=== PATIENT | female | born 1960 | race Caucasian/White ===

== ENCOUNTER → 2019-11-05 09:04 | Outpatient (BNVA) | payer MEDICARE, SELFPAY | PROVIDERS: Family Provider Family Medicine; PCP Family Medicine; Visit Provider Family Medicine | DX: I10 Essential (primary) hypertension (principal); E78.5 Hyperlipidemia, unspecified; E03.9 Hypothyroidism, unspecified; K21.9 Gastro-esophageal reflux disease without esophagitis; Z12.11 Encounter for screening for malignant neoplasm of colon; N95.1 Menopausal and female climacteric states; R39.9 Unspecified symptoms and signs involving the genitourinary system; I26.99 Other pulmonary embolism without acute cor pulmonale | CPT/HCPCS: 80053; 80061; 81003; 82044; 82607; 84443; 85025; 87077; 87086; 87186 ==

== ENCOUNTER 2019-11-07 09:24 | Outpatient (CLI) | payer MEDICARE, SELFPAY ==
--- NOTE | 2019-11-07 09:36 | MM_ITS ---
WS: [id number] BILATERAL SCREENING DIGITAL MAMMOGRAM WITH CAD HISTORY: SCREENING COMPARISON: 11/01/2018 and 10/25/2017 Bilateral CC and MLO views submitted. Computer aided detection analyzed. Breast composition: There are scattered areas of fibroglandular density. No suspicious masses, microc alcifications or architectural distortion. Benign calcifications and scattered asymmetries. MM/[place] [id number] IMPRESSION: BI-RADS: 2-Benign FOLLOW UP: 1 Year Follow-up
== END 2019-11-07 09:25 | disposition home or self-care (01) ==
LOC: RADSHAW 09:24
PROVIDERS: Family Provider Family Medicine; PCP Family Medicine; Visit Provider Family Medicine
DX: Z12.31 Encounter for screening mammogram for malignant neoplasm of breast (principal)
CPT/HCPCS: 77067

== ENCOUNTER 2019-12-12 07:13 | Day surgery (SDC) | payer MEDICARE, SELFPAY ==
[2019-12-11 13:54] VITALS: BMI 33.6
--- NOTE | 2019-12-12 07:50 | ANES.PREANE2 ---
Pre-Anesthetic Assessment Pre-Anesthetic Assessment: Height/Weight: Height 1.6 m Weight 86.183 kg Preop Diagnosis: abdominal pain Proposed Procedure: Operation Date: 12/12/19 09:05 Proposed Procedures p EGD/Colon 15386 75228 K59.00 R10.9(Not Applicable) - Toñito Daly MD s Colonoscopy(Not Applicable) - Toñito Daly MD Familial anesthetic complications: None Was Beta Leif taken within 24 hours: N/A Last intake: NPO > 8 hrs Social: Social History: No alcohol and No tobacco Exam: Pre-Anes Outpt Exam: alert, oriented x 3, clear to auscultation bilaterally and regular rate & rhythm Airway: Cervical ROM: WNL MP: 2 Dentition: False Additional comments: dentures Pulmonary: Comments: 2 PEs in june from DVT after bowel impaction (not on blood thinners anymore) CV/HEM: CV/HEM: HTN : : None reported Hepatic: Hepatic: None reported GI: GI: GERD Metabolic: Metabolic: Hyperlipidemia and Thyroid Neuropsych: Neuropsych: None reported Anesthetic Plan: ASA status: 2 Anesthesia: MAC Risk of > 500 ml blood loss (7ml/kg in children): No PFSH Anesthesia PFSH: Medical History (Updated 11/15/19 @ 11:18 by Toñito Daly MD) Bilateral pulmonary embolism Diagnosed in 06/20 - . for 3-6 months. Dyslipidemia Essential hypertension Fibromyalgia GERD (gastroesophageal reflux disease) Hot flashes due to menopause Hypothyroid Osteoarthritis Surgical History (Updated 11/15/19 @ 11:10 by Toñito Daly MD) H/O colonoscopy 10-15 yrs ago H/O: hysterectomy History of hip surgery History of tonsillectomy Social History Smoking and tobacco status: former smoker Alcohol intake: current Alcohol type: wine Household members: spouse Marital status: Current occupational status: retired Data Anesthesia Cardiac Studies: No Data to Display
[2019-12-12 08:15] VITALS: BP 143/90; PULSE 79; RESP 18; TEMP 36.3
[2019-12-12] MEDS: sodium chloride 0.9% 1,000 ML 30 ML (08:24)
--- NOTE | 2019-12-12 08:58 | P.HP_ITS ---
Same Day Surgery H&P Indication for Procedure/HPI DATE OF PROCEDURE: December 12, 2019 CHIEF COMPLAINT/INDICATIONFOR SURGICAL PROCEDURE: gerd/abdominal pain/constipation PREOP DIAGNOSIS: abdominal pain PLANNED PROCEDRUE: Operation Date: 12/12/19 09:05 Proposed Procedures p EGD/Colon 83850 04386 K59.00 R10.9(Not Applicable) - Toñito Daly MD s Colonoscopy(Not Applicable) - Toñito Daly MD Medications/Allergies* Home Medications Medication Instructions Recorded Confirmed Type aspirin 81 mg tablet,delayed 81 mg PO DAILY 11/05/19 12/12/19 History release polyethylene glycol 3350 17 gram 17 gm PO .qod each 11/05/19 12/12/19 History oral powder packet cholecalciferol (vitamin D3) 50,000 unit PO Q7D wafer 11/15/19 12/12/19 History 50,000 unit oral wafer multivitamin 1 tab PO DAILY 11/15/19 12/12/19 History estradiol 1 mg PO DAILY 12/11/19 12/12/19 History Allergies/Adverse Reactions Allergy/AdvReac Type Severity Reaction Status Date / Time No Known Allergies Allergy Verified 11/15/19 10:51 Pertinent History/Comorbid Conditions* Medical History (Updated 11/15/19 @ 11:18 by Toñito Daly MD) Bilateral pulmonary embolism Diagnosed in 06/20 - . for 3-6 months. Dyslipidemia Essential hypertension Fibromyalgia GERD (gastroesophageal reflux disease) Hot flashes due to menopause Hypothyroid Osteoarthritis Surgical History (Updated 11/15/19 @ 11:10 by Toñito Daly MD) H/O colonoscopy 10-15 yrs ago H/O: hysterectomy History of hip surgery History of tonsillectomy Family History (Updated 11/15/19 @ 10:57 by Jocelyn Monzon LPN) Diverticulitis Father Cancer Unknown thyroid, lung, breast, Denies family history of Anesthesia complication Bleeding disorder Social History Smoking and tobacco status: former smoker Alcohol intake: current Alcohol type: wine Household members: spouse Marital status: Current occupational status: retired Pertinent Exam Findings alert, oriented x 3 and clear to auscultation bilaterally Recommendations Surgery/Procedure today Coding Level of Care 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
[2019-12-12 09:24] VITALS: BP 116/67; PULSE 70; RESP 16; TEMP 36.6; O2SAT 96
[2019-12-12 09:39] VITALS: BP 120/77; PULSE 64; RESP 18; TEMP 36.5; O2SAT 97
== END 2019-12-12 10:28 | disposition home or self-care (01) ==
PROVIDERS: Family Provider Family Medicine; PCP Family Medicine; Visit Provider Surgery
PROC: 0DJ08ZZ Inspection of Upper Intestinal Tract, Via Natural or Artificial Opening Endoscopic (ICD-10-PCS; CPT 43235; principal; 2019-12-12 09:05)
PROC: 0DJD8ZZ Inspection of Lower Intestinal Tract, Via Natural or Artificial Opening Endoscopic (ICD-10-PCS; CPT 45378; 2019-12-12 09:05)
DX: R10.9 Unspecified abdominal pain (principal); K59.00 Constipation, unspecified; K29.30 Chronic superficial gastritis without bleeding; E78.5 Hyperlipidemia, unspecified; I10 Essential (primary) hypertension; M79.7 Fibromyalgia; K21.9 Gastro-esophageal reflux disease without esophagitis; M19.90 Unspecified osteoarthritis, unspecified site; Z87.891 Personal history of nicotine dependence; K44.9 Diaphragmatic hernia without obstruction or gangrene; Z86.711 Personal history of pulmonary embolism; Z86.718 Personal history of other venous thrombosis and embolism; E03.9 Hypothyroidism, unspecified
CPT/HCPCS: 12345; 43239; 45330; 88305; J2704; J7030

== ENCOUNTER 2019-12-13 07:05 | Day surgery (SDC) | payer MEDICARE, SELFPAY ==
[2019-12-12 10:24] VITALS: BMI 33.6
--- NOTE | 2019-12-13 07:31 | ANES.PREANE2 ---
Pre-Anesthetic Assessment Pre-Anesthetic Assessment: Height/Weight: Height 1.6 m Weight 86.183 kg Preop Diagnosis: abdominal pain Proposed Procedure: Operation Date: 12/13/19 08:30 Proposed Procedures p Colonoscopy(Not Applicable) - Toñito Daly MD Was Beta Leif taken within 24 hours: N/A Last Intake: 00:00 Social: Social History: No alcohol and No tobacco (hx of smoking 20 years ago) Exam: Pre-Anes Outpt Exam: alert, oriented x 3 and clear to auscultation bilaterally Airway: Submandibular: WNL Cervical ROM: WNL MP: 2 Dentition: Full (dentures out) History/ROS: No significant history except as noted Pulmonary: Pulmonary: None reported CV/HEM: CV/HEM: HTN : : None reported Hepatic: Hepatic: None reported GI: GI: GERD (uncontrolled with meds) Metabolic: Metabolic: Morbid obesity and Thyroid (hypothyroid) Musc/skel: Musc/skel: Fibromyalgia Neuropsych: Neuropsych: None reported Anesthetic Plan: ASA status: 2 Anesthesia: MAC PFSH Anesthesia PFSH: Medical History (Updated 11/15/19 @ 11:18 by Toñito Daly MD) Bilateral pulmonary embolism Diagnosed in 06/20 - Anticoag. for 3-6 months. Dyslipidemia Essential hypertension Fibromyalgia GERD (gastroesophageal reflux disease) Hot flashes due to menopause Hypothyroid Osteoarthritis Surgical History (Updated 11/15/19 @ 11:10 by Toñito Daly MD) H/O colonoscopy 10-15 yrs ago H/O: hysterectomy History of hip surgery History of tonsillectomy Social History Smoking and tobacco status: former smoker Alcohol intake: current Alcohol type: wine Household members: spouse Marital status: Current occupational status: retired Data Anesthesia Cardiac Studies: No Data to Display
[2019-12-13 07:33] VITALS: BP 137/80; PULSE 81; RESP 18; TEMP 36.1; O2SAT 99
[2019-12-13] MEDS: sodium chloride 0.9% 1,000 ML 30 ML (07:35)
[2019-12-13 09:11] VITALS: BP 106/69; PULSE 80; RESP 16; TEMP 36.3; O2SAT 93
[2019-12-13 09:19] VITALS: BP 113/70; PULSE 81; RESP 18; O2SAT 94
--- NOTE | 2019-12-13 10:02 | ANE.PACU2 ---
 Inpatient post-anesthesia follow up: Airway intact: Yes Vital signs: Temperature 97.3 F Pulse Rate 81 Respiratory Rate 18 Blood Pressure 113/70 Pulse Oximetry 94 Oxygen Delivery Me thod Room Air Oxygen Flow Rate 3 Fraction of Inspir ed Oxygen Hydration adequate: Yes Nausea and vomiting: No Pain level: 1 Mental status: Baseline
== END 2019-12-13 09:55 | disposition home or self-care (01) ==
PROVIDERS: Family Provider Family Medicine; PCP Family Medicine; Visit Provider Surgery
PROC: 0DJD8ZZ Inspection of Lower Intestinal Tract, Via Natural or Artificial Opening Endoscopic (ICD-10-PCS; CPT 45378; principal; 2019-12-13 08:30)
DX: K59.00 Constipation, unspecified (principal); K57.30 Diverticulosis of large intestine without perforation or abscess without bleeding; Z79.82 Long term (current) use of aspirin; E78.5 Hyperlipidemia, unspecified; I10 Essential (primary) hypertension; M79.7 Fibromyalgia; E03.9 Hypothyroidism, unspecified; M19.90 Unspecified osteoarthritis, unspecified site; Z87.891 Personal history of nicotine dependence
CPT/HCPCS: 45378; C9113; J2704; J7030

== ENCOUNTER → 2019-12-17 09:31 | Outpatient (BNVA) | payer MEDICARE, SELFPAY | PROVIDERS: Family Provider Family Medicine; PCP Family Medicine; Visit Provider Family Medicine | DX: E03.9 Hypothyroidism, unspecified (principal); R10.11 Right upper quadrant pain; N95.1 Menopausal and female climacteric states | CPT/HCPCS: 84443 ==

== ENCOUNTER 2019-12-27 07:01 | Outpatient (CLI) | payer MEDICARE, SELFPAY ==
--- NOTE | 2019-12-27 08:00 | US_ITS ---
WS: [id number] Complete ABDOMINAL ULTRASOUND HISTORY: RIGHT upper quadrant pain. COMPARISON: None available. Liver: 14.2 cm in length. Liver is normal size and echogenicity with no mass or intrahepatic dilatati on. Gallbladder: Normally distended gallbladder with numerous small stones. Stones measure up to 1.8 cm i n diameter. Gallbladder wall thickness: 0.2 cm. Pancreas: Head and tail of the pancreas are not visualized. CBD: 0.4 cm. Right kidney: 10.0 cm x 5.7 cm x 4.6 cm. No mass, cortical thickening or hydronephrosis. Left kidney: 10.4 cm x 5.3 cm x 5.5 cm. No mass, cortical thickening or hydronephrosis. Spleen: Normal size and echogenicity. Abdominal aorta and IVC are within normal limits. No ascites. US/US abdomen complete* [id number] IMPRESSION: 1. Cholelithiasis without acute cholecystitis. 2. No bile duct dilatation.
== END 2019-12-27 07:02 | disposition home or self-care (01) ==
LOC: US 07:03
PROVIDERS: Family Provider Family Medicine; PCP Family Medicine; Visit Provider Family Medicine
DX: R10.11 Right upper quadrant pain (principal); K80.20 Calculus of gallbladder without cholecystitis without obstruction
CPT/HCPCS: 76700

== ENCOUNTER → 2020-01-09 11:52 | Outpatient (BNVA) | payer MEDICARE, SELFPAY | PROVIDERS: Family Provider Family Medicine; PCP Family Medicine; Visit Provider Family Medicine | DX: R30.0 Dysuria (principal); N95.1 Menopausal and female climacteric states | CPT/HCPCS: 80053; 81000; 87077; 87086; 87186 ==

== ENCOUNTER 2020-01-29 17:23 | Emergency (ER) | payer MEDICARE, SELFPAY ==
[2020-01-29 17:32] VITALS: BP 136/70; PULSE 77; RESP 19; TEMP 36.8; O2SAT 97; BMI 34.0
--- NOTE | 2020-01-29 17:38 | US_ITS ---
WS: [id number] RIGHT UPPER QUADRANT ULTRASOUND HISTORY: RUQ pain, known gallbladder issue in past COMPARISON: 12/27/2019 Liver: 11.4 cm in length. Normal size and echogenicity with no intrahepatic dilatation. No mass. Gallbladder: Numerous stones in the gallbladder lumen. No hydrops. Stones are good size with a large amount shadowing at the neck. No pericholecystic fluid. CBD: 0.3 cm Pancreas: Normal size and echogenicity. Right kidney: 9.7 cm in length. Normal echogenicity with no mass or hydronephrosis. Aorta and IVC: Unremarkable. No ascites. US/US gall bladder [id number] IMPRESSION: Cholelithiasis, numerous gallstones with no evidence at this time of acute chol ecystitis.
--- NOTE | 2020-01-29 17:39 | W.ED.ABDPA2 ---
HPI - Abdominal Pain General: Chief Complaint: Abdominal Pain Stated Complaint: ABD PAIN Time Seen by Provider: 01/29/20 17:36 History of Present Illness: HPI narrative: Patient is a 59-year-old female who comes to the ED with abdominal pain. Past medical history of GERD, right upper quadrant pain, hypertension, PE, hypothyroid is him and dyslipidemia. Patient has been having on and off right upper quadrant pain for the past several months. Back in November patient had an ultrasound of the gallbladder done and it showed that she had some gallstones. She was going to have a surgery to get her gallbladder removed but due to COVID-19 her surgery has been canceled and put off to a later date. She says yesterday the pain got worse and continued today. She rates the pain an 8 out of 10 and it is all in the right upper quadrant. She denies any fever, vomiting, chest pain, shortness of breath, diarrhea, blood in the stool, constipation, dysuria, hematuria. Associated Symptoms: Reports nausea; Denies chills, constipation, diarrhea, dysuria, fever(s), hematochezia, hematuria and vomiting Review of Systems Const: Denies: fever, chills or fatigue Eyes: Denies: change in vision or eye discomfort ENMT: Denies: throat pain, painful swallowing, nasal discharge or nasal congestion Card: Denies: chest pain, palpitations, edema, swelling of feet/ankles, shortness of breath on exertion or shortness of breath when lying down Resp: Denies: shortness of breath, productive cough or non-productive cough GI: Reports: abdominal pain (RUQ) and nausea; Denies: vomiting, diarrhea, constipation or blood in stool : Denies: flank pain, painful urination or blood in urine Musc: Denies: neck pain, back pain or extremity swelling Skin/Breast: Denies: rash or new lesion Neuro: Denies: headache, numbness in extremities or weakness in extremities PFSH ED PFSH: Medical History Bilateral pulmonary embolism Diagnosed in 06/20 - Anticoag. for 3-6 months. Dyslipidemia Essential hypertension Fibromyalgia GERD (gastroesophageal reflux disease) Hot flashes due to menopause Hypothyroid Osteoarthritis Surgical History H/O colonoscopy 12/13/19: NORMAL, repeat in 10 years H/O: hysterectomy History of hip surgery History of tonsillectomy Family History Father Diverticulitis Unknown Cancer thyroid, lung, breast, Denies family history of Anesthesia complication Bleeding disorder Social History Smoking and tobacco status: never smoked Alcohol intake: current Alcohol type: wine Household members: spouse Marital status: Current occupational status: retired History of recent travel: No Physical Exam Const: COMMON NORMALS: oriented x3 HENMT: COMMON NORMALS: normocephalic HEAD & SCALP: normocephalic MOUTH: oral and palatal mucosa normal THROAT: posterior oropharynx normal and uvula midline Eye: COMMON NORMALS: PERRL PUPIL: Yes PERRL Neck/C-Spine: COMMON NORMALS: supple GENERAL: Yes normal visual inspection Resp: COMMON NORMALS: normal respiratory effort, no retractions, no use of accessory muscles and clear to auscultation bilaterally AUSCULTATION: clear to auscultation bilaterally Cardio: COMMON NORMALS: regular rate, regular rhythm, S1 normal heart sound, S2 normal heart sound, no gallops, no clicks, no murmurs and peripheral pulses 2+ throughout RATE: regular rate RHYTHM: regular rhythm HEART SOUNDS: S1 normal and S2 normal PERIPHERAL PULSES: pulses 2+ throughout GI: COMMON NORMALS: normal to inspection, nondistended, normoactive bowel sounds, soft to palpation and no masses AUSCULTATION: Yes normoactive bowel sounds PALPATION: Yes soft and Yes tender Details: RUQ (with positive Pizano's sign.) : COMMON NORMALS: Yes no CVA tenderness BLADDER/KIDNEY EXAM: Yes no CVA tenderness Back/Pelvis: COMMON NORMALS: no CVA tenderness Extremity: COMMON NORMALS: normal to inspection and no pedal edema Neuro: COMMON NORMALS: oriented x3 GAIT: Yes normal gait Skin: COMMON NORMALS: no rashes or lesions noted GENERAL SKIN EXAM: no rashes or lesions noted and dry skin Course Reevaluation(s): Reevaluation #1: Patient symptoms greatly improved after IV fluids, morphine and Zofran. I discussed with her the lab results and the ultrasound findings. Vital Signs: Vital signs: Vital Signs Temperature 98.2 F 01/29/20 17:32 Pulse Rate 63 01/29/20 20:16 Respiratory Rate 14 01/29/20 20:16 Blood Pressure 107/52 01/29/20 20:16 Pulse Oximetry 99 01/29/20 20:16 MDM - Abdominal Pain MDM Narrative: Medical decision making narrative: Patient is a 59-year-old female who comes to the ED with right upper quadrant abdominal pain. Patient has history of gallstones and right upper quadrant pain. She was going to get her gallbladder removed, but due to COVID-19 her surgery was canceled. CBC showed a white blood cell count of 7.7. Ultrasound of the gallbladder was performed and showed gallstones, but no obstruction or gallbladder wall thickening seen. Patient was given IV fluids, morphine and Zofran while here on the unit and her symptoms greatly improved. I discussed with patient that she should follow-up with the surgeon Dr. Daly on potentially getting surgery rescheduled. Patient was discharged with biliary colic and given a written prescription for hydrocodone and some Zofran for nausea. I told her to drink plenty of fluids and stay hydrated and she can return to the ED if symptoms worsen. Patient understood and agreed with plan. Lab Data: Attestation: I reviewed the patient's lab results. Labs: Lab Results 01/29/20 01/29/20 01/29/20 Range/Units 17:59 18:06 18:06 WBC 7.7 (4.0-10.0) 10^3/ uL RBC 4.07 L (4.1-5.3) 10^6/u L Hgb 11.7 (11.5-15.3) g/dL Hct 35.9 L (37.0-47.0) % MCV 88.2 (81-99) fL MCH 28.7 (28.0-34.0) pg MCHC 32.6 (30.0-36.0) g/dL RDW 14.4 (12.1-15.1) % Plt Count 443 H (130-400) 10^3/c mm MPV 11.1 H (7.4-10.4) fL Neut % (Auto) 44.7 % Lymph % (Auto) 44.5 % Haines % (Auto) 7.9 % Eos % (Auto) 1.4 % Baso % (Auto) 0.9 % Neut # (Auto) 3.4 (1.8-7.7) 10^3/u L Lymph # (Auto) 3.4 (0.8-4.8) 10^3/u L Haines # (Auto) 0.6 (0.2-0.9) 10^3/u L Eos # (Auto) 0.1 (0.0-0.8) 10^3/u L Baso # (Auto) 0.1 (0.0-0.1) 10^3/u L Nucleated RBC % (a uto) 0 % Nucleated RBCs # 0.0 /100WBC Sodium 141 (136-145) mmol/L Potassium 3.7 (3.5-5.1) mmol/L Chloride 100 (98-107) mmol/L Carbon Dioxide 29 (22-29) mmol/L Anion Gap 15.7 (5-19) BUN 16 (8-23) mg/dL Creatinine 1.1 H (0.5-0.9) mg/dL GFR Calculation 50.7 L (90-130) mL/min Glucose 103 (65-115) mg/dL Calculated Osmolal ity 289 (285-295) mOsm/k g Calcium 9.5 (8.5-10.5) mg/dL Total Bilirubin 0.2 (0.15-1.2) mg/dL AST 20 (0-32) U/L ALT 13 (0-33) U/L Alkaline Phosphata se 42 (35-105) IU/L Total Protein 7.2 (6.6-8.7) g/dL Albumin 4.2 (3.5-5.2) g/dL Globulin 3.0 (1.3-4.6) g/dL Lipase 28 (13-60) U/L Urine Color Yellow (Yellow) Urine Appearance Clear (CLEAR) Urine pH 9 H (5-7) Ur Specific Gravit y 1.020 (1.005-1.030) Urine Protein Neg (Negative) Urine Glucose (UA) Norm (Normal) Urine Ketones Negative (Negative) Urine Blood Neg (Negative) Urine Nitrate Negative (Negative) Urine Bilirubin Neg (NEGATIVE) Prot Sulfosalicyli c Acd Negative (Negative) Urine Urobilinogen Norm (Negative) mg/dL Ur Leukocyte Clara ase Negative (Negative) Urine RBC None (0-2) /hpf Urine WBC None (0-5) /hpf Ur Squamous Epith Cells 0-4 H (0-5) Urine Bacteria Trace (NONE) Imaging Data ^: US: Attestation: I personally reviewed and interpreted this imaging study as follows: Radiologist's impression: Ultrasound of the gallbladder?prelim report showed gallstones but no gallbladder wall thickening. contract technical writer stated there was no change when compared to ultrasound performed back in November. Discharge Plan Discharge Patient Disposition: Home, Self-Care Clinical Impression: Biliary colic symptom Gallstones without obstruction of gallbladder Qualifiers: Cholelithiasis location: gallbladder and bile duct Cholecystitis presence: without cholecystitis Qualified Code(s): K80.70 - Calculus of gallbladder and bile duct without cholecystitis without obstruction Condition: Stable Prescriptions: New Zofran 4 mg tablet 4 mg PO Q8H Qty: 14 RF: 0 No Action aspirin 81 mg tablet,delayed release (DR/EC) 81 mg PO DAILY RF: 0 polyethylene glycol 3350 [Miralax] 17 gram powder in packet 17 gm PO DAILY RF: 0 lisinopril 10 mg tablet 10 mg PO DAILY Qty: 90 RF: 1 fenofibrate nanocrystallized [Tricor] 145 mg tablet 145 mg PO DAILY Qty: 90 RF: 1 lovastatin 20 mg tablet 20 mg PO DAILY Qty: 90 RF: 1 pantoprazole [Protonix] 40 mg tablet,delayed release (DR/EC) 40 mg PO BID Qty: 180 RF: 1 cyclobenzaprine 10 mg tablet 10 mg PO TID Qty: 90 RF: 2 duloxetine [Cymbalta] 60 mg capsule,delayed release(DR/EC) 60 mg PO DAILY Qty: 90 RF: 1 oxybutynin chloride 5 mg tablet 5 mg PO BID Qty: 180 RF: 1 cholecalciferol (vitamin D3) 50,000 unit wafer 50,000 unit PO Q7D RF: 0 multivitamin Tablet 1 tab PO DAILY RF: 0 levothyroxine 112 mcg capsule 112 mcg PO DAILY Qty: 90 RF: 1 Azo Urinary Tab 2 tab PO DAILY RF: 0 Black Elderberry 2 tab PO DAILY RF: 0 Discharge Orders: Discharge Order (Routine); Ordered 01/29/20 Ordered By: Rosalio Jay Referrals: Lambert,Aviva, DO [Primary Care Provider] - Discharge Diet: Advance as tolerated Discharge Activity: Resume usual activity Patient Instructions: Biliary Colic (ED) Activity Restrictions/Additional Instructions: Call Dr. Daly within the next several days to discuss rescheduling your gallbladder surgery. Take the prescribed hydrocodone as needed for any acute pain. I am also sending you home with a prescription for Zofran and you can take that as needed for any nausea. Advance your diet as tolerated and try to avoid foods that aggravate symptoms. Drink plenty of fluids and stay hydrated. If you are having any worsening of symptoms he can return to the ED for reevaluation. 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
[2020-01-29 18:03] VITALS: O2SAT 93
[2020-01-29 18:13] VITALS: RESP 17
[2020-01-29] MEDS: morphine 4 mg/mL SDV 1 mL IVP (18:13)
[2020-01-29] MEDS: ondansetron 2 mg/ML SDV 2 mL 4 MG IVP (18:13)
[2020-01-29] MEDS: sodium chloride 0.9% 1,000 ML 999 ML IV (18:13)
[2020-01-29 18:40] LABS: Basophils # 0.1 10^3/uL (0.0-0.1); Basophils % 0.9 %; Eosinophils # 0.1 10^3/uL (0.0-0.8); Eosinophils % 1.4 %; Hematocrit 35.9 % (37.0-47.0); Hemoglobin 11.7 g/dL (11.5-15.3); Lymphocytes # 3.4 10^3/uL (0.8-4.8); Lymphocytes % 44.5 %; Mean Corpuscular HGB Conc 32.6 g/dL (30.0-36.0); Mean Corpuscular Hemoglobin 28.7 pg (28.0-34.0); Mean Corpuscular Volume 88.2 fL (81-99); Mean Platelet Volume 11.1 fL (7.4-10.4); Monocytes # 0.6 10^3/uL (0.2-0.9); Monocytes % 7.9 %; Neutrophils # 3.4 10^3/uL (1.8-7.7); Neutrophils % 44.7 %; Nucleated Red Blood Cells % 0 %; Platelet Count 443 10^3/cmm (130-400); Red Blood Count 4.07 10^6/uL (4.1-5.3); Red Cell Distribution Width 14.4 % (12.1-15.1); White Blood Count 7.7 10^3/uL (4.0-10.0)
--- NOTE | 2020-01-29 19:09 | PC.NURSE ---
Report received from Cedric VIVAS, and care transferred to SANGEETHA Cain
[2020-01-29 19:10] LABS: Alanine Aminotransferase 13 U/L (0-33); Albumin Level 4.2 g/dL (3.5-5.2); Alkaline Phosphatase 42 IU/L (35-105); Anion Gap 15.7 (5-19); Aspartate Amino Transferase 20 U/L (0-32); Blood Urea Nitrogen 16 mg/dL (8-23); Calcium 9.5 mg/dL (8.5-10.5); Carbon Dioxide 29 mmol/L (22-29); Chloride 100 mmol/L (98-107); Glomerular Filtration Rate 50.7 mL/min (90-130); Glucose 103 mg/dL (65-115); Lipase 28 U/L (13-60); Osmolality Calculated 289 mOsm/kg (285-295); Potassium 3.7 mmol/L (3.5-5.1); Sodium 141 mmol/L (136-145); Total Bilirubin 0.2 mg/dL (0.15-1.2); Total Protein 7.2 g/dL (6.6-8.7)
[2020-01-29 19:11] LABS: Bilirubin Urine Neg (NEGATIVE); Blood Urine Neg (Negative); Glucose Urine UA Norm (Normal); Ketones Urine Negative (Negative); Leukocyte Esterase Urine Negative (Negative); Nitrate Urine Negative (Negative); Protein Urine Neg (Negative); Sulfosalicylic Acid Urine Negative (Negative); Urine Appearance Clear (CLEAR); Urine Color Yellow (Yellow); Urobilinogen Urine Norm (Negative); pH Urine 9 (5-7)
[2020-01-29 19:12] LABS: Add Urine Culture? No; Bacteria Urine TRACE; Squamous Epithelial Cell Urine 0-4 (0-5)
[2020-01-29 19:15] VITALS: BP 101/48; PULSE 64; RESP 16; O2SAT 100
[2020-01-29 20:16] VITALS: BP 107/52; PULSE 63; RESP 14; O2SAT 99
--- NOTE | 2020-01-30 10:39 | DCPLANNER ---
manufacturing operations manager had message to schedule a follow up appointment for patient with Dr. Daly at [facility]. manufacturing operations manager called [facility], spoke with Jennifer. manufacturing operations manager gave clinic patients information, was told that it would be printed and reviewed. Clinic will call patient with appointment information.
--- NOTE | 2020-01-31 13:07 | DCPLANNER ---
Patient had an appointment scheduled for 01.31.20 with [facility] with Dr. Daly. Patient did attend the appointment.
== END 2020-01-29 20:20 | disposition home or self-care (01) ==
PROVIDERS: Emergency Provider Physician Assistant; Family Provider Family Medicine; PCP Family Medicine
DX: K80.70 Calculus of gallbladder and bile duct without cholecystitis without obstruction (principal); Z79.82 Long term (current) use of aspirin; Z86.711 Personal history of pulmonary embolism; E78.5 Hyperlipidemia, unspecified; I10 Essential (primary) hypertension; E03.9 Hypothyroidism, unspecified; K21.9 Gastro-esophageal reflux disease without esophagitis
CPT/HCPCS: 12345; 76705; 80053; 81001; 83690; 85025; 96360; 96361; 96374; 96375; 99283; J2270; J2405; J7030

== ENCOUNTER 2020-02-03 05:46 | Day surgery (SDC) | payer MEDICARE, SELFPAY ==
[2020-01-31 16:21] VITALS: BMI 34.0
[2020-02-03] VITALS (17 sets, daily range): BP systolic 113–146; BP diastolic 71–84; PULSE 59–96; RESP 14–24; TEMP 36.6–37.2; O2SAT 90–98
--- NOTE | 2020-02-03 06:23 | ANES.PREANE2 ---
Pre-Anesthetic Assessment Pre-Anesthetic Assessment: Height/Weight: Height 1.6 m Weight 87.09 kg Preop Diagnosis: Cholelithiasis Proposed Procedure: Operation Date: 02/03/20 07:20 Proposed Procedures p Laparoscopic Cholecystectomy 34650/K80.20(Not Applicable) - Toñito Daly MD Familial anesthetic complications: States her O2 sats will drop when she's given pain meds Was Beta Leif taken within 24 hours: N/A Last intake: Yesterday Social: Social History: No alcohol and No tobacco Exam: Pre-Anes Outpt Exam: alert, oriented x 3, clear to auscultation bilaterally and regular rate & rhythm Airway: Cervical ROM: WNL MP: 2 Dentition: False Pulmonary: Pulmonary: None reported CV/HEM: CV/HEM: HTN : : None reported Hepatic: Hepatic: None reported GI: GI: GERD Metabolic: Metabolic: Thyroid Musc/skel: Musc/skel: None reported Neuropsych: Neuropsych: None reported Anesthetic Plan: ASA status: 2 Anesthesia: General Risk of > 500 ml blood loss (7ml/kg in children): No PFSH Anesthesia PFSH: Social History Smoking and tobacco status: never smoked Alcohol intake: current Alcohol type: wine Household members: spouse Marital status: Current occupational status: retired History of recent travel: No Data Anesthesia Cardiac Studies: No Data to Display
[2020-02-03] MEDS: sodium chloride 0.9% 1,000 ML 30 ML IV (06:34)
--- NOTE | 2020-02-03 06:50 | W.PM.OPSUD ---
Surgery/Procedure H&P Update DATE OF PROCEDURE: February 03, 2020 DATE H&P PERFORMED: 01/31/20 H&P UPDATE INFORMATION: I have reviewed H&P completed within last 30 days, I have examined patient prior to procedure and No changes to prior documentation PREOP DIAGNOSIS: Cholelithiasis PLANNED PROCEDURE: Operation Date: 02/03/20 07:00 Proposed Procedures p Laparoscopic Cholecystectomy 56082/K80.20(Not Applicable) - Toñito Daly MD
--- NOTE | 2020-02-03 07:55 | PM.OP ---
Operative Report Date of procedure: February 03, 2020 Pre-op Diagnosis: Cholelithiasis Post-op diagnosis: same Procedure Done: Laparoscopic cholecystectomy Specimens removed/disposition: Gallbladder Surgeon: Toñito Daly Anesthesia: General Condition: stable Disposition: PACU Procedure: The patient was taken to the operating room and was intubated under general anesthesia. After the antibiotic had been administered, the abdomen was prepped and draped in a sterile manner. Using a #15 blade, a 1 centimeter infraumbilical curvilinear incision was made and using an open Mamie technique the peritoneal cavity was entered. A 10 millimeter port was placed and 15 millimeters of pneumoperitoneum was created. A 10 millimeter, 30 degrees scope was then introduced. Three 5 millimeter ports were placed in the epigastric, midclavicular and the anterior axillary line two fingerbreadths below the costal margin on the right side under the direct visualization. Ratcheted forceps were introduced into the lateral most port and was used to retract the fundus of the gallbladder cephalad and using forceps the infundibulum of the gallbladder was retracted laterally. Using L-hook cautery the peritoneum overlying the Calot's triangle was opened medially and laterally until the cystic duct and the cystic artery were skeletonized. Dissection was carried along the body of the gallbladder and after ensuring critical view of safety, 4 clips applied on the cystic duct and 3 clips applied on the cystic artery and cut leaving, 3 clips on the remaining portion of the duct and 2 clips on the remaining portion of the artery. The rest of the gallbladder was dissected off the liver using L-hook cautery. There was a small opening made in the body of the gallbladder with drainage of small amount of bile which was irrigated and suctioned out but there was no spillage of stones. There was no bleeding or bile leaking noted from the gallbladder fossa and the clips appeared to be in place. An EndoCatch bag was introduced to remove the gallbladder. All the ports were removed under direct visualization and there was no bleeding noted from the port sites. The fascia of the umbilicus was closed using [id number] 0 Vicryl sutures and the subcutaneous tissue was approximated using 3-0 Vicryl sutures. The skin at all four ports were closed using 4-0 Monocryl and Dermabond. A total of 10 millimeters of 0.5% Marcaine was infiltrated around the port sites. The patient was stable throughout the procedure.
--- NOTE | 2020-02-03 08:01 | SUR.PHASEI ---
0800 PATIENT TO OPS AT THIS TIME FROM OR. ORAL AIRWAY IN PLACE. SPO2 95% ON SIMPLE MASK AT 8L. 4 INCISIONS TO ABDOMEN, CDI.
--- NOTE | 2020-02-03 08:10 | SUR.PHASEI ---
0809 ORAL AIRWAY REMOVED AT THIS TIME. SPO2 97% ON SIMPLE MASK AT 8L.
[2020-02-03] MEDS: fentaNYL 50 mcg/mL INJ 2mL IVP ×2 (08:18→08:29)
[2020-02-03] MEDS: ondansetron 2 mg/ML SDV 2 mL 4 MG IVP ×3 (08:20→09:01)
--- NOTE | 2020-02-03 08:49 | SUR.PHASEI ---
0846 PATIENT TO OPS AT THIS TIME. PATIENT NOTED TO BE RESTING COMFORTABLE, WHEN PATIENT AWAKES SHE REPORTS PAIN 10/10. NAUSEA IMPROVED.
[2020-02-03] MEDS: morphine 4 mg/mL SDV 1 mL IVP (09:00)
[2020-02-03] MEDS: HYDROcodone-acetaminophen 5-325 mg Tablet 1 TAB PO (09:23)
== END 2020-02-03 09:55 | disposition home or self-care (01) ==
PROVIDERS: Family Provider Family Medicine; PCP Family Medicine; Visit Provider Surgery
PROC: 0FT44ZZ Resection of Gallbladder, Percutaneous Endoscopic Approach (ICD-10-PCS; CPT 47562; principal; 2020-02-03 07:00)
DX: K80.10 Calculus of gallbladder with chronic cholecystitis without obstruction (principal); I10 Essential (primary) hypertension; K21.9 Gastro-esophageal reflux disease without esophagitis; Z79.82 Long term (current) use of aspirin; E78.5 Hyperlipidemia, unspecified; M19.90 Unspecified osteoarthritis, unspecified site
CPT/HCPCS: 47562; 12345; 88304; 96374; 96375; J0690; J1100; J2001; J2270; J2405; J2704; J2710; J3010; J3490; J7030

== ENCOUNTER 2020-03-30 07:30 | Outpatient (CLI) | payer MEDICARE, SELFPAY ==
--- NOTE | 2020-03-30 08:00 | NM_ITS ---
WS: [id number] NUCLEAR MEDICINE GASTRIC STUDY CLINICAL INFORMATION: hiatal hernia TECHNIQUE: Following oral ingestion of cooked egg mixed with mCi technetium 99m sulfur colloid, anter ior images of the stomach were obtained over the course of 90 minutes. Activity curve was performed o danielle the course of 90 minutes with linear regression analysis. COMPARISON: None. FINDINGS: Ingestion of technetium 99m sulfur colloid egg mixture. Moderate delayed gastric emptying with 46% em ptying at 118 minutes. Only 18% emptying at 60 minutes. Calculated T1/2 is 145 minutes. (Normal 90 mi nutes) NM/NM gastric [place] st [id number] IMPRESSION: Delayed gastric emptying described above *Normal median T1 half 90 minutes for solid egg meal (45-110 minutes). Delayed gastric retention is defined as 90% retained at 1 hour, 60% at 2 hour s, 30% at 3 hours, and 10% at 4 hours (normal percent gastric retention is 37-9 0% at 1 hour, 30-60% at 2 hours, and 0-10% at 4 hours).
== END 2020-03-30 07:31 | disposition home or self-care (01) ==
LOC: NM 07:33
PROVIDERS: Family Provider Family Medicine; PCP Family Medicine; Visit Provider Surgery
DX: K44.9 Diaphragmatic hernia without obstruction or gangrene (principal)
CPT/HCPCS: 78264; A9541

== ENCOUNTER 2020-04-06 09:03 | Outpatient (CLI) | payer MEDICARE, SELFPAY ==
--- NOTE | 2020-04-06 09:15 | FL_ITS ---
WS: [id number] DOUBLE CONTRAST UPPER GI EXAMINATION HISTORY: K21.9 Gastro-esophageal reflux disease without esophagitis COMPARISON: 05/28/2019 CT evaluation. FLUOROSCOPY TIME: 2.0 minutes. Patient swallowed the barium mixture and air tablet without difficulty. Tertiary contractions in the mid to distal esophagus. The majority of the stomach is intrathoracic. T he greater curvature is positioned above the lesser curvature and there is a delayed emptying of the stomach into the duodenum. Marked distention of the stomach with air is likely symptomatic. Mild refl ux into the distal esophagus. No evidence for pneumatosis or wall thickening of the stomach. There is delayed emptying from the stomach and no additional barium was given. FL/FL upper GI w air* [id number] IMPRESSION: 1. 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 2. Entire stomach is intrathoracic. 3. Distal tertiary esophageal contractions and mild distal reflux.
== END 2020-04-06 09:04 | disposition home or self-care (01) ==
LOC: RAD 09:05
PROVIDERS: Family Provider Family Medicine; PCP Family Medicine; Visit Provider Surgery
DX: K21.9 Gastro-esophageal reflux disease without esophagitis (principal)
CPT/HCPCS: 74246

== ENCOUNTER 2020-04-07 16:53 | Observation (INO) | payer MEDICARE, SELFPAY ==
[2020-04-07] VITALS (13 sets, daily range): BP systolic 89–125; BP diastolic 60–79; PULSE 66–89; RESP 13–24; TEMP 36.5–37.4; O2SAT 95–100; BMI 34.5
--- NOTE | 2020-04-07 17:03 | CTR_ITS ---
PROCEDURE INFORMATION: Exam: CT Abdomen And Pelvis With Contrast Exam date and time: 04/07/2020 5:29 PM Age: 59 years old Clinical indication: Abdominal pain; Generalized; Prior surgery; Surgery date: 6+ months; Surgery type: Gb/hyst/ r-hip; Additional info: Abd pain TECHNIQUE: Imaging protocol: Computed tomography of the abdomen and pelvis with intravenous contrast. Radiation optimization: All CT scans at this facility use at least one of these dose optimization techniques: automated exposure control; mA and/or kV adjustment per patient size (includes targeted exams where dose is matched to clinical indication); or iterative reconstruction. Contrast material: VISI 320; Contrast volume: 95 ml; Contrast route: INTRAVENOUS (IV); COMPARISON: No relevant prior studies available. RADIATION DOSE METRICS: Total DLP (mGy-cm): 1401.2 FINDINGS: Limitations: Study is significantly limited by very dense contrast in the descending and sigmoid colon which creates significant streak artifact. Mediastinal space: A large hiatal hernia is present. Liver: There is no focal abnormality within the liver. Gallbladder and bile ducts: There has been a cholecystectomy. Pancreas: The pancreas is normal. Spleen: The spleen is normal. Adrenals: The adrenal glands are normal. Kidneys and ureters: There is a simple cyst in the right kidney. The left kidney is normal. There is no evidence of hydronephrosis. Stomach and bowel: The hiatal hernia contains most of the stomach. There is fluid distention of the region of the cecum and proximal ascending colon. There is focal thickening in the region of the hepatic flexure and ascending colon . This is of uncertain significance and could represent either focal contraction or spasm versus colonic tumor. Correlation with the patient's clinical history and any outside GI examination is suggested. Appendix: Not identified Intraperitoneal space: Unremarkable. No free air. No significant fluid collection. Vasculature: Unremarkable. No abdominal aortic aneurysm. Lymph nodes: Unremarkable. No enlarged lymph nodes. Bladder: Unremarkable as visualized. Reproductive: There has been a hysterectomy. Bones/joints: There is a right hip replacement.The lumbar spine demonstrates moderate degenerative changes at multiple levels. Soft tissues: Unremarkable. CT/CT abdomen pelvis w con* [id number] IMPRESSION: 1. Limited examination due to artifact created by dense contrast within portions of the colon. 2. Possible abnormality involving the ascending colon. Clinical correlation and further evaluation to exclude tumor is suggested. 3. Very large hiatus hernia. COMMENTS: Consistent with the [employer]'s Incidental Findings Committee white paper (J Am Alfonso Radiol 2018): Any incidental renal lesion less than 1.0 cm or classified as too small to characterize, or any incidental cystic renal lesion characterized as simple-appearing, is likely benign. No follow-up imaging is recommended for these lesions per consensus recommendations based on imaging criteria. Radiation Dose CTDIVOL = (mGy): DLP = 1401.2 (mGy-cm)
[2020-04-07 17:18] LABS: Basophils # 0.1 10^3/uL (0.0-0.1); Basophils % 0.6 %; Eosinophils # 0.2 10^3/uL (0.0-0.8); Eosinophils % 0.9 %; Hemoglobin 13.1 g/dL (11.5-15.3); Lymphocytes % 25.9 %; Mean Corpuscular Hemoglobin 28.9 pg (28.0-34.0); Mean Corpuscular Volume 90.5 fL (81-99); Mean Platelet Volume 11.3 fL (7.4-10.4); Monocytes # 1.1 10^3/uL (0.2-0.9); Monocytes % 5.6 %; Neutrophils # 12.7 10^3/uL (1.8-7.7); Neutrophils % 66.2 %; Nucleated Red Blood Cells % 0 %; Platelet Count 459 10^3/cmm (130-400); Red Blood Count 4.53 10^6/uL (4.1-5.3); Red Cell Distribution Width 14.2 % (12.1-15.1); White Blood Count 19.2 10^3/uL (4.0-10.0)
[2020-04-07] MEDS: ondansetron 2 mg/ML SDV 2 mL 4 MG IVP (17:23)
[2020-04-07] MEDS: morphine 4 mg/mL SDV 1 mL IVP ×2 (17:23→23:24)
[2020-04-07] MEDS: sodium chloride 0.9% 1,000 ML 999 ML IV (17:23)
--- NOTE | 2020-04-07 17:23 | W.ED.ABDPA2 ---
HPI - Abdominal Pain General: Chief Complaint: Abdominal Pain Stated Complaint: ABD PAIN Time Seen by Provider: 04/07/20 16:57 Source: patient and EMS Mode of arrival: EMS Limitations: no limitations History of Present Illness: HPI narrative: Dang is a 59 yo female that states has had abdominal pain for days. she states that it has worsened over the last 2 days. Pt states the pain is a 9/10. denies any fevers. Pt had a barium swallow yesterday and is following dr. gautam COPPOLA elicited complaint: abdominal pain Onset (ago): day(s) Pain Consistency: constant Location: Diffuse Severity: moderate Radiation: none Migration to: no migration Exacerbating factors: nothing Relieving factors: nothing Associated Symptoms: Denies chills, dysuria and fever(s) Review of Systems Const: Denies: fever(s), chills, body aches or change in appetite Eyes: Denies: blurry vision or eye discomfort ENMT: Denies: throat pain or dental pain Card: Denies: chest pain Resp: Denies: dyspnea GI: Reports: abdominal pain : Denies: dysuria Musc: Denies: neck pain or back pain Skin/Breast: Denies: rash Neuro: Denies: headache(s) Psych: Denies: depression Zacarias/Lymph: Denies: easy bruising All/Imm: Denies: urticaria PFSH ED PFSH: Medical History Bilateral pulmonary embolism Diagnosed in 06/20 - . for 3-6 months. Dyslipidemia Essential hypertension Fibromyalgia GERD (gastroesophageal reflux disease) Hot flashes due to menopause Hypothyroid Osteoarthritis Surgical History H/O colonoscopy 12/13/19: NORMAL, repeat in 10 years H/O: hysterectomy History of hip surgery History of tonsillectomy Status post laparoscopic cholecystectomy Family History Father Diverticulitis Unknown Cancer thyroid, lung, breast, Denies family history of Anesthesia complication Bleeding disorder Social History Smoking and tobacco status: never smoked Alcohol intake: current Alcohol type: wine Household members: spouse Marital status: Current occupational status: retired History of recent travel: No Physical Exam Const: COMMON NORMALS: patient oriented x3 and healthy appearing GENERAL APPEARANCE: in distress HENMT: COMMON NORMALS: normocephalic and atraumatic HEAD & SCALP: normocephalic and atraumatic Eye: COMMON NORMALS: Equal, round and reactive pupils present and EOMs intact bilaterally PUPIL: Yes Equal, round and reactive pupils present Neck/C-Spine: COMMON NORMALS: full ROM and supple Chest: COMMONS NORMALS: normal inspection of the chest and normal palpation of entire chest wall Resp: COMMON NORMALS: normal respiratory effort, No retractions, No use of accessory muscles and clear to auscultation bilaterally AUSCULTATION: clear to auscultation bilaterally Cardio: COMMON NORMALS: regular rate, regular rhythm and No murmurs present (Cardio) RATE: regular rate RHYTHM: regular rhythm GI: COMMON NORMALS: Normal to inspection, nondistended, normoactive bowel sounds present, Soft to palpation and no masses PALPATION: Yes Soft to palpation OTHER: diffuse abdominal tenderness Extremity: COMMON NORMALS: normal to inspection and full ROM Neuro: COMMON NORMALS: patient oriented x3, moves all extremities and no focal motor deficits Psych: COMMON NORMALS: mental status grossly normal, Normal thought process present and cooperative THOUGHT PROCESS: Normal thought process present Skin: COMMON NORMALS: no rashes or lesions noted and no wounds GENERAL SKIN EXAM: no rashes or lesions noted Course Vital Signs: Vital signs: Vital Signs Temperature 97.7 F 04/07/20 16:56 Pulse Rate 70 04/07/20 19:00 Respiratory Rate 13 04/07/20 19:00 Blood Pressure 117/69 04/07/20 19:00 Pulse Oximetry 97 04/07/20 19:00 MDM - Abdominal Pain MDM Narrative: Medical decision making narrative: Patient presents here with abdominal pain along with a leukocytosis. Patient's pain is improved here after IV pain meds. Patient CT scan showed no acute findings. I spoke to surgeon Dr. Newberry who is reviewed patient's scans and will admit for observation and trend her white count. Patient has no signs of acute surgical abdomen at this point. She has had no vomiting here. Lab Data: Labs: Lab Results 04/07/20 04/07/20 04/07/20 Range/Units 16:00 16:00 17:28 WBC 19.2 H (4.0-10.0) 10^3/ uL RBC 4.53 (4.1-5.3) 10^6/u L Hgb 13.1 (11.5-15.3) g/dL Hct 41.0 (37.0-47.0) % MCV 90.5 (81-99) fL MCH 28.9 (28.0-34.0) pg MCHC 32.0 (30.0-36.0) g/dL RDW 14.2 (12.1-15.1) % Plt Count 459 H (130-400) 10^3/c mm MPV 11.3 H (7.4-10.4) fL Neut % (Auto) 66.2 % Lymph % (Auto) 25.9 % Latimer % (Auto) 5.6 % Eos % (Auto) 0.9 % Baso % (Auto) 0.6 % Neut # (Auto) 12.7 H (1.8-7.7) 10^3/u L Lymph # (Auto) 5.0 H (0.8-4.8) 10^3/u L Latimer # (Auto) 1.1 H (0.2-0.9) 10^3/u L Eos # (Auto) 0.2 (0.0-0.8) 10^3/u L Baso # (Auto) 0.1 (0.0-0.1) 10^3/u L Nucleated RBC % (a uto) 0 % Nucleated RBCs # 0.0 /100WBC Sodium 137 (136-145) mmol/L Potassium 4.1 (3.5-5.1) mmol/L Chloride 98 (98-107) mmol/L Carbon Dioxide 23 (22-29) mmol/L Anion Gap 20.1 H (5-19) BUN 19 (8-23) mg/dL Creatinine 1.5 H (0.5-0.9) mg/dL GFR Calculation 35.4 L (90-130) mL/min Glucose 130 H (65-115) mg/dL Calculated Osmolal ity 282 L (285-295) mOsm/k g Lactate 1.6 (0.5-2.2) mmol/L Calcium 10.7 H (8.5-10.5) mg/dL Total Bilirubin 0.4 (0.15-1.2) mg/dL AST 21 (0-32) U/L ALT 12 (0-33) U/L Alkaline Phosphata se 50 (35-105) IU/L Total Protein 7.8 (6.6-8.7) g/dL Albumin 4.8 (3.5-5.2) g/dL Globulin 3.0 (1.3-4.6) g/dL Lipase 38 (13-60) U/L Imaging Data ^: CT Abd/Pel: Radiologist's impression: [address] [place] [address] CT Scan Report Signed Patient: Dang Zuniga Unit #: [id number] : 1960 Age/Sex: 59 / F ADM Date: 04/07/20 Loc: ER Room/Bed: Attending Dr: Ordering Provider/Ordering MD: Monika Lopez MD Date of Service: 04/07/20 Procedure(s): CT abdomen pelvis w con* [id number] Accession Number(s): [id number] Report Number: [id number] PROCEDURE INFORMATION: Exam: CT Abdomen And Pelvis With Contrast Exam date and time: 04/07/2020 5:29 PM Age: 59 years old Clinical indication: Abdominal pain; Generalized; Prior surgery; Surgery date: 6+ months; Surgery type: Gb/hyst/ r-hip; Additional info: Abd pain TECHNIQUE: Imaging protocol: Computed tomography of the abdomen and pelvis with intravenous contrast. Radiation optimization: All CT scans at this facility use at least one of these dose optimization techniques: automated exposure control; mA and/or kV adjustment per patient size (includes targeted exams where dose is matched to clinical indication); or iterative reconstruction. Contrast material: VISI 320; Contrast volume: 95 ml; Contrast route: INTRAVENOUS (IV); COMPARISON: No relevant prior studies available. RADIATION DOSE METRICS: Total DLP (mGy-cm): 1401.2 FINDINGS: Limitations: Study is significantly limited by very dense contrast in the descending and sigmoid colon which creates significant streak artifact. Mediastinal space: A large hiatal hernia is present. Liver: There is no focal abnormality within the liver. Gallbladder and bile ducts: There has been a cholecystectomy. Pancreas: The pancreas is normal. Spleen: The spleen is normal. Adrenals: The adrenal glands are normal. Kidneys and ureters: There is a simple cyst in the right kidney. The left kidney is normal. There is no evidence of hydronephrosis. Stomach and bowel: The hiatal hernia contains most of the stomach. There is fluid distention of the region of the cecum and proximal ascending colon. There is focal thickening in the region of the hepatic flexure and ascending colon . This is of uncertain significance and could represent either focal contraction or spasm versus colonic tumor. Correlation with the patient's clinical history and any outside GI examination is suggested. Appendix: Not identified Intraperitoneal space: Unremarkable. No free air. No significant fluid collection. Vasculature: Unremarkable. No abdominal aortic aneurysm. Lymph nodes: Unremarkable. No enlarged lymph nodes. Bladder: Unremarkable as visualized. Reproductive: There has been a hysterectomy. Bones/joints: There is a right hip replacement.The lumbar spine demonstrates moderate degenerative changes at multiple levels. Soft tissues: Unremarkable. CT/CT abdomen pelvis w con* [id number] IMPRESSION: 1. Limited examination due to artifact created by dense contrast within portions of the colon. 2. Possible abnormality involving the ascending colon. Clinical correlation and further evaluation to exclude tumor is suggested. 3. Very large hiatus hernia. Discharge Plan Discharge Patient Disposition: Admitted As Inpatient Clinical Impression: Abdominal pain Qualifiers: Abdominal location: generalized Qualified Code(s): R10.84 - Generalized abdominal pain Condition: Stable Referrals: Aviva Gomez DO [Primary Care Provider] - Patient Instructions: Cholecystitis (ED), Abdominal Pain (ED) Coding Level of Care Code ED Forensic Structural Engineer for [facility] Fwd Exam Comprehensive
--- NOTE | 2020-04-07 17:24 | PC.NURSE ---
blood lab specimen sent to lab with rags laborer.
[2020-04-07 17:40] LABS: Alanine Aminotransferase 12 U/L (0-33); Albumin Level 4.8 g/dL (3.5-5.2); Alkaline Phosphatase 50 IU/L (35-105); Anion Gap 20.1 (5-19); Aspartate Amino Transferase 21 U/L (0-32); Blood Urea Nitrogen 19 mg/dL (8-23); Calcium 10.7 mg/dL (8.5-10.5); Carbon Dioxide 23 mmol/L (22-29); Chloride 98 mmol/L (98-107); Glomerular Filtration Rate 35.4 mL/min (90-130); Glucose 130 mg/dL (65-115); Lipase 38 U/L (13-60); Osmolality Calculated 282 mOsm/kg (285-295); Potassium 4.1 mmol/L (3.5-5.1); Sodium 137 mmol/L (136-145); Total Bilirubin 0.4 mg/dL (0.15-1.2); Total Protein 7.8 g/dL (6.6-8.7)
[2020-04-07] MEDS: HYDROmorphone 1 mg/mL INJ 1 mL IVP ×2 (17:42→18:39)
[2020-04-07 17:49] LABS: Lactate (Lactic Acid level) 1.6 mmol/L (0.5-2.2)
[2020-04-07] MEDS: iodixanol 320 mg/mL 100mL Btl IV (18:02)
--- NOTE | 2020-04-07 18:09 | PC.NURSE ---
[address] via stretcher trade manager. 1809 pt back in room from ct. pt placed on continous cm, bp, and spo2 monitoring.
--- NOTE | 2020-04-07 19:08 | PC.NURSE ---
report given to willie romo
--- NOTE | 2020-04-07 19:09 | PC.NURSE ---
Report received from SANGEETHA Packer and SANGEETHA Ghosh and care transferred to SANGEETHA Cain
[2020-04-07] MEDS: polyethylene glycol 3350 Pkt 17 gm PO (19:40)
[2020-04-07] MEDS: sodium chloride 0.9% 1,000 ML 75 ML IV (19:40)
--- NOTE | 2020-04-07 21:15 | PC.NURSE ---
called to check on room to see it if was clean yet but room is not ready for patient at 2114
[2020-04-08] VITALS (7 sets, daily range): BP systolic 103–127; BP diastolic 54–70; PULSE 62–93; RESP 18–24; TEMP 36.9–37.7; O2SAT 94–96
[2020-04-08 03:11] LABS: Anion Gap 13.2 (5-19); Blood Urea Nitrogen 23 mg/dL (8-23); Calcium 8.6 mg/dL (8.5-10.5); Carbon Dioxide 23 mmol/L (22-29); Chloride 107 mmol/L (98-107); Glomerular Filtration Rate 56.6 mL/min (90-130); Glucose 140 mg/dL (65-115); Osmolality Calculated 287 mOsm/kg (285-295); Potassium 4.2 mmol/L (3.5-5.1); Sodium 139 mmol/L (136-145)
[2020-04-08 03:20] LABS: Basophils # 0.1 10^3/uL (0.0-0.1); Basophils % 0.3 %; Hematocrit 35.5 % (37.0-47.0); Hemoglobin 11.4 g/dL (11.5-15.3); Lymphocytes # 1.3 10^3/uL (0.8-4.8); Lymphocytes % 6.4 %; Mean Corpuscular HGB Conc 32.1 g/dL (30.0-36.0); Mean Corpuscular Hemoglobin 28.9 pg (28.0-34.0); Mean Corpuscular Volume 89.9 fL (81-99); Mean Platelet Volume 11.2 fL (7.4-10.4); Monocytes # 1.5 10^3/uL (0.2-0.9); Monocytes % 7.1 %; Neutrophils # 17.5 10^3/uL (1.8-7.7); Neutrophils % 85.8 %; Nucleated Red Blood Cells % 0 %; Platelet Count 353 10^3/cmm (130-400); Red Blood Count 3.95 10^6/uL (4.1-5.3); Red Cell Distribution Width 14.1 % (12.1-15.1); White Blood Count 20.5 10^3/uL (4.0-10.0)
--- NOTE | 2020-04-08 04:58 | PM.HP ---
Providers/Chief Complaint Admitting Physician: Jitendra Newberry MD Primary Care Provider: Aviva Gomez DO Chief Complaint: ABD PAIN History of Present Illness Chief Complaint: My belly hurts History of present illness: Ms Dang Zuniga is a 59 year old female, seen in my office as a referral for her paraesophageal hernia about a week ago or so and I did recommend to have an upper GI study that she did have following that patient started to have abdominal pain and apparently she came to the emergency department and found to have elevated WBC count of 19,000+, a CT scan of the abdomen and pelvis was obtained in the presence of a normal lactic acid and that showed: IMPRESSION: 1. Limited examination due to artifact created by dense contrast within portions of the colon. 2. Possible abnormality involving the ascending colon. Clinical correlation and further evaluation to exclude tumor is suggested. 3. Very large hiatus hernia. This patient was evaluated in the emergency department and she was given quite a bit of IV pain medications per Dr. Lopez's description and had unclear explanation of the WBC count, patient was observed overnight under my service for further evaluation. On morning rounds patient reports that she has burning in urine as well as lower abdominal pain, continues to pass gas but no bowel movement. Patient reports that she has at least 3 episodes of UTI every year, patient reports foul odor smelling of patient's urine Review of Systems General: Reports: 10 or more systems reviewed and unremarkable except in HPI and below Medications/Allergies Home Medications Medication Instructions Recorded Confirmed Last Taken Type aspirin 81 mg tablet,delayed 81 mg PO DAILY 11/05/19 04/07/20 04/07/20 History release cyclobenzaprine 10 mg tablet 10 mg PO TID #90 tab 11/05/19 04/07/20 04/07/20 Rx duloxetine 60 mg capsule,delayed 60 mg PO DAILY #90 cap 11/05/19 04/07/20 04/07/20 Rx release fenofibrate nanocrystallized 145 145 mg PO DAILY #90 tab 11/05/19 04/07/20 04/07/20 Rx mg tablet lisinopril 10 mg tablet 10 mg PO DAILY #90 tab 11/05/19 04/07/20 04/07/20 Rx lovastatin 20 mg tablet 20 mg PO DAILY #90 tab 11/05/19 04/07/20 04/06/20 Rx oxybutynin chloride 5 mg tablet 5 mg PO BID #180 tab 11/05/19 04/07/20 04/07/20 Rx polyethylene glycol 3350 17 gram 17 gm PO DAILY each 11/05/19 04/07/20 04/07/20 History oral powder packet multivitamin 1 tab PO DAILY 11/15/19 04/07/20 04/06/20 History levothyroxine 112 mcg capsule 112 mcg PO DAILY #90 cap 12/18/19 04/07/20 04/07/20 Rx Azo Urinary Tab 2 tab PO DAILY 01/29/20 04/07/20 04/07/20 History Black Elderberry 2 tab PO DAILY 01/29/20 04/07/20 04/07/20 History dexlansoprazole 60 mg 60 mg PO DAILY #30 cap 03/16/20 04/07/20 04/07/20 Rx capsule,biphase delayed release Allergies Allergy/AdvReac Type Severity Reaction Status Date / Time No Known Allergies Allergy Verified 04/07/20 17:58 PFSH Acute PFSH: Medical History Bilateral pulmonary embolism Diagnosed in 06/20 - ag. for 3-6 months. Dyslipidemia Essential hypertension Fibromyalgia GERD (gastroesophageal reflux disease) Hot flashes due to menopause Hypothyroid Osteoarthritis Surgical History H/O colonoscopy 12/13/19: NORMAL, repeat in 10 years H/O: hysterectomy History of hip surgery History of tonsillectomy Status post laparoscopic cholecystectomy Family History Father Diverticulitis Unknown Cancer thyroid, lung, breast, Denies family history of Anesthesia complication Bleeding disorder Social History Smoking and tobacco status: never smoked Alcohol intake: current Alcohol type: wine Household members: spouse Marital status: Current occupational status: retired History of recent travel: No Vitals/I&O/Wt Last Vital Signs Temp 99.4 F 04/07/20 23:54 Pulse 85 04/07/20 23:54 Resp 18 04/07/20 23:54 BP 119/67 04/07/20 23:54 Pulse Ox 97 04/07/20 23:54 04/07/20 04/07/20 04/08/20 14:59 22:59 06:59 Intake Total 1000 / 1000 Balance 1000 / 1000 Weight last 48 hrs Weight 195 lb Physical Exam Narrative: EXAM NARRATIVE: Patient is conscious alert oriented X3 BMI 35 Head and neck examination PERRLA no masses no cervical lymphadenopathy no jaundice Cardiac examination audible S1-S2 no murmurs no gallops no arrhythmias Chest is clear bilateral,abscence of Rhonchi or wheezes,no surgical emphysema Abdomen nontender except at the lower abdomen particularly at the left lower quadrant and suprapubic area nondistended soft no organomegaly guarding or rigidity/no signs of peritonitis Extremities no cyanosis no clubbing no edema Const: COMMON NORMALS: no acute distress Data : 04/08/20 10:21 04/08/20 02:22 A&P Assessment and plan (1) Dysuria: Status: Acute (2) Abdominal pain: After thorough history physical examination and reviewing the chart and images of the CT scan and the upper GI study with my personal interpretation, I do believe that the patient got dehydrated ended up by having UTI, the contrast is appreciated going all the way to the left side of the colon I do not see element of colonic obstruction. Definitely the patient does have a chronic incarcerated paraesophageal hernia but does not explain patient's presentation to the emergency department We will plan to start the patient on clear liquid diet and continue IV fluid hydration Repeated physical examination We will repeat blood work. urinalysis including culture and sensitivity and will start the patient empirically on Zosyn 3.375 mg IV every 8 hours Encourage ambulation Assurance and education All questions have been answered and all concerns have been addressed to patient's satisfaction. Status: Acute Qualifiers: Abdominal location: generalized Qualified Code(s): R10.84 - Generalized abdominal pain Attestations Medical Necessity Statement*: Observation status Time Spent in Patient Care: (>than 50% of time spent in counselling and/or direct pt care on unit). Coding Level of Care Code Acute Buildings And Grounds Coordinator for [facility] Fwd Exam Problem Focused Diagnoses Dysuria R30.0 Abdominal pain R10.84 Abdominal location: generalized
[2020-04-08] MEDS: piperacillin-tazobactam 3.375 GM in sodium chloride 0.9% (plus) 50 ML IV ×3 (06:05→23:31)
[2020-04-08] MEDS: acetaminophen 325 mg Tablet 650 MG PO (09:18)
[2020-04-08] MEDS: sodium chloride 0.9% 1,000 ML 75 ML IV (09:18)
--- NOTE | 2020-04-08 09:49 | PC.CHAP ---
Pastoral Care Encounter/Spiritual Assessment Type of Contact [] Declined industrial maintenance instructor visit [] Patient/Family/Request visit [] Outpatient visit [] Follow-up visit [] Physician referral [] Code/Alert [x] Routine visit [] Staff referral [] Actively dying [] Patient sleeping [] Family support [] [] Out of room [] Palliative care [] [] Receiving care in room [] Pre-surgical visit [] Trauma [] Long length of stay [] ICU visit [] Other: Relational/Emotional Strength [] Patient feels connected with others/family/visitors/staff [] Distress [] Loneliness/isolation [] Abandonment Spirituality of Patient [] Person of Leslie [] Attends [facility] of their Leslie [] Believes in Prayer [] Reads Bible or Evangelical materials [] There are Spiritual issues to be addressed Dental Laboratory Assistant Interventions [x] Prayer [x] Active listening [x] Non-anxious presence [x] Spiritual/emotional support [] Crisis/trauma care [] Spiritual counseling [] Bereavement support [] Provided bereavement packet [] Provided Bible/devotional materials [] Provided toy/stuffed animal, coloring book to patient or family member [] Provided Communion [] Anointing/[place] [] Salvation [x] Completed spiritual assessment [] Other: Impact on Illness or Injury [] Angry [] Fearful [] Anxious [] Often cries [] Exhaustion [] Unable to work [] Unable to attend hindu [] Unable to walk/stand [] Unable to read [] Unable to drive [] Unable to eat/drink [] Unable to sleep [] Unable to be with family [] Patient intubated [] Other: Summary Patient still dealing with pain.. but believes doctors will resolve issue. Patient has good attitude Time spent with patient 10 min
--- NOTE | 2020-04-08 10:23 | XRR_ITS ---
PROCEDURE INFORMATION: Exam: XR Chest, 2 Views Exam date and time: 04/08/2020 10:51 AM Age: 59 years old Clinical indication: Fever; Additional info: Fever and lecucystois TECHNIQUE: Imaging protocol: XR of the chest Views: 2 views. COMPARISON: CR Chest 1 [place] [id number] 05/28/2019 3:18 PM FINDINGS: Lungs: Lungs are well aerated without a focal area of consolidation. Pleural space: Unremarkable. No pleural effusion. No pneumothorax. Heart/Mediastinum: Moderate to large hiatal hernia. Bones/joints: Unremarkable. XR/XR chest 2V* [id number] IMPRESSION: Lungs are well aerated without a focal area of consolidation.
[2020-04-08 10:38] LABS: Basophils # 0.1 10^3/uL (0.0-0.1); Basophils % 0.2 %; Hematocrit 32.5 % (37.0-47.0); Hemoglobin 10.2 g/dL (11.5-15.3); Lymphocytes % 9.4 %; Mean Corpuscular HGB Conc 31.4 g/dL (30.0-36.0); Mean Corpuscular Hemoglobin 28.8 pg (28.0-34.0); Mean Corpuscular Volume 91.8 fL (81-99); Monocytes # 2.2 10^3/uL (0.2-0.9); Neutrophils # 17.3 10^3/uL (1.8-7.7); Neutrophils % 79.8 %; Nucleated Red Blood Cells % 0 %; Platelet Count 322 10^3/cmm (130-400); Red Blood Count 3.54 10^6/uL (4.1-5.3); Red Cell Distribution Width 14.3 % (12.1-15.1); White Blood Count 21.7 10^3/uL (4.0-10.0)
[2020-04-08 11:03] LABS: Add Urine Culture? Yes; Add Urine Microscopic? YES; Bacteria Urine 3+; Bilirubin Urine 1+ (NEGATIVE); Blood Urine Neg (Negative); Glucose Urine UA Norm (Normal); Ketones Urine Negative (Negative); Leukocyte Esterase Urine Trace (Negative); Nitrate Urine Positive (Negative); Protein Urine Neg (Negative); Squamous Epithelial Cell Urine 0-4 (0-5); Urine Appearance SL Hazy (CLEAR); Urine Color Yellow (Yellow); Urobilinogen Urine Norm (Negative)
[2020-04-08] MEDS: ondansetron 2 mg/ML SDV 2 mL 4 MG IVP (20:13)
[2020-04-08] MEDS: morphine 4 mg/mL SDV 1 mL IVP (20:13)
[2020-04-09] VITALS: BP 92/56; PULSE 83; RESP 20; TEMP 37.1; O2SAT 93
[2020-04-09 02:30] VITALS: PULSE 84; RESP 18; O2SAT 93
[2020-04-09 04:00] VITALS: BP 93/56; PULSE 80; RESP 20; TEMP 37.7; O2SAT 96
[2020-04-09] MEDS: acetaminophen 325 mg Tablet 650 MG PO (05:01)
[2020-04-09] MEDS: piperacillin-tazobactam 3.375 GM in sodium chloride 0.9% (plus) 50 ML IV (05:01)
[2020-04-09 05:26] LABS: Basophils # 0.1 10^3/uL (0.0-0.1); Basophils % 0.4 %; Eosinophils # 0.1 10^3/uL (0.0-0.8); Eosinophils % 0.5 %; Hematocrit 32.2 % (37.0-47.0); Hemoglobin 10.2 g/dL (11.5-15.3); Lymphocytes # 2.3 10^3/uL (0.8-4.8); Lymphocytes % 15.9 %; Mean Corpuscular HGB Conc 31.7 g/dL (30.0-36.0); Mean Corpuscular Hemoglobin 28.5 pg (28.0-34.0); Mean Corpuscular Volume 89.9 fL (81-99); Mean Platelet Volume 11.4 fL (7.4-10.4); Monocytes # 1.2 10^3/uL (0.2-0.9); Monocytes % 8.3 %; Neutrophils # 10.62 10^3/uL (1.8-7.7); Neutrophils % 74.4 %; Nucleated Red Blood Cells % 0 %; Platelet Count 301 10^3/cmm (130-400); Red Blood Count 3.58 10^6/uL (4.1-5.3); Red Cell Distribution Width 14.2 % (12.1-15.1); White Blood Count 14.3 10^3/uL (4.0-10.0)
[2020-04-09 05:27] LABS: Alanine Aminotransferase 28 U/L (0-33); Albumin Level 3.2 g/dL (3.5-5.2); Alkaline Phosphatase 59 IU/L (35-105); Anion Gap 11.8 (5-19); Aspartate Amino Transferase 35 U/L (0-32); Blood Urea Nitrogen 13 mg/dL (8-23); Calcium 8.7 mg/dL (8.5-10.5); Carbon Dioxide 24 mmol/L (22-29); Chloride 104 mmol/L (98-107); Globulin 2.8 g/dL (1.3-4.6); Glomerular Filtration Rate 73.2 mL/min (90-130); Glucose 100 mg/dL (65-115); Osmolality Calculated 278 mOsm/kg (285-295); Potassium 3.8 mmol/L (3.5-5.1); Sodium 136 mmol/L (136-145); Total Bilirubin 0.4 mg/dL (0.15-1.2)
[2020-04-09] MEDS: ondansetron 2 mg/ML SDV 2 mL 4 MG IVP (05:36)
--- NOTE | 2020-04-09 06:45 | P.SS_ITS ---
Short Stay Summary Providers Date of Admit/Discharge: 04/09/20 Attending Provider: Jitendra Newberry MD Primary Care Provider: Aviva Gomez DO Chief Complaint: ABD PAIN HPI History of Present Illness Dang Zuniga is a 59 year old female admitted through the emergency department due to worsening abdominal pain particularly on the lower abdomen, per history physical examination and reviewing the chart and looking into patient's previous history of UTIs patient demonstrated urinary tract infection that required antimicrobial therapy and that she did respond well with trending down leukocytosis. Patient was admitted on my service for observation and has been tolerating well p.o. intake and having a bowel movement and appropriate urine output Review of Systems General: Reports: 10 or more systems reviewed and unremarkable except in HPI and below Home Meds/Allergies Home Medications and Allergies Home Medications Medication Instructions Recorded Confirmed Type aspirin 81 mg tablet,delayed 81 mg PO DAILY 11/05/19 04/07/20 History release polyethylene glycol 3350 17 gram 17 gm PO DAILY each 11/05/19 04/07/20 History oral powder packet multivitamin 1 tab PO DAILY 11/15/19 04/07/20 History Azo Urinary Tab 2 tab PO DAILY 01/29/20 04/07/20 History Black Elderberry 2 tab PO DAILY 01/29/20 04/07/20 History Allergies Allergy/AdvReac Type Severity Reaction Status Date / Time No Known Allergies Allergy Verified 04/09/20 06:47 PFSH Acute PFSH: Medical History (Updated 04/09/20 @ 06:51 by Jitendra Newberry MD) Abdominal pain Condition resolved Bilateral pulmonary embolism Diagnosed in 06/20 - Anticoag. for 3-6 months. Dyslipidemia Dysuria We will send urinalysis and culture Start the patient empirically on Zosyn Repeated physical examination Essential hypertension Fibromyalgia GERD (gastroesophageal reflux disease) Hot flashes due to menopause Hypothyroid Osteoarthritis Surgical History H/O colonoscopy 12/13/19: NORMAL, repeat in 10 years H/O: hysterectomy History of hip surgery History of tonsillectomy Status post laparoscopic cholecystectomy Family History Father Diverticulitis Unknown Cancer thyroid, lung, breast, Denies family history of Anesthesia complication Bleeding disorder Social History Smoking and tobacco status: never smoked Alcohol intake: current Alcohol type: wine Household members: spouse Marital status: Current occupational status: retired History of recent travel: No Vitals/I&O/Wt Last Vital Signs Temp 99.9 F H 04/09/20 04:00 Pulse 80 04/09/20 04:00 Resp 20 H 04/09/20 04:00 BP 93/56 04/09/20 04:00 Pulse Ox 96 04/09/20 04:00 04/08/20 04/08/20 04/09/20 14:59 22:59 06:59 Intake Total 2079 / 2079 1130 / 3210 50 / 3260 Output Total 850 / 850 400 / 1250 Balance 2079 280 / 2360 -350 / 2010 Weight last 48 hrs Weight 195 lb Physical Exam Narrative: EXAM NARRATIVE: Patient is conscious alert oriented X3 BMI 34.5 Head and neck examination PERRLA no masses no cervical lymphadenopathy no jaundice Abdomen nontender nondistended soft no organomegaly guarding or rigidity/no signs of peritonitis Extremities no cyanosis no clubbing no edema Hospital Course Discharge Summary: Patient was admitted because of worsening abdominal pain and has been responding well to antimicrobial therapy as apparently she has been having UTI, likely due to dehydration. Ultrasound of kidneys was obtained today and showed: Right kidney: 10.9 cm x 5.5 cm x 4.8 cm. Normal echogenicity with no hydronephrosis or mass. Left kidney: 12.7 cm x 6.6 cm x 6.2 cm. Normal echogenicity with no hydronephrosis or mass. Aorta: Normal. Urinary Bladder: Normal distention. No filling defects or masses within the bladder. US/US renal BI with bladder IMPRESSION: Normal renal ultrasound. Normal urinary bladder ultrasound. We will plan to send the patient home today on 14 days of Levaquin and have her follow-up with Dr. Ashton for urology consultation. SSS Data Data Completed and Pending: Completed Studies During Hospitalization Category Date Time Status CT abdomen pelvis w con* [id number] Urge nt Cat Scan 04/07/20 17:03 Completed XR chest 2V* [id number] Urgent Exams 04/08/20 10:23 Completed Pending at discharge Category Date Time Status Urine Culture Sta t Lab 04/08/20 08:45 Received Diagnoses at Discharge Discharge Diagnosis (1) Dysuria: Status: Resolved Problem details: We will send urinalysis and culture Start the patient empirically on Zosyn Repeated physical examination (2) Abdominal pain: Status: Resolved Problem details: Condition resolved Qualifiers: Abdominal location: generalized Qualified Code(s): R10.84 - Generalized abdominal pain (3) Recurrent UTI: Status: Acute Problem details: After further discussing the case with Dr. Marquez the hospitalist, he re commended to start the patient on Levaquin 750 mg p.o. daily for 14 days course, based on review of her latest culture that was done back in January 09 2020. Also will plan to have the patient follow-up with Dr. Ashton for further evaluation and work-up due to the recurrent nature of UTI. Patient was counseled to keep her 1 more night in the hospital on IV antibiotics but she elected to be discharged home as she would feel better at home and she would be compliant with p.o. antimicrobial therapy. Discharge Plan Discharge Patient Disposition: Home, Self-Care Condition: Stable Prescriptions: New Levaquin 750 mg tablet 750 mg PO DAILY 14 Days Qty: 28 RF: 0 Continued aspirin 81 mg tablet,delayed release (DR/EC) 81 mg PO DAILY RF: 0 polyethylene glycol 3350 [Miralax] 17 gram powder in packet 17 gm PO DAILY RF: 0 lisinopril 10 mg tablet 10 mg PO DAILY Qty: 90 RF: 1 fenofibrate nanocrystallized [Tricor] 145 mg tablet 145 mg PO DAILY Qty: 90 RF: 1 lovastatin 20 mg tablet 20 mg PO DAILY Qty: 90 RF: 1 cyclobenzaprine 10 mg tablet 10 mg PO TID Qty: 90 RF: 2 duloxetine [Cymbalta] 60 mg capsule,delayed release(DR/EC) 60 mg PO DAILY Qty: 90 RF: 1 oxybutynin chloride 5 mg tablet 5 mg PO BID Qty: 180 RF: 1 multivitamin Tablet 1 tab PO DAILY RF: 0 Dexilant 60 mg capsule,biphase delayed releas 60 mg PO DAILY Qty: 30 RF: 3 levothyroxine 112 mcg capsule 112 mcg PO DAILY Qty: 90 RF: 1 Azo Urinary Tab 2 tab PO DAILY RF: 0 Black Elderberry 2 tab PO DAILY RF: 0 Discharge Orders: Discharge Order (Routine); Ordered 04/09/20 Ordered By: Jitendra Newberry Referrals: Jitendra Newberry MD [Physician] - 04/23/20 9:45 am (Return to surgery office in 2-week. You have a hospital follow up appointment on April 23 at 9:45.) Mateo Ashton MD [Physician] - (Ultrasound both kidneys to be done prior to be seen by urology service. You have a Ultrasound appointment. Dr. Salazar of [facility] [place] will call you at home with an appointment.) Aviva Gomez DO [Primary Care Provider] - 04/16/20 2:15 pm (You have a hospital follow up appointment with Aviva on April 16 at 2:15pm.) Discharge Diet: Advance as tolerated Discharge Activity: Resume usual activity Patient Instructions: Levofloxacin (By mouth), Urinary Tract Infection in Women (DC) Activity Restrictions/Additional Instructions: Resume usual activity Focus on appropriate hydration Compliance with antimicrobial therapy Return to the ER if symptoms worse Attestations Medical Necessity Statement*: Observation status Time Spent in Patient Care*: greater than 30 min Specific Discharge Activities: Specific discharge activities: educating patient Status at Discharge: Cognitive status at discharge: cognitively intact , Functional status at discharge: independent ambulation Overall status at discharge: patient is back to baseline Quality Metrics Clinical Quality Measures: During this hospital stay, did patient experience: None Coding Level of Care Code Acute Fiscal Specialist for Chg Fwd Diagnoses Dysuria R30.0 Abdominal pain R10.84 Abdominal location: generalized Recurrent UTI N39.0
[2020-04-09 07:33] VITALS: BP 96/60; PULSE 77; RESP 16; TEMP 37.1; O2SAT 95
--- NOTE | 2020-04-09 07:54 | US_ITS ---
WS: [id number] RENAL ULTRASOUND URINARY BLADDER ULTRASOUND HISTORY: Recurrent urinary tract infection COMPARISON: None available. TECHNIQUE: 2-D and color Doppler imaging of the kidney submitted. Right kidney: 10.9 cm x 5.5 cm x 4.8 cm. Normal echogenicity with no hydronephrosis or mass. Left kidney: 12.7 cm x 6.6 cm x 6.2 cm. Normal echogenicity with no hydronephrosis or mass. Aorta: Normal. Urinary Bladder: Normal distention. No filling defects or masses within the bladder. US/US renal BI with bladder IMPRESSION: Normal renal ultrasound. Normal urinary bladder ultrasound.
[2020-04-09] MEDS: sodium chloride 0.9% 1,000 ML 75 ML IV (09:46)
[2020-04-09 12:32] VITALS: BP 96/60; PULSE 77; RESP 16; TEMP 37.1; O2SAT 95
== END 2020-04-09 12:33 | disposition home or self-care (01) ==
LOC: ER 19:29 → MEDSURG 19:38
PROVIDERS: Emergency Medicine; Admitting Provider Surgery; Family Provider Family Medicine; PCP Family Medicine; Visit Provider Surgery
DX: R30.0 Dysuria (principal); R10.84 Generalized abdominal pain; N39.0 Urinary tract infection, site not specified; Z87.440 Personal history of urinary (tract) infections; Z79.82 Long term (current) use of aspirin; I10 Essential (primary) hypertension; M79.7 Fibromyalgia; E03.9 Hypothyroidism, unspecified; M19.90 Unspecified osteoarthritis, unspecified site
CPT/HCPCS: 12345; 36415; 71046; 74177; 76770; 76857; 80048; 80053; 81001; 81003; 83605; 83690; 85025; 87077; 87086; 87186; 96361; 96365; 96366; 96374; 96375; 96376; 99283; 99285; G0378; J1170; J2270; J2405; J2543; J7030; Q9967

== ENCOUNTER → 2020-04-16 14:50 | Outpatient (BNVA) | payer MEDICARE, SELFPAY | PROVIDERS: Family Provider Family Medicine; PCP Family Medicine; Visit Provider Family Medicine | DX: E03.9 Hypothyroidism, unspecified (principal); E78.5 Hyperlipidemia, unspecified | CPT/HCPCS: 80061; 84443 ==

== ENCOUNTER → 2020-04-29 16:34 | Outpatient (BNVA) | payer MEDICARE, SELFPAY | PROVIDERS: Family Provider Family Medicine; PCP Family Medicine; Referring Provider Surgery; Visit Provider Nurse Practitioner Family | DX: N39.0 Urinary tract infection, site not specified (principal) | CPT/HCPCS: 80053; 81001 ==

== ENCOUNTER 2020-05-10 16:20 | Inpatient (IN) | payer MEDICARE, SELFPAY ==
--- NOTE | 2020-05-10 16:28 | CTR_ITS ---
PROCEDURE INFORMATION: Exam: CT Abdomen And Pelvis With Contrast Exam date and time: 05/10/2020 4:52 PM Age: 59 years old Clinical indication: Abdominal pain; Localized; Right lower quadrant (rlq); Prior surgery; Surgery date: 6+ months; Surgery type: Gb, hyst, hip; Patient HX: C/O rlq pain nausea weakness and diarrhea today; Additional info: Abd pain TECHNIQUE: Imaging protocol: Computed tomography of the abdomen and pelvis with intravenous contrast. Radiation optimization: All CT scans at this facility use at least one of these dose optimization techniques: automated exposure control; mA and/or kV adjustment per patient size (includes targeted exams where dose is matched to clinical indication); or iterative reconstruction. Contrast material: VISI 320; Contrast volume: 95 ml; Contrast route: INTRAVENOUS (IV); COMPARISON: CT abdomen pelvis w con* [id number] 04/07/2020 5:52 PM RADIATION DOSE METRICS: Total DLP (mGy-cm): 1031.12 FINDINGS: Mediastinal space: Large paraesophageal hernia with organo-axial volvulus. Liver: Normal. No mass. Gallbladder and bile ducts: The gallbladder has been removed. Pancreas: Normal. No ductal dilation. Spleen: Normal. No splenomegaly. Adrenals: Normal. No mass. Kidneys and ureters: There is a sub cm right renal cyst with benign features. No follow-up is necessary. Stomach and bowel: There is mucosal thickening of the distal transverse, descending, and rectosigmoid colon with associated mesenteric inflammatory stranding. Fluid is present in the proximal colon. Appendix: A normal appendix is identified. Intraperitoneal space: Unremarkable. No free air. No significant fluid collection. Vasculature: Unremarkable. No abdominal aortic aneurysm. Lymph nodes: Unremarkable. No enlarged lymph nodes. Bladder: Unremarkable as visualized. Reproductive: The uterus is not visualized, consistent with hysterectomy. Bones/joints: There is a right total hip replacement. There are degenerative changes in the visualized spine most severe across the L4-L5 level where a broad-based disc osteophyte complex contributes to bilateral neural foraminal narrowing. Soft tissues: Tiny fat containing umbilical hernia. CT/CT abdomen pelvis w con* [id number] IMPRESSION: 1. There is mucosal thickening of the distal transverse, descending, and rectosigmoid colon with associated mesenteric inflammatory stranding. Fluid is present in the proximal colon. Findings are consistent with a nonspecific colitis. 2. Large paraesophageal hernia with organo-axial volvulus. COMMENTS: Consistent with the [employer]'s Incidental Findings Committee white paper (J Am Alfonso Radiol 2018): Any incidental renal lesion less than 1.0 cm or classified as too small to characterize, or any incidental cystic renal lesion characterized as simple-appearing, is likely benign. No follow-up imaging is recommended for these lesions per consensus recommendations based on imaging criteria. Radiation Dose CTDIVOL = (mGy): DLP = 1031.12 (mGy-cm)
--- NOTE | 2020-05-10 16:28 | XRR_ITS ---
PROCEDURE INFORMATION: Exam: XR Chest, 1 View Exam date and time: 05/10/2020 4:29 PM Age: 59 years old Clinical indication: Other: Weakness; Additional info: Fever TECHNIQUE: Imaging protocol: XR of the chest Views: 1 view. COMPARISON: CR XR chest 2V* [id number] 04/08/2020 10:50 AM FINDINGS: Lungs: There is minimal increased opacity at the left lung base which represent atelectatic change. Pneumonia can't be excluded. Pleural space: Unremarkable. No pleural effusion. No pneumothorax. Heart/Mediastinum: Large hiatal hernia with an air-fluid level. This was seen on the prior study as well. Bones/joints: Unremarkable. XR/XR chest 1V portable [id number] IMPRESSION: Large hiatal hernia. There is minimal increased opacity at the left lung base which represent atelectatic change. Pneumonia can't be excluded.
[2020-05-10 16:33] VITALS: BP 100/53; PULSE 76; RESP 18; TEMP 36.8; O2SAT 100; BMI 33.6
--- NOTE | 2020-05-10 16:33 | ED_ITS ---
HPI - Abdominal Pain General: Chief Complaint: Weakness Stated Complaint: NAUSEA / WEAKNESS / MULTI COMPLAINTS Time Seen by Provider: 05/10/20 16:22 Source: patient and EMS Mode of arrival: EMS Limitations: no limitations History of Present Illness: HPI narrative: 59-year-old female who is here by EMS. Patient states she has been feeling weak has had diarrhea and right lower quadrant abdominal pain since noon. Per EMS her blood pressures were in the 80s originally and is now 100 after IV fluid. Patient given pain meds and nausea meds in route states she feels slightly better but still has the pain. Denies any fever. Denies any cough. Denies any shortness of breath. MD elicited complaint: abdominal pain Associated Symptoms: Reports diarrhea and nausea; Denies chills, dysuria and fever(s) Review of Systems 2 Const: Denies: fever(s), chills, body aches or change in appetite Eyes: Denies: blurry vision or eye discomfort ENMT: Denies: throat pain or dental pain Card: Denies: chest pain Resp: Denies: dyspnea GI: Reports: abdominal pain, nausea and diarrhea : Denies: dysuria Musc: Denies: neck pain or back pain Skin/Breast: Denies: rash Neuro: Denies: headache(s) Psych: Denies: depression Zacarias/Lymph: Denies: easy bruising All/Imm: Denies: urticaria PFSH ED PFSH: Medical History Abdominal pain Condition resolved Bilateral pulmonary embolism Diagnosed in 06/20 - Anticoag. for 3-6 months. Dyslipidemia Dysuria We will send urinalysis and culture Start the patient empirically on Zosyn Repeated physical examination Essential hypertension Fibromyalgia GERD (gastroesophageal reflux disease) Hot flashes due to menopause Hypothyroid Osteoarthritis Surgical History H/O colonoscopy 12/13/19: NORMAL, repeat in 10 years H/O: hysterectomy History of hip surgery History of tonsillectomy Status post laparoscopic cholecystectomy Family History Father Diverticulitis Unknown Cancer thyroid, lung, breast, Denies family history of Anesthesia complication Bleeding disorder Social History Smoking and tobacco status: never smoked Alcohol intake: current Alcohol type: wine Household members: spouse Marital status: Current occupational status: retired History of recent travel: No Physical Exam Const: COMMON NORMALS: no acute distress, patient oriented x3 and healthy appearing HENMT: COMMON NORMALS: normocephalic and atraumatic HEAD & SCALP: normocephalic and atraumatic Eye: COMMON NORMALS: Equal, round and reactive pupils present and EOMs intact bilaterally PUPIL: Yes Equal, round and reactive pupils present Neck/C-Spine: COMMON NORMALS: full ROM and supple Chest: COMMONS NORMALS: normal inspection of the chest and normal palpation of entire chest wall Resp: COMMON NORMALS: normal respiratory effort, No retractions, No use of accessory muscles and clear to auscultation bilaterally AUSCULTATION: clear to auscultation bilaterally Cardio: COMMON NORMALS: regular rate, regular rhythm and No murmurs present (Cardio) RATE: regular rate RHYTHM: regular rhythm GI: COMMON NORMALS: Normal to inspection, nondistended, normoactive bowel sounds present, Soft to palpation and no masses PALPATION: Yes Soft to palpation and Yes Tenderness to palpation present (GI) Details: RLQ Extremity: COMMON NORMALS: normal to inspection and full ROM Neuro: COMMON NORMALS: patient oriented x3, moves all extremities and no focal motor deficits Psych: COMMON NORMALS: mental status grossly normal, Normal thought process present and cooperative THOUGHT PROCESS: Normal thought process present Skin: COMMON NORMALS: no rashes or lesions noted and no wounds GENERAL SKIN EXAM: no rashes or lesions noted Course Vital Signs: Vital signs: Vital Signs Temperature 98.3 F 05/10/20 16:33 Pulse Rate 70 05/10/20 17:41 Respiratory Rate 17 05/10/20 17:41 Blood Pressure 101/59 05/10/20 17:41 Pulse Oximetry 100 05/10/20 17:42 MDM - Abdominal Pain MDM Narrative: Medical decision making narrative: Patient presents here with abdominal pain is found to have colitis. Patient was hypotensive but blood pressure is much improved after IV fluids. Patient has a leukocytosis. Patient started on IV antibiotics I spoke to hospitalist and will admit. Lab Data: Labs: Lab Results 08/09/20 08/09/20 08/09/20 Range/Units 16:35 16:35 16:35 WBC 21.7 H (4.0-10.0) 10^3/ uL RBC 4.24 (4.1-5.3) 10^6/u L Hgb 11.8 (11.5-15.3) g/dL Hct 38.1 (37.0-47.0) % MCV 89.9 (81-99) fL MCH 27.8 L (28.0-34.0) pg MCHC 31.0 (30.0-36.0) g/dL RDW 14.7 (12.1-15.1) % Plt Count 364 (130-400) 10^3/c mm MPV 10.3 (7.4-10.4) fL Neut % (Auto) 86.6 % Lymph % (Auto) 4.9 % Elmore % (Auto) 7.5 % Eos % (Auto) 0.1 % Baso % (Auto) 0.3 % Neut # (Auto) 18.85 H (1.8-7.7) 10^3/u L Lymph # (Auto) 1.1 (0.8-4.8) 10^3/u L Elmore # (Auto) 1.6 H (0.2-0.9) 10^3/u L Eos # (Auto) 0.0 (0.0-0.8) 10^3/u L Baso # (Auto) 0.1 (0.0-0.1) 10^3/u L Nucleated RBC % (a uto) 0 % Nucleated RBCs # 0.0 /100WBC Sodium 137 (136-145) mmol/L Potassium 4.7 (3.5-5.1) mmol/L Chloride 104 (98-107) mmol/L Carbon Dioxide 22 (22-29) mmol/L Anion Gap 15.7 (5-19) BUN 15 (8-23) mg/dL Creatinine 1.4 H (0.5-0.9) mg/dL GFR Calculation 38.4 L (90-130) mL/min Glucose 118 H (65-115) mg/dL POC Glucose (70-110) mg/dL Calculated Osmolal ity 281 L (285-295) mOsm/k g Lactate 1.5 (0.5-2.2) mmol/L Calcium 9.6 (8.5-10.5) mg/dL Total Bilirubin 0.2 (0.15-1.2) mg/dL AST 21 (0-32) U/L ALT 14 (0-33) U/L Alkaline Phosphata se 62 (35-105) IU/L Total Protein 6.8 (6.6-8.7) g/dL Albumin 4.2 (3.5-5.2) g/dL Globulin 2.6 (1.3-4.6) g/dL Lipase 19 (13-60) U/L Urine Color (Yellow) Urine Appearance (CLEAR) Urine pH (5-7) Ur Specific Gravit y (1.005-1.030) Urine Protein (Negative) Urine Glucose (UA) (Normal) Urine Ketones (Negative) Urine Blood (Negative) Urine Nitrate (Negative) Urine Bilirubin (NEGATIVE) Urine Urobilinogen (Negative) mg/dL Ur Leukocyte Clara ase (Negative) Urine RBC (0-2) /hpf Urine WBC (0-5) /hpf Ur Squamous Epith Cells (0-5) Calcium Oxalate Cr ystal /hpf Amorphous Sediment Urine Bacteria (NONE) Hyaline Casts Urine Mucus 05/10/20 05/10/20 Range/Units 16:55 17:40 WBC (4.0-10.0) 10^3/ uL RBC (4.1-5.3) 10^6/u L Hgb (11.5-15.3) g/dL Hct (37.0-47.0) % MCV (81-99) fL MCH (28.0-34.0) pg MCHC (30.0-36.0) g/dL RDW (12.1-15.1) % Plt Count (130-400) 10^3/c mm MPV (7.4-10.4) fL Neut % (Auto) % Lymph % (Auto) % Elmore % (Auto) % Eos % (Auto) % Baso % (Auto) % Neut # (Auto) (1.8-7.7) 10^3/u L Lymph # (Auto) (0.8-4.8) 10^3/u L Elmore # (Auto) (0.2-0.9) 10^3/u L Eos # (Auto) (0.0-0.8) 10^3/u L Baso # (Auto) (0.0-0.1) 10^3/u L Nucleated RBC % (a uto) % Nucleated RBCs # /100WBC Sodium (136-145) mmol/L Potassium (3.5-5.1) mmol/L Chloride (98-107) mmol/L Carbon Dioxide (22-29) mmol/L Anion Gap (5-19) BUN (8-23) mg/dL Creatinine (0.5-0.9) mg/dL GFR Calculation (90-130) mL/min Glucose (65-115) mg/dL POC Glucose 109 (70-110) mg/dL Calculated Osmolal ity (285-295) mOsm/k g Lactate (0.5-2.2) mmol/L Calcium (8.5-10.5) mg/dL Total Bilirubin (0.15-1.2) mg/dL AST (0-32) U/L ALT (0-33) U/L Alkaline Phosphata se (35-105) IU/L Total Protein (6.6-8.7) g/dL Albumin (3.5-5.2) g/dL Globulin (1.3-4.6) g/dL Lipase (13-60) U/L Urine Color Maday (Yellow) Urine Appearance Clear (CLEAR) Urine pH 5 (5-7) Ur Specific Gravit y 1.005 (1.005-1.030) Urine Protein 1+ H (Negative) Urine Glucose (UA) Norm (Normal) Urine Ketones 1+ H (Negative) Urine Blood Neg (Negative) Urine Nitrate Negative (Negative) Urine Bilirubin 1+ H (NEGATIVE) Urine Urobilinogen 4 H (Negative) mg/dL Ur Leukocyte Clara ase Trace H (Negative) Urine RBC 0-4 H (0-2) /hpf Urine WBC 5-10 H (0-5) /hpf Ur Squamous Epith Cells 5-10 H (0-5) Calcium Oxalate Cr ystal 15-25 H /hpf Amorphous Sediment Trace Urine Bacteria Trace (NONE) Hyaline Casts 0-4 H Urine Mucus 1+ Imaging Data ^: CXR: Radiologist's impression: [address] [address] [address] Scan Report Signed Patient: Dang Zuniga Unit #: [id number] : 1960 Age/Sex: 59 / F ADM Date: 05/10/20 Loc: ER Room/Bed: Attending Dr: Ordering Provider/Ordering MD: Monika Lopez MD Date of Service: 05/10/20 Procedure(s): CT abdomen pelvis w con* [id number] Accession Number(s): [id number] Report Number: [id number] PROCEDURE INFORMATION: Exam: CT Abdomen And Pelvis With Contrast Exam date and time: 05/10/2020 4:52 PM Age: 59 years old Clinical indication: Abdominal pain; Localized; Right lower quadrant (rlq); Prior surgery; Surgery date: 6+ months; Surgery type: Gb, hyst, hip; Patient HX: C/O rlq pain nausea weakness and diarrhea today; Additional info: Abd pain TECHNIQUE: Imaging protocol: Computed tomography of the abdomen and pelvis with intravenous contrast. Radiation optimization: All CT scans at this facility use at least one of these dose optimization techniques: automated exposure control; mA and/or kV adjustment per patient size (includes targeted exams where dose is matched to clinical indication); or iterative reconstruction. Contrast material: VISI 320; Contrast volume: 95 ml; Contrast route: INTRAVENOUS (IV); COMPARISON: CT abdomen pelvis w con* [id number] 04/07/2020 5:52 PM RADIATION DOSE METRICS: Total DLP (mGy-cm): 1031.12 FINDINGS: Mediastinal space: Large paraesophageal hernia with organo-axial volvulus. Liver: Normal. No mass. Gallbladder and bile ducts: The gallbladder has been removed. Pancreas: Normal. No ductal dilation. Spleen: Normal. No splenomegaly. Adrenals: Normal. No mass. Kidneys and ureters: There is a sub cm right renal cyst with benign features. No follow-up is necessary. Stomach and bowel: There is mucosal thickening of the distal transverse, descending, and rectosigmoid colon with associated mesenteric inflammatory stranding. Fluid is present in the proximal colon. Appendix: A normal appendix is identified. Intraperitoneal space: Unremarkable. No free air. No significant fluid collection. Vasculature: Unremarkable. No abdominal aortic aneurysm. Lymph nodes: Unremarkable. No enlarged lymph nodes. Bladder: Unremarkable as visualized. Reproductive: The uterus is not visualized, consistent with hysterectomy. Bones/joints: There is a right total hip replacement. There are degenerative changes in the visualized spine most severe across the L4-L5 level where a broad-based disc osteophyte complex contributes to bilateral neural foraminal narrowing. Soft tissues: Tiny fat containing umbilical hernia. CT/CT abdomen pelvis w con* [id number] IMPRESSION: 1. There is mucosal thickening of the distal transverse, descending, and rectosigmoid colon with associated mesenteric inflammatory stranding. Fluid is present in the proximal colon. Findings are consistent with a nonspecific colitis. 2. Large paraesophageal hernia with organo-axial volvulus. COMMENTS: Consistent with the [employer]'s Incidental Findings Committee white paper (J Am Alfonso Radiol 2018): Any incidental renal lesion less than 1.0 cm or classified as too small to characterize, or any incidental cystic renal lesion characterized as simple-appearing, is likely benign. No follow-up imaging is recommended for these lesions per consensus recommendations based on imaging criteria. CT Abd/Pel: Radiologist's impression: [place] [address] CT Scan Report Signed Patient: Dang Zuniga Unit #: [id number] : 1960 Age/Sex: 59 / F ADM Date: 05/10/20 Loc: ER Room/Bed: Attending Dr: Ordering Provider/Ordering MD: Monika Lopez MD Date of Service: 05/10/20 Procedure(s): CT abdomen pelvis w con* [id number] Accession Number(s): [id number] Report Number: [id number] PROCEDURE INFORMATION: Exam: CT Abdomen And Pelvis With Contrast Exam date and time: 05/10/2020 4:52 PM Age: 59 years old Clinical indication: Abdominal pain; Localized; Right lower quadrant (rlq); Prior surgery; Surgery date: 6+ months; Surgery type: Gb, hyst, hip; Patient HX: C/O rlq pain nausea weakness and diarrhea today; Additional info: Abd pain TECHNIQUE: Imaging protocol: Computed tomography of the abdomen and pelvis with intravenous contrast. Radiation optimization: All CT scans at this facility use at least one of these dose optimization techniques: automated exposure control; mA and/or kV adjustment per patient size (includes targeted exams where dose is matched to clinical indication); or iterative reconstruction. Contrast material: VISI 320; Contrast volume: 95 ml; Contrast route: INTRAVENOUS (IV); COMPARISON: CT abdomen pelvis w con* [id number] 04/07/2020 5:52 PM RADIATION DOSE METRICS: Total DLP (mGy-cm): 1031.12 FINDINGS: Mediastinal space: Large paraesophageal hernia with organo-axial volvulus. Liver: Normal. No mass. Gallbladder and bile ducts: The gallbladder has been removed. Pancreas: Normal. No ductal dilation. Spleen: Normal. No splenomegaly. Adrenals: Normal. No mass. Kidneys and ureters: There is a sub cm right renal cyst with benign features. No follow-up is necessary. Stomach and bowel: There is mucosal thickening of the distal transverse, descending, and rectosigmoid colon with associated mesenteric inflammatory stranding. Fluid is present in the proximal colon. Appendix: A normal appendix is identified. Intraperitoneal space: Unremarkable. No free air. No significant fluid collection. Vasculature: Unremarkable. No abdominal aortic aneurysm. Lymph nodes: Unremarkable. No enlarged lymph nodes. Bladder: Unremarkable as visualized. Reproductive: The uterus is not visualized, consistent with hysterectomy. Bones/joints: There is a right total hip replacement. There are degenerative changes in the visualized spine most severe across the L4-L5 level where a broad-based disc osteophyte complex contributes to bilateral neural foraminal narrowing. Soft tissues: Tiny fat containing umbilical hernia. CT/CT abdomen pelvis w con* [id number] IMPRESSION: 1. There is mucosal thickening of the distal transverse, descending, and rectosigmoid colon with associated mesenteric inflammatory stranding. Fluid is present in the proximal colon. Findings are consistent with a nonspecific colitis. 2. Large paraesophageal hernia with organo-axial volvulus. COMMENTS: Consistent with the [employer]'s Incidental Findings Committee white paper (J Am Alfonso Radiol 2018): Any incidental renal lesion less than 1.0 cm or classified as too small to characterize, or any incidental cystic renal lesion characterized as simple-appearing, is likely benign. No follow-up imaging is recommended for these lesions per consensus recommendations based on imaging criteria. Discharge Plan Discharge Patient Disposition: Admitted As Inpatient Clinical Impression: Colitis Condition: Stable Referrals: Aviva Gomez DO [Primary Care Provider] - Coding Level of Care Code ED Site Safety Coordinator for Chg Fwd Exam Comprehensive
[2020-05-10 16:42] LABS: Basophils # 0.1 10^3/uL (0.0-0.1); Basophils % 0.3 %; Eosinophils % 0.1 %; Hematocrit 38.1 % (37.0-47.0); Hemoglobin 11.8 g/dL (11.5-15.3); Lymphocytes # 1.1 10^3/uL (0.8-4.8); Lymphocytes % 4.9 %; Mean Corpuscular Hemoglobin 27.8 pg (28.0-34.0); Mean Corpuscular Volume 89.9 fL (81-99); Mean Platelet Volume 10.3 fL (7.4-10.4); Monocytes # 1.6 10^3/uL (0.2-0.9); Monocytes % 7.5 %; Neutrophils # 18.85 10^3/uL (1.8-7.7); Neutrophils % 86.6 %; Nucleated Red Blood Cells % 0 %; Platelet Count 364 10^3/cmm (130-400); Red Blood Count 4.24 10^6/uL (4.1-5.3); Red Cell Distribution Width 14.7 % (12.1-15.1); White Blood Count 21.7 10^3/uL (4.0-10.0)
[2020-05-10 16:58] LABS: Alanine Aminotransferase 14 U/L (0-33); Albumin Level 4.2 g/dL (3.5-5.2); Alkaline Phosphatase 62 IU/L (35-105); Anion Gap 15.7 (5-19); Aspartate Amino Transferase 21 U/L (0-32); Blood Urea Nitrogen 15 mg/dL (8-23); Calcium 9.6 mg/dL (8.5-10.5); Carbon Dioxide 22 mmol/L (22-29); Chloride 104 mmol/L (98-107); Globulin 2.6 g/dL (1.3-4.6); Glomerular Filtration Rate 38.4 mL/min (90-130); Glucose 118 mg/dL (65-115); Lipase 19 U/L (13-60); Osmolality Calculated 281 mOsm/kg (285-295); Potassium 4.7 mmol/L (3.5-5.1); Sodium 137 mmol/L (136-145); Total Bilirubin 0.2 mg/dL (0.15-1.2); Total Protein 6.8 g/dL (6.6-8.7)
[2020-05-10 16:59] LABS: Lactate (Lactic Acid level) 1.5 mmol/L (0.5-2.2)
[2020-05-10 17:00] LABS: Glucose Point of Care 109 mg/dL (70-110)
[2020-05-10] MEDS: iodixanol 320 mg/mL 100mL Btl IV (17:11)
[2020-05-10] MEDS: sodium chloride 0.9% 1,000 ML 999 ML IV (17:27)
[2020-05-10 17:41] VITALS: BP 101/59; PULSE 70; RESP 17; O2SAT 100
[2020-05-10 17:42] VITALS: O2SAT 100
[2020-05-10 18:15] LABS: Bilirubin Urine 1+ (NEGATIVE); Blood Urine Neg (Negative); Glucose Urine UA Norm (Normal); Ketones Urine 1+ (Negative); Nitrate Urine Negative (Negative); Protein Urine 1+ (Negative); Specific Gravity, Urine 1.005 (1.005-1.030); Urine Appearance Clear (CLEAR); Urine Color Amber (Yellow); pH Urine 5 (5-7)
[2020-05-10 18:16] LABS: Add Urine Microscopic? YES; Leukocyte Esterase Urine Trace (Negative); Urobilinogen Urine 4 mg/dL (Negative)
[2020-05-10 18:22] LABS: Bacteria Urine TRACE; Mucus Urine 1+; RBC Urine 0-4 /hpf (0-2)
[2020-05-10 18:23] LABS: Add Urine Culture? No; Amorphous Sediment Urine TRACE; Calcium Oxalate Crystals Urine 15-25 /hpf; Hyaline Casts Urine 0-4
--- NOTE | 2020-05-10 19:00 | P.HP_ITS ---
Providers/Chief Complaint Admitting Physician: Sola Carter MD Primary Care Provider: Aviva Gomez DO Chief Complaint: Abdominal cramping, nausea, diarrhea History of Present Illness Dang Zuniga is a 59 year old female with PMHx noted below presents via ambulance for evaluation of acute onset abdominal cramping, nausea, bloating, diarrhea, and chills that started earlier today. As the day progressed she felt worse at which point her called for an ambulance to bring her to the hospital for further evaluation. Per report received on arrival fitness plan coordinator found her to be hypotensive with systolic blood pressure in the 80s. She received an 800 mL bolus of normal saline en route to the hospital with some improvement noted in her blood pressure. She is very pleasant and able to provide her own history during my encounter in the ER. She reports feeling somewhat better following IV fluid hydration though still quite tender particularly in her lower abdomen. She has been following up with Dr. Newberry due to large paraesophageal hernia pending possible surgical intervention and has been following up with Dr. Ashton due to history of recurrent UTIs with cefuroxime prescribed to be taken as needed based on her symptoms. She states that she has not had to initiate antibiotic treatment as she has been asymptomatic. Prior to the onset of her symptoms earlier today she was otherwise in her usual state of health, reports being quite active and independent. She lives at home with her who has not had similar symptoms, they have not had any food or drink that has not been prepared at home. She denies any recent travel, sick contacts. Her most recent blood pressure is 101/59; she is afebrile, heart rate is within normal limits and she is saturating 100% with 2 L NC. Labs indicate significant leukocytosis with neutrophilic predominance with a white count of 21.7, hemoglobin of 11.8, normal electrolytes, BUN of 15, creatinine of 1.4, lactic acid of 1.5, normal LFTs, blood glucose of 118, appears of 19, urinalysis that is positive for trace leukocyte esterase, some pyuria and trace bacteria. Chest x-ray confirms large paraesophageal hernia and CT of the abdomen and pelvis shows findings indicative of colitis. She is in the process of receiving additional IV fluid hydration and her first doses of ciprofloxacin and Flagyl. Due to hypotension, noted leukocytosis and overall symptoms she will require further IV fluid hydration and IV antibiotics hence need for hospital admission. Review of Systems Const: Reports: chills, change in appetite (decreased appetite) and malaise; Denies: fever(s) Eyes: Denies: change in vision ENMT: Reports: dry mouth; Denies: odynophagia Card: Denies: chest pain, swelling of feet/ankles or lightheadedness Resp: Denies: dyspnea, productive cough or non-productive cough GI: Reports: abdominal pain, nausea, diarrhea, bloating, GI cramping and excessive flatus; Denies: vomiting, hematemesis or hematochezia : Denies: difficulty voiding, dysuria, urinary frequency or hematuria Musc: Denies: back pain Skin/Breast: Denies: rash Neuro: Denies: numbness in extremities or weakness in extremities Psych: Denies: anxiety Medications/Allergies Home Medications Medication Instructions Recorded Confirmed Last Taken Type aspirin 81 mg tablet,delayed 81 mg PO DAILY 11/05/19 05/10/20 05/10/20 History release cyclobenzaprine 10 mg tablet 10 mg PO TID #90 tab 11/05/19 05/10/20 05/09/20 Rx polyethylene glycol 3350 17 gram 17 gm PO EVERY OTHER DAY each 11/05/19 05/10/20 05/10/20 History oral powder packet multivitamin 1 tab PO DAILY 11/15/19 05/10/20 05/09/20 History Azo Urinary Tab 2 tab PO DAILY 01/29/20 05/10/20 05/09/20 History Black Elderberry 2 tab PO DAILY 01/29/20 05/10/20 05/09/20 History ondansetron HCl 4 mg tablet 4 mg PO Q6H PRN #20 tab 04/16/20 05/10/20 05/10/20 Rx pantoprazole 40 mg tablet,delayed 40 mg PO BID #180 tab 04/16/20 05/10/20 05/10/20 Rx release duloxetine 60 mg capsule,delayed 60 mg PO DAILY #90 cap 04/20/20 05/10/20 05/10/20 Rx release levothyroxine 112 mcg capsule 112 mcg PO DAILY #90 cap 04/20/20 05/10/20 05/10/20 Rx lovastatin 20 mg tablet 20 mg PO DAILY #90 tab 04/20/20 05/10/20 05/09/20 Rx oxybutynin chloride 5 mg tablet 5 mg PO BID #180 tab 04/20/20 05/10/20 05/10/20 Rx cefuroxime axetil 500 mg tablet 500 mg PO BID #28 tab 04/29/20 05/10/20 Unknown Rx acetaminophen [Tylenol] 325 mg PO PRN 05/10/20 05/10/20 05/09/20 History lisinopril 5 mg PO DAILY 05/10/20 05/10/20 05/09/20 History Allergies Allergy/AdvReac Type Severity Reaction Status Date / Time No Known Allergies Allergy Verified 05/10/20 16:56 PFSH Acute PFSH: Medical History (Updated 05/10/20 @ 19:18 by Sola Carter MD) Abdominal pain Bilateral pulmonary embolism Diagnosed in 06/20 - Anticoag. for 3-6 months. Dyslipidemia Dysuria Essential hypertension Fibromyalgia GERD (gastroesophageal reflux disease) Hot flashes due to menopause Hypothyroid Osteoarthritis Paraesophageal hernia Surgical History H/O colonoscopy 12/13/19: NORMAL, repeat in 10 years H/O: hysterectomy History of hip surgery History of tonsillectomy Status post laparoscopic cholecystectomy Family History Father Diverticulitis Unknown Cancer thyroid, lung, breast, Denies family history of Anesthesia complication Bleeding disorder Social History Smoking and tobacco status: never smoked Alcohol intake: current Alcohol type: wine Household members: spouse Marital status: Current occupational status: retired History of recent travel: No Vitals/I&O/Wt Last Vital Signs Temp 98.3 F 05/10/20 16:33 Pulse 70 05/10/20 17:41 Resp 17 05/10/20 17:41 BP 101/59 05/10/20 17:41 Pulse Ox 100 05/10/20 17:42 Weight last 48 hrs Weight 86.183 kg Physical Exam Const: COMMON NORMALS: no acute distress, patient oriented x3 and alert GENERAL APPEARANCE: cooperative and comfortable; not ill appearing NUTRITIONAL APPEARANCE: obese ORIENTATION/CONSCIOUSNESS: Yes awake OTHER: -very pleasant, looks appropriate for age HENMT: COMMON NORMALS: normocephalic, atraumatic and hearing grossly normal bilaterally HEAD & SCALP: normocephalic and atraumatic MOUTH: moist mucous membranes abnormal Details: parched Eye: COMMON NORMALS: Equal, round and reactive pupils present, EOMs intact bilaterally and conjunctivae normal CONJUNCTIVA: Yes conjunctivae normal PUPIL: Yes Equal, round and reactive pupils present Neck/C-Spine: COMMON NORMALS: full ROM GENERAL: Yes normal visual inspection and Yes trachea midline Resp: COMMON NORMALS: normal respiratory effort, No retractions, No use of accessory muscles and clear to auscultation bilaterally EFFORT & INSPECTION: Yes able to speak in complete sentences, Yes symmetric chest movement and No tachypneic AUSCULTATION: clear to auscultation bilaterally Cardio: COMMON NORMALS: regular rate, regular rhythm, S1 normal heart sound present, S2 normal heart sound present and No murmurs present (Cardio) RATE: regular rate RHYTHM: regular rhythm HEART SOUNDS: S1 normal heart sound present and S2 normal heart sound present GI: COMMON NORMALS: Normal to inspection, nondistended, normoactive bowel sounds present and Soft to palpation INSPECTION: Yes central obesity PALPATION: Yes Soft to palpation, Yes Tenderness to palpation present (GI) Details: LLQ and RLQ, No Guarding due to palpation present (GI) and No Rigid due to palpation Extremity: COMMON NORMALS: normal to inspection, full ROM and no clubbing, cyanosis or edema; negative for no pedal edema Neuro: COMMON NORMALS: patient oriented x3, moves all extremities, no focal motor deficits and no sensory deficits noted Psych: COMMON NORMALS: mental status grossly normal, Normal thought process present, cooperative, normal affect and speech normal SPEECH: Yes normal speech THOUGHT PROCESS: Normal thought process present Skin: COMMON NORMALS: no rashes or lesions noted, no jaundice, no petechiae and no mottling GENERAL SKIN EXAM: no rashes or lesions noted Data : 05/10/20 16:35 05/10/20 16:35 A&P Assessment and plan (1) Colitis: -presented with abdominal cramping, bloating, diarrhea, chills, nausea with noted mucosal thickening of the distal transverse, descending and rectosigmoid colon with associated mesenteric inflammatory stranding on imaging, fluid present in proximal colon, consistent with colitis -Noted leukocytosis with neutrophilic predominance, trend WBC -Closely monitor vital signs as was hypotensive; improved with IV fluid hydration so we will continue this particularly as she appears somewhat clinica lly dehydrated -Afebrile currently, lactic acid of 1.5 -Currently receiving her first doses of ciprofloxacin and metronidazole, continue these antibiotics -Stool studies ordered including C. difficile -Pain control, antiemetics as needed -Order blood cultures Status: Acute (2) Recurrent UTI: -Urinalysis with noted trace leukocyte esterase, pyuria, trace bacteria -Antibiotic regimen outlined above would cover for UTI as well -is on as needed antibiotics which she has not needed to initiated as she has been asymptomatic -f/u with Dr. Ashton Status: Chronic (3) GERD (gastroesophageal reflux disease): -Resume PPI Status: Chronic Qualifiers: Esophagitis presence: esophagitis presence not specified Qualified Code(s): K21.9 - Gastro-esophageal reflux disease without esophagitis (4) Essential hypertension: -Hypotensive in the field, blood pressure improved with IV fluid hydration, continue IVF -Close monitoring of vital signs -Hold oral antihypertensives for now Status: Chronic (5) Hypothyroid: -recent TSH wnl -resume levothyroxine Status: Chronic Qualifiers: Hypothyroidism type: acquired Qualified Code(s): E03.9 - Hypothyroidism, unspecified (6) Dyslipidemia: -lipid panel done recently -resume statin Status: Chronic (7) Paraesophageal hernia: -Noted on previous imaging -Has been following up with Dr. Pires with plan for possible surgical inte rvention Status: Chronic Additional A&P Information -Morbid obesity: BMI-34 kg/m2 -hold bowel regimen -regular diet as tolerated starting tomorrow AM if improving -GI ppx with PPI -DVT ppx with Lovenox -up with assist for now due to concern for hypotension -Dispo: home -Code status: FULL code Attestations Medical Necessity Statement*: Dang Zuniga's hospital stay will require greater than 2 midnights for management of symptomatic colitis with associated dehydration requiring IVF hydration and IV antibiotics. Time Spent in Patient Care: Greater than 35 minutes (>than 50% of time spent in counselling and/or direct pt care on unit) . Coding Level of Care Code Acute Rehabilitation Specialist for Chg Fwd Diagnoses Colitis K52.9 Recurrent UTI N39.0 GERD (gastroesophageal reflux disease) K21.9 Esophagitis presence: esophagitis presence not specified Essential hypertension I10 Hypothyroid E03.9 Hypothyroidism type: acquired Dyslipidemia E78.5 Paraesophageal hernia K44.9
[2020-05-10] MEDS: ciprofloxacin 400 MG/200 ML PREMIX 200 MG IV (19:08)
[2020-05-10] MEDS: metroNIDAZOLE IV 500 MG/100 ML PREMIX 100 MG IV (19:09)
[2020-05-10 19:19] VITALS: BP 101/60; PULSE 72; RESP 18; O2SAT 99
[2020-05-10] MEDS: sodium chlor 0.9% + KCl 20 mEq 20 MEQ/1,000 ML BAG 100 MEQ IV (19:59)
[2020-05-10 20:00] VITALS: BP 102/66; PULSE 61; RESP 18; TEMP 36.6; O2SAT 91
[2020-05-10] MEDS: enoxaparin 40 mg/0.4 mL Syringe SUBCUT (20:00)
[2020-05-10] MEDS: cyclobenzaprine 10 mg Tablet PO (21:50)
[2020-05-11] VITALS: BP 102/62; PULSE 71; RESP 17; TEMP 36.8; O2SAT 94
[2020-05-11 04:00] VITALS: BP 112/70; PULSE 71; RESP 18; TEMP 37.2; O2SAT 99
[2020-05-11 05:42] VITALS: BMI 33.6
[2020-05-11 05:55] LABS: Basophils % 0.5 %; Eosinophils # 0.1 10^3/uL (0.0-0.8); Eosinophils % 1.2 %; Hematocrit 33.4 % (37.0-47.0); Hemoglobin 10.3 g/dL (11.5-15.3); Lymphocytes # 2.3 10^3/uL (0.8-4.8); Lymphocytes % 27.8 %; Mean Corpuscular HGB Conc 30.8 g/dL (30.0-36.0); Mean Corpuscular Hemoglobin 27.5 pg (28.0-34.0); Mean Corpuscular Volume 89.1 fL (81-99); Mean Platelet Volume 10.8 fL (7.4-10.4); Monocytes # 0.8 10^3/uL (0.2-0.9); Monocytes % 9.3 %; Neutrophils # 5.02 10^3/uL (1.8-7.7); Nucleated Red Blood Cells % 0 %; Platelet Count 307 10^3/cmm (130-400); Red Blood Count 3.75 10^6/uL (4.1-5.3); Red Cell Distribution Width 14.6 % (12.1-15.1); White Blood Count 8.2 10^3/uL (4.0-10.0)
[2020-05-11 06:17] LABS: Anion Gap 10.4 (5-19); Blood Urea Nitrogen 10 mg/dL (8-23); Calcium 8.7 mg/dL (8.5-10.5); Carbon Dioxide 22 mmol/L (22-29); Chloride 111 mmol/L (98-107); Glomerular Filtration Rate 73.2 mL/min (90-130); Glucose 92 mg/dL (65-115); Osmolality Calculated 284 mOsm/kg (285-295); Potassium 4.4 mmol/L (3.5-5.1); Sodium 139 mmol/L (136-145)
[2020-05-11 08:00] VITALS: BP 100/66; PULSE 69; RESP 18; TEMP 37.1; O2SAT 98
[2020-05-11] MEDS: pantoprazole DR 40 mg Tablet PO (09:21)
[2020-05-11] MEDS: levothyroxine 112 mcg Tablet PO (09:21)
[2020-05-11] MEDS: atorvastatin 40 mg Tablet 20 MG PO (09:21)
[2020-05-11] MEDS: multivitamin therapeutic Tablet 1 TAB PO (09:21)
[2020-05-11] MEDS: aspirin 81 mg EC Tablet PO (09:21)
[2020-05-11] MEDS: cyclobenzaprine 10 mg Tablet PO ×2 (09:22→14:50)
[2020-05-11] MEDS: oxybutynin 5 mg Tablet PO (09:23)
[2020-05-11] MEDS: duloxetine 60 mg Capsule PO (09:23)
[2020-05-11] MEDS: metroNIDAZOLE IV 500 MG/100 ML PREMIX 100 MG IV (09:54)
[2020-05-11] MEDS: sodium chlor 0.9% + KCl 20 mEq 20 MEQ/1,000 ML BAG 100 MEQ IV (09:56)
[2020-05-11] MEDS: ciprofloxacin 400 MG/200 ML PREMIX 200 MG IV (11:40)
[2020-05-11 11:45] VITALS: BP 128/72; PULSE 77; RESP 18; TEMP 36.6; O2SAT 95
--- NOTE | 2020-05-11 15:36 | P.DS_ITS ---
Discharge Providers Date of Admission: 05/10/20 18:30 Date of Discharge: May 11, 2020 Attending Provider at Admission: Sola Carter MD Attending Provider at Discharge: Sola Carter MD Primary Care Provider: Aviva Gomez DO Diagnoses at Discharge Discharge Diagnosis (1) Colitis: Status: Acute Problem details: -presented with abdominal cramping, bloating, diarrhea, chills, nausea with noted mucosal thickening of the distal transverse, descending and rectosigmoid colon with associated mesenteric inflammatory stranding on imaging, fluid present in proximal colon, consistent with colitis -Noted leukocytosis with neutrophilic predominance, now resolved -vital signs stable, has been on IV fluid hydration -Afebrile currently, lactic acid of 1.5 -On ciprofloxacin and metronidazole -Stool studies ordered including C. difficile though no sample sent as no BMs -Pain control, antiemetics as needed -blood cultures pending (2) Recurrent UTI: Status: Chronic Problem details: -Urinalysis with noted trace leukocyte esterase, pyuria, trace bacteria -Antibiotic regimen outlined above would cover for UTI as well -is on as needed antibiotics which she has not needed to initiated as she has been asymptomatic -f/u with Dr. Ashton (3) GERD (gastroesophageal reflux disease): Status: Chronic Problem details: -on PPI Qualifiers: Esophagitis presence: esophagitis presence not specified Qualified Code(s): K21.9 - Gastro-esophageal reflux disease without esophagitis (4) Essential hypertension: Status: Chronic Problem details: -Hypotensive initially, improved with IVF -can resume oral antihypertensives (5) Hypothyroid: Status: Chronic Problem details: -recent TSH wnl -on levothyroxine Qualifiers: Hypothyroidism type: acquired Qualified Code(s): E03.9 - Hypothyroidism, unspecified (6) Dyslipidemia: Status: Chronic Problem details: -lipid panel done recently -on statin (7) Paraesophageal hernia: Status: Chronic Problem details: -Noted on previous imaging -Has been following up with Dr. Pires with plan for possible surgical intervention Other Information Additional DC diagnoses/information: -Morbid obesity: BMI-34 kg/m2 Reason for Visit Reason for Visit: Abdominal cramping, nausea, diarrhea Hospital Course Hospital Course: Patient was admitted to the medical surgical floor and continued on IV fluid hydration and IV antibiotics secondary to acute symptomatic colitis. Initial impression based on patient's symptoms, leukocytosis, imaging findings was that she would require a longer hospital stay. Fortunately with the aforementioned treatment she improved much faster than expected with noted resolution of her symptoms, ability to tolerate oral intake without difficulty, resolved leukocytosis, normalization of renal function and feels well enough to go home today with continued oral antibiotic therapy to complete her treatment course. Discussed need for probiotics given acute infection and need for continued antibiotic therapy, in addition to need for continued appropriate oral hydration. Counseled on need to seek medical attention immediately should her symptoms recur or worsen. She will need to continue to follow-up with Dr. Pires and Dr. Ashton in addition to her primary care physician. Discharge Summary: -Patient to follow-up with her primary care physician within 1 week -Patient to continue to follow-up with Dr. Pires and Dr. Ashton Physical Exam Const: COMMON NORMALS: no acute distress, patient oriented x3 and alert GENERAL APPEARANCE: cooperative and comfortable; not ill appearing NUTRITIONAL APPEARANCE: obese ORIENTATION/CONSCIOUSNESS: Yes awake OTHER: -very pleasant, looks appropriate for age HENMT: COMMON NORMALS: normocephalic, atraumatic and hearing grossly normal bilaterally HEAD & SCALP: normocephalic and atraumatic MOUTH: moist mucous membranes abnormal Details: parched Eye: COMMON NORMALS: Equal, round and reactive pupils present, EOMs intact bilaterally and conjunctivae normal CONJUNCTIVA: Yes conjunctivae normal PUPIL: Yes Equal, round and reactive pupils present Neck/C-Spine: COMMON NORMALS: full ROM GENERAL: Yes normal visual inspection and Yes trachea midline Resp: COMMON NORMALS: normal respiratory effort, No retractions, No use of accessory muscles and clear to auscultation bilaterally EFFORT & INSPECTION: Yes able to speak in complete sentences, Yes symmetric chest movement and No tachypneic AUSCULTATION: clear to auscultation bilaterally Cardio: COMMON NORMALS: regular rate, regular rhythm, S1 normal heart sound present, S2 normal heart sound present and No murmurs present (Cardio) RATE: regular rate RHYTHM: regular rhythm HEART SOUNDS: S1 normal heart sound present and S2 normal heart sound present GI: COMMON NORMALS: Normal to inspection, nondistended, normoactive bowel sounds present and Soft to palpation INSPECTION: Yes central obesity PALPATION: Yes Soft to palpation, Yes Tenderness to palpation present (GI), No Guarding due to palpation present (GI) and No Rigid due to palpation Extremity: COMMON NORMALS: normal to inspection, full ROM and no clubbing, cyanosis or edema; negative for no pedal edema Neuro: COMMON NORMALS: patient oriented x3, moves all extremities, no focal motor deficits and no sensory deficits noted SENSORIUM/ORIENTATION: Yes alert Psych: COMMON NORMALS: mental status grossly normal, Normal thought process present, cooperative, normal affect and speech normal SPEECH: Yes normal speech THOUGHT PROCESS: Normal thought process present Skin: COMMON NORMALS: no rashes or lesions noted, no jaundice, no petechiae and no mottling GENERAL SKIN EXAM: no rashes or lesions noted Discharge Data Data Completed and Pending: Completed Studies During Hospitalization Category Date Time Status CT abdomen pelvis w con* [id number] Urge nt Cat Scan 05/10/20 16:28 Completed XR chest 1V emmanuelle ble [id number] Stat Exams 05/10/20 16:28 Completed Pending at discharge Category Date Time Status Blood Culture Sta t Lab 05/10/20 19:50 Results Clostridioides Di fficile PCR Routin e Lab 05/10/20 18:24 Uncollected Complete Blood Co unt w/Auto AM LABS Lab 05/12/20 04:00 Ordered Complete Blood Co unt w/Auto AM LABS Lab 05/13/20 04:00 Ordered Enteric Bacterial Panel by PCR Rout ine Lab 05/10/20 18:24 Uncollected Labs from last 24 hours 05/11/20 05/11/20 05/10/20 05:20 05:20 17:40 WBC 8.2 RBC 3.75 L Hgb 10.3 L Hct 33.4 L MCV 89.1 MCH 27.5 L MCHC 30.8 RDW 14.6 Plt Count 307 MPV 10.8 H Neut % (Auto) 61.0 Lymph % (Auto) 27.8 [place] % (Auto) 9.3 Eos % (Auto) 1.2 Baso % (Auto) 0.5 Neut # (Auto) 5.02 Lymph # (Auto) 2.3 [place] # (Auto) 0.8 Eos # (Auto) 0.1 Baso # (Auto) 0.0 Nucleated RBC % (a uto) 0 Nucleated RBCs # 0.0 Sodium 139 Potassium 4.4 Chloride 111 H Carbon Dioxide 22 Anion Gap 10.4 BUN 10 Creatinine 0.8 GFR Calculation 73.2 L Glucose 92 POC Glucose Calculated Osmolal ity 284 L Lactate Calcium 8.7 Total Bilirubin AST ALT Alkaline Phosphata se Total Protein Albumin Globulin Lipase Urine Color Mad[place] Urine Appearance Clear Urine pH 5 Ur Specific Gravit y 1.005 Urine Protein 1+ H Urine Glucose (UA) Norm Urine Ketones 1+ H Urine Blood Neg Urine Nitrate Negative Urine Bilirubin 1+ H Urine Urobilinogen 4 H Ur Leukocyte [place] a[place] Trace H Urine RBC 0-4 H Urine WBC 5-10 H Ur Squamous Epith Cells 5-10 H Calcium Oxalate Cr ystal 15-25 H Amorphous Sediment Trace Urine Bacteria Trace Hyaline Casts 0-4 H Urine Mucus 1+ 05/10/20 05/10/20 05/10/20 16:55 16:35 16:35 WBC RBC Hgb Hct MCV MCH MCHC RDW Plt Count MPV Neut % (Auto) Lymph % (Auto) [place] % (Auto) Eos % (Auto) Baso % (Auto) Neut # (Auto) Lymph # (Auto) [place] # (Auto) Eos # (Auto) Baso # (Auto) Nucleated RBC % (a uto) Nucleated RBCs # Sodium 137 Potassium 4.7 Chloride 104 Carbon Dioxide 22 Anion Gap 15.7 BUN 15 Creatinine 1.4 H GFR Calculation 38.4 L Glucose 118 H POC Glucose 109 Calculated Osmolal ity 281 L Lactate 1.5 Calcium 9.6 Total Bilirubin 0.2 AST 21 ALT 14 Alkaline Phosphata se 62 Total Protein 6.8 Albumin 4.2 Globulin 2.6 Lipase 19 Urine Color Urine Appearance Urine pH Ur Specific Gravit y Urine Protein Urine Glucose (UA) Urine Ketones Urine Blood Urine Nitrate Urine Bilirubin Urine Urobilinogen Ur Leukocyte Clara ase Urine RBC Urine WBC Ur Squamous Epith Cells Calcium Oxalate Cr ystal Amorphous Sediment Urine Bacteria Hyaline Casts Urine Mucus 05/10/20 16:35 WBC 21.7 H RBC 4.24 Hgb 11.8 Hct 38.1 MCV 89.9 MCH 27.8 L MCHC 31.0 RDW 14.7 Plt Count 364 MPV 10.3 Neut % (Auto) 86.6 Lymph % (Auto) 4.9 [place] % (Auto) 7.5 Eos % (Auto) 0.1 Baso % (Auto) 0.3 Neut # (Auto) 18.85 H Lymph # (Auto) 1.1 [place] # (Auto) 1.6 H Eos # (Auto) 0.0 Baso # (Auto) 0.1 Nucleated RBC % (a uto) 0 Nucleated RBCs # 0.0 Sodium Potassium Chloride Carbon Dioxide Anion Gap BUN Creatinine GFR Calculation Glucose POC Glucose Calculated Osmolal ity Lactate Calcium Total Bilirubin AST ALT Alkaline Phosphata se Total Protein Albumin Globulin Lipase Urine Color Urine Appearance Urine pH Ur Specific Gravit y Urine Protein Urine Glucose (UA) Urine Ketones Urine Blood Urine Nitrate Urine Bilirubin Urine Urobilinogen Ur Leukocyte [place] a[place] Urine RBC Urine WBC Ur Squamous Epith Cells Calcium Oxalate Cr ystal Amorphous Sediment Urine Bacteria Hyaline Casts Urine Mucus Vitals: Last Vital Signs Temp 97.9 F 05/11/20 11:45 Pulse 77 05/11/20 11:45 Resp 18 05/11/20 11:45 BP 128/72 05/11/20 11:45 Pulse Ox 95 05/11/20 11:45 Discharge Plan Discharge Patient Disposition: Home Condition: Stable Prescriptions: New ciprofloxacin HCl 500 mg tablet 500 mg PO BID 7 Days Qty: 14 RF: 0 metronidazole 500 mg tablet 500 mg PO Q8H 7 Days Qty: 21 RF: 0 Continued aspirin 81 mg tablet,delayed release (DR/EC) 81 mg PO DAILY RF: 0 polyethylene glycol 3350 [Miralax] 17 gram powder in packet 17 gm PO EVERY OTHER DAY RF: 0 cyclobenzaprine 10 mg tablet 10 mg PO TID Qty: 90 RF: 2 pantoprazole [Protonix] 40 mg tablet,delayed release (DR/EC) 40 mg PO BID Qty: 180 RF: 1 multivitamin Tablet 1 tab PO DAILY RF: 0 cefuroxime axetil 500 mg tablet 500 mg PO BID Qty: 28 RF: 3 duloxetine [Cymbalta] 60 mg capsule,delayed release(DR/EC) 60 mg PO DAILY Qty: 90 RF: 1 levothyroxine 112 mcg capsule 112 mcg PO DAILY Qty: 90 RF: 0 lovastatin 20 mg tablet 20 mg PO DAILY Qty: 90 RF: 1 oxybutynin chloride 5 mg tablet 5 mg PO BID Qty: 180 RF: 1 Azo Urinary Tab 2 tab PO DAILY RF: 0 Black Elderberry 2 tab PO DAILY RF: 0 ondansetron HCl [Zofran] 4 mg tablet 4 mg PO Q6H PRN (Reason: nausea and vomiting) Qty: 20 RF: 0 Tylenol 325 mg Tablet 325 mg PO PRN RF: 0 lisinopril 10 mg tablet 5 mg PO DAILY RF: 0 Discharge Orders: Discharge Order (Routine); Ordered 05/11/20 Ordered By: Sola Carter Referrals: Aviva Gomez DO [Primary Care Provider] - 4-7 days (Post hospital discharge follow up. Treated for acute colitis. ) Discharge Diet: Cardiac Discharge Activity: Increase activity as tolerated Discharge Attestations Time Spent in Discharge Care*: greater than 30 min Status at Discharge: Cognitive status at discharge: cognitively intact , Quality Metrics Clinical Quality Measures During this hospital stay, did patient experience: None Coding Level of Care Code Acute Slat Basket Maker Machine for Chg Fwd Diagnoses Colitis K52.9 Recurrent UTI N39.0 GERD (gastroesophageal reflux disease) K21.9 Esophagitis presence: esophagitis presence not specified Essential hypertension I10 Hypothyroid E03.9 Hypothyroidism type: acquired Dyslipidemia E78.5 Paraesophageal hernia K44.9
[2020-05-11 17:03] VITALS: BP 128/72; PULSE 77; RESP 18; TEMP 36.6; O2SAT 95
== END 2020-05-11 17:05 | disposition home or self-care (01) | DRG 392 ==
LOC: ER 18:31 → MEDSURG 18:48
PROVIDERS: Emergency Medicine; Admitting Provider Family Medicine; PCP Family Medicine; Visit Provider Family Medicine
DX: K52.9 Noninfective gastroenteritis and colitis, unspecified (principal); N39.0 Urinary tract infection, site not specified; I95.9 Hypotension, unspecified; K44.9 Diaphragmatic hernia without obstruction or gangrene; K21.9 Gastro-esophageal reflux disease without esophagitis; I10 Essential (primary) hypertension; E03.9 Hypothyroidism, unspecified; E78.5 Hyperlipidemia, unspecified; E66.01 Morbid (severe) obesity due to excess calories; Z68.33 Body mass index [BMI] 33.0-33.9, adult; Z79.82 Long term (current) use of aspirin; M79.7 Fibromyalgia; M19.90 Unspecified osteoarthritis, unspecified site
CPT/HCPCS: 12345; 36415; 36416; 71045; 74177; 80048; 80053; 81001; 82962; 83605; 83690; 85025; 87040; 96372; 99283; J0744; J1650; J7030; Q9967; S0030

== ENCOUNTER → 2020-06-18 11:50 | Outpatient (BNVA) | payer MEDICARE, SELFPAY | PROVIDERS: PCP Family Medicine; Visit Provider Surgery | DX: Z11.59 Encounter for screening for other viral diseases (principal) | CPT/HCPCS: 87635 ==

== ENCOUNTER 2020-06-23 15:08 | Observation (INO) | payer MEDICARE, SELFPAY ==
--- NOTE | 2020-06-22 10:44 | P.ANESASSM_ITS ---
Pre-Anesthetic Assessment Pre-Anesthetic Assessment: Height/Weight: Height 1.6 m Weight 83.915 kg Preop Diagnosis: Symptomatic paraesophageal hernia Proposed Procedure: Operation Date: 06/23/20 07:00 Proposed Procedures p Laparoscopic ParaEsophageal Hernia Repair with poss mesh [id number] K44.9(Not Applicable) - Jitendra Newberry MD s Laparoscopic Marta Fundoplication poss open(Not Applicable) - Jitendra Newberry MD s EGD(Not Applicable) - Jitendra Newberry MD Familial anesthetic complications: shallow breathing after being put under Social: Social History: No alcohol Exam: Pre-Anes Outpt Exam: alert, oriented x 3, clear to auscultation bila terally and regular rate & rhythm Airway: Cervical ROM: WNL MP: 2 Dentition: False Pulmonary: Comments: b/l pulmonary embolism after impacted bowel - no longer on blood thinners CV/HEM: CV/HEM: HTN GI: GI: GERD and Hiatus hernia Metabolic: Metabolic: Hyperlipidemia and Thyroid Neuropsych: Neuropsych: None reported Anesthetic Plan: ASA status: 2 Anesthesia: General Risk of > 500 ml blood loss (7ml/kg in children): No PFSH Anesthesia PFSH: Medical History Abdominal pain Bilateral pulmonary embolism Diagnosed in 06/20 - Anticoag. for 3-6 months. Dyslipidemia -lipid panel done recently -on statin Dysuria Essential hypertension Fibromyalgia GERD (gastroesophageal reflux disease) -on PPI Hot flashes due to menopause Hypothyroid -recent TSH wnl -on levothyroxine Osteoarthritis Paraesophageal hernia -Noted on previous imaging -Has been following up with Dr. Pires with plan for possible surgical intervention Recurrent UTI -Urinalysis with noted trace leukocyte esterase, pyuria, trace bacteria -Antibiotic regimen outlined above would cover for UTI as well -is on as needed antibiotics which she has not needed to initiated as she has been asymptomatic -f/u with Dr. Ashton Surgical History H/O colonoscopy 12/13/19: NORMAL, repeat in 10 years H/O: hysterectomy History of hip surgery History of tonsillectomy Status post laparoscopic cholecystectomy Family History Father Diverticulitis Unknown Cancer thyroid, lung, breast, Denies family history of Anesthesia complication Bleeding disorder Social History Smoking and tobacco status: never smoked Alcohol intake: current Alcohol type: wine Household members: spouse Marital status: Current occupational status: retired History of recent travel: No Data Anesthesia Cardiac Studies: No Data to Display
[2020-06-23] VITALS (21 sets, daily range): BP systolic 107–135; BP diastolic 67–88; PULSE 77–90; RESP 14–22; TEMP 36.2–37.3; O2SAT 87–100
[2020-06-23] MEDS: sodium chloride 0.9% 1,000 ML 30 ML IV (07:12)
[2020-06-23] MEDS: heparin 5,000 unit/mL INJ 1 mL 3000 UNIT SUBCUT (07:18)
--- NOTE | 2020-06-23 07:49 | P.ANESUD_ITS ---
Pre-Anesthetic Update Pre-Anesthetic Assessment: Date of Surgery/Procedure: 06/23/20 Preop Briseyda gnosis: Symptomatic paraesophageal hernia Proposed Procedure: Operation Date: 06/23/20 08:15 Proposed Procedures p Laparoscopic ParaEsophageal Hernia Repair with poss mesh [id number] 28488 K44.9(Not Applicable) - Jitendra Newberry MD s Laparoscopic Marta Fundoplication poss open(Not Applicable) - Jitendra Newberry MD s EGD(Not Applicable) - Jitendra Newberry MD Any changes to Pre-Anesthetic Assessment?: No Last Intake: Intake Last Liquid Date 06/22/20 Last Liquid Time 23:00 Last Solid Date 06/09/20 Last Solid Time 00:00 Vitals: Temperature 97.7 F 06/23/20 06:57 Temperature Source Temporal Artery S can 06/23/20 06:57 Pulse Rate 82 06/23/20 06:57 Respiratory Rate 18 06/23/20 06:57 Blood Pressure 107/75 06/23/20 06:57 Blood Pressure Xenia n 85 06/23/20 06:57 Pulse Oximetry 97 06/23/20 06:57 Oxygen Delivery Me thod 06/23/20 06:57 Exam: Pre-Anes Outpt Exam: alert, oriented x 3, clear to auscultation bilaterally and regular rate & rhythm Cardiac Studies: No Data to Display
--- NOTE | 2020-06-23 09:29 | W.PM.OPSUD ---
Surgery/Procedure H&P Update DATE OF PROCEDURE: June 23, 2020 DATE H&P PERFORMED: 06/03/20 H&P UPDATE INFORMATION: I have reviewed H&P completed within last 30 days, I have examined patient prior to procedure and No changes to prior documentation PREOP DIAGNOSIS: Symptomatic paraesophageal hernia PRIMARY INDICATION FOR PROCEDURE: The same PLANNED PROCEDURE: Operation Date: 06/23/20 08:15 Proposed Procedures p Laparoscopic ParaEsophageal Hernia Repair with poss mesh [id number] 51465 K44.9(Not Applicable) - Jitendra Newberry MD s Laparoscopic Marta Fundoplication poss open(Not Applicable) - Jitendra Newberry MD s EGD(Not Applicable) - Jitendra Newberry MD
[2020-06-23] MEDS: lidocaine 2% INJ 20 mL INJECTION (10:50)
--- NOTE | 2020-06-23 10:53 | SUR.OPER ---
Pt's Braden notified of surgery start via his cell phone.
--- NOTE | 2020-06-23 13:15 | SUR.OPER ---
Braden updated on surgery progress and pt status via his cell phone.
--- NOTE | 2020-06-23 15:02 | P.OP_ITS ---
Operative Report Date of procedure: June 23, 2020 Pre-op Diagnosis: Symptomatic paraesophageal hernia Post-op diagnosis: other (The same with volvulus component in the form of organoaxial) Post-op Findings: Application of surgical clips 1 of the traversing branches at the mid esophagus for hemostasis towards the left side and more surgical clips applied towards the lesser curvature of the stomach during dissection. Noticed to have splenomegaly and hepatomegaly Procedure Done: Laparoscopic paraesophageal hernia repair with Marta fundoplication and mesh placement in the form of Bio A. And intraoperative esophagogastroscopy Implants: Bio A mesh Specimens removed/disposition: Hernial sac Surgeon: Jitendra Newberry High Lift Mule Operator: Surgical techEdi Sandhu and Kaley Circulating nurses Dang Mena and Chen Anesthesia: General (David Henriquez, David Mccain and Dr. Ramey) Estimated blood loss (mL): 20 IV fluids (mL): 2,200 Urine output (mL): 300 Condition: stable Disposition: floor Procedure: Patient was identified in holding area,appropriate pharmacologic DVT prophylaxis was given, patient was then taken to the operating room where the patient was placed in supine position, intubated by anesthesia prophylactic antibiotics were given per protocol,Time-out was done verifying the patient's name/date of /planned procedure and destination after the procedure, all were in agreement. SCDs confirmed to be functioning, preoperative antibiotics administered per protocol, and beta alvarez protocol was confirmed patient was placed in a low lithotomy position, both arms were tucked to the sides.and all pressure points were padded,a Vale catheter was placed by the circulating nurse that revealed clear urine. The patient was appropriately secured to the operating table, and I asked anesthesia to swing the table [id number] in different positions that the patient is appropriately secured to the OR table which it was the case. Prep and drape of the abdomen was done under the usual sterile technique, started by 1.2 cm transverse incision with 15 blade knife, 12 cm below the xiphoid and 3 cm to the left of the midline, followed by that a 12 mm optical trocar was used under direct vision and placed in the peritoneal cavity without difficulty.The peritoneal cavity was insufflated with CO2 gas up to 15 mmHg, followed by that an angled scope 10 mm was inserted in the abdominal cavity, the abdomen was surveyed there was no evidence of blood or fluid or other evidence of intra-abdominal injury Following that two 5 mm ports were placed one at 10 cm from the xiphoid process under the left subcostal region and the other one was placed at the left flank. A 12 mm port was placed in the subxiphoid region towards the right upper subcostal region.a 5 mm trocar was inserted 15 cm to the right of the xiphoid process the and liver retractor was placed under direct visualization to lift the liver up for appropriate visualization of the hiatus. Patient was placed in steep reverse T Espino and I stood between the patient's legs. I Started at that point delivering the Hiatal Hernia content mostly the stomach which is about 75% incarcerated in the thoracic cavity, being up in the chest. Started dissecting using the harmonic scalpel near the caudate lobe and right leyda of the diaphragm where it was identified. Dissection was continued around the border of the leyda from the right side to the left side circumferentially, dissection was done as the sac was adherent to the stomach and up in the chest. After appropriate dissection circumferentially and the short gastrics were taken down, patient was noticed to have an enlarged spleen., a [place] drain was passed behind the esophagus from the right side to the left side ends of the [place] was secured in place and was held down to assist in retraction for better navigation.At that point once dissection and reduction of the hernia was complete,the hernia sac was dissected was taken out and sent for pathology for permanent. 5 mm clips were applied towards the left side of the mid esophagus for hemostasis and additional 5 mm clips were applied towards the left curvature of the stomach for hemostasis. There was 3-4 cm of the esophagus now is intra-abdominal after appropriate dissection being with no tension. A well-lubricated bougie was inserted 54 [place] in size, by the anesthesiologist without difficulty, to be used as a template to prevent narrowing of the esophagus. The posterior crura was reapproximated with 2-0 Ethibond sutures with pledgets.This closed the hiatal defect leaving an opening that of the submits the esophagus to pass through comfortably. I decided at this point to apply a Bio A mesh that was fashioned accordingly. And secured with 2-0 silk sutures to the diaphragmatic surface. I found a loose fundus that I was able to grab the stomach around the GE junction from the left side to the right side.Shoeshine technique was applied at this point to make sure that the wrap carries no tension.Faraz drain was taken out and passed to the manometer technician.First stitch was taken stomach esophagus stomach, then following stitches were placed as stomach to stomach using 2-0 Ethibond sutures about 1 cm apart. 360? fundoplication was noted from securing the fundus to either side of the esophagus.The length was about 3-4 cm and followed by that an upper GI scope by me after I scrubbed out was introduced from the mouth down to the esophagus to the stomach preceded by bougie was taken out to make sure that there was no injury damage happened with the bougie, there was no blood on the tip of the bougie as well,nothing of significance, stomach looked fine was no injury and the wrap looked appropriate from within. I scrubbed back in after adequate hemostasis the liver retractor was taken out under direct visualization, final laparoscopic survey was done showing no injuries to intra-abdominal structures, the 12 mm trocar sites were closed by Matt Cain under direct visualization using #1 PDS sutures,following that a TAP Block was done using Exparel then all ports were removed and both 12 mm ports.The rest of the stab incisions were closed by skin william, followed by Band-Aids and patient tolerated the procedure well. Bilateral TAP (transversus abdominous plain peripheral nerve block )block using Exparel 20 mL Exparel 40 ml Normal saline 20 ml bupivacaine 0.25% 30 mL on each side injected 20 mL injected the port sites The count of instruments,needles and sponges was completed at the end of the procedure. Vale catheter was taken out at the end of the procedure without complications
[2020-06-23] MEDS: fentaNYL 50 mcg/mL INJ 2mL IVP ×2 (15:38→15:43)
[2020-06-23] MEDS: ondansetron 2 mg/ML SDV 2 mL 4 MG IVP ×2 (16:00→22:30)
[2020-06-23] MEDS: sodium chloride 0.9% 1,000 ML 100 ML IV (16:43)
[2020-06-23] MEDS: famotidine 20 mg/2 mL INJ IVP (16:43)
[2020-06-23] MEDS: morphine 4 mg/mL SDV 1 mL IVP (22:30)
[2020-06-23] MEDS: heparin 5,000 unit/mL INJ 1 mL 5000 UNIT SUBCUT (23:53)
[2020-06-24] VITALS (10 sets, daily range): BP systolic 98–129; BP diastolic 54–75; PULSE 70–79; RESP 16–18; TEMP 36.8–37.3; O2SAT 93–98
[2020-06-24] MEDS: sodium chloride 0.9% 1,000 ML 100 ML IV ×2 (02:07→13:48)
[2020-06-24] MEDS: morphine 4 mg/mL SDV 1 mL IVP ×3 (02:16→10:09)
[2020-06-24] MEDS: famotidine 20 mg/2 mL INJ IVP ×2 (02:16→15:46)
[2020-06-24 05:45] LABS: Hematocrit 31.6 % (37.0-47.0); Hemoglobin 9.8 g/dL (11.5-15.3)
[2020-06-24 06:17] LABS: Anion Gap 12.5 (5-19); Blood Urea Nitrogen 9 mg/dL (8-23); Calcium 8.4 mg/dL (8.5-10.5); Carbon Dioxide 23 mmol/L (22-29); Chloride 109 mmol/L (98-107); Glomerular Filtration Rate 85.4 mL/min (90-130); Glucose 112 mg/dL (65-115); Osmolality Calculated 291 mOsm/kg (285-295); Potassium 3.5 mmol/L (3.5-5.1); Sodium 141 mmol/L (136-145)
--- NOTE | 2020-06-24 06:31 | PM.PN ---
Subjective Subjective: Interval history: Patient undergone uneventful laparoscopic paraesophageal hernia repair with mesh placement and Marta fundoplication. Pain is under control currently. Good urine output and stable vital signs. Otherwise no acute events overnight and nausea is under control. Vitals/I&O/Wt Last Vital Signs Temp 99.0 F 06/24/20 04:00 Pulse 76 06/24/20 04:00 Resp 18 06/24/20 04:00 BP 113/69 06/24/20 04:00 Pulse Ox 97 06/24/20 04:00 06/23/20 06/23/20 06/24/20 14:59 22:59 06:59 Intake Total 1200 / 1200 500 / 1700 940 / 2640 Output Total 620 / 620 800 / 1420 Balance 1200 / 1200 -120 / 1080 140 / 1220 Weight last 48 hrs Weight 185 lb Physical Exam Narrative: EXAM NARRATIVE: Patient is conscious alert oriented X3 BMI 32.8 Head and neck examination PERRLA no masses no cervical lymphadenopathy no jaundice Cardiac examination audible S1-S2 no murmurs no gallops no arrhythmias Chest is clear bilateral,abscence of Rhonchi or wheezes,mild surgical emphysema Abdomen nontender except mildly at the incision site nondistended soft no organomegaly guarding or rigidity/no signs of peritonitis Extremities no cyanosis no clubbing no edema Urinary Catheter Management^: Vale: Cath Placed During This Visit: yes, but has since been removed by the nurse Reason for Continuing Indwelling Catheter: Decision to DC Catheter Urinary Catheter Date of Insertion: 06/23/20 Urinary Catheter Time of Insertion: 10:30 Date Urinary Catheter Removed: 06/23/20 Time Urinary Catheter Discontinued: 16:30 Data : 06/24/20 05:25 06/24/20 05:25 A&P Assessment and plan (1) S/P repair of paraesophageal hernia: Will follow on upper GI study once this is done and being cleared by radiology we will start the patient on clear liquid diet. No straws, crackers or chewing gums. Encourage ambulation Continue pharmacologic DVT prophylaxis Incentive spirometer every hour Switch to p.o. pain medication Assurance and education All questions have been answered and all concerns have been addressed to patient's satisfaction. Status: Acute Attestations Medical Necessity Statement*: Observation status awaiting patient tolerance to p.o. intake Time Spent in Patient Care: (>than 50% of time spent in counselling and/or direct pt care on unit). Coding Level of Care Code Acute Guest Relations Executive for Chg Fwd Diagnoses S/P repair of paraesophageal hernia Z98.890; Z87.19
--- NOTE | 2020-06-24 06:45 | ANE.PACU2 ---
Inpatient post-anesthesia follow up: Airway intact: Yes Vital signs: Temperature 99.0 F Pulse Rate 76 Respiratory Rate 18 Blood Pressure 113/69 Pulse Oximetry 97 Oxygen Delivery Me thod [ Room Air Current Rate & Del ernie] Oxygen Delivery Me thod Room Air Oxygen Flow Rate 8 Fraction of Inspir ed Oxygen Hydration adequate: Yes Nausea and vomiting: No Pain level: 10 Pain level: patient resting comfortably in bed Mental status: Baseline
[2020-06-24] MEDS: scopolamine 1.5 Patch 1 PATCH TRANSDERMA (07:08)
[2020-06-24] MEDS: heparin 5,000 unit/mL INJ 1 mL 5000 UNIT SUBCUT ×2 (07:11→15:46)
--- NOTE | 2020-06-24 08:00 | FL_ITS ---
WS: [id number] UPPER GI TECHNICAL: Single contrast upper GI with Gastrografin FLUOROSCOPY TIME: 1.4 minutes CLINICAL INFORMATION: Status post laparoscopic paraesophageal hernia repair and Marta fundoplication COMPARISON: None. FINDINGS: Status post laparoscopic paraesophageal hernia repair with Marta fundoplication and mesh p lacement. Normal postoperative changes. Expected delayed emptying in the distal esophagus. No evidenc e of recurrent or residual hernia. No evidence of contrast leak. FL/FL upper GI gastrografin [id number] IMPRESSION: Normal postoperative changes. No evidence of contrast leak.
[2020-06-24] MEDS: diatrizoate meglumine 30 mL Sol PO ×2 (10:03)
--- NOTE | 2020-06-24 11:52 | PM.SDS ---
Short Stay Summary Providers Date of Admit/Discharge: 06/24/20 Attending Provider: Jitendra Newberry MD Primary Care Provider: Aviva Gomez DO Chief Complaint: paraesophageal hernia HPI History of Present Illness Dang Zuniga is a 59 year old female presented originally with symptomatic paraesophageal hernia. Patient was worked up and after thorough history physical examination and reviewing the chart and images with my personal interpretation, patient was counseled for laparoscopic paraesophageal hernia repair with mesh placement possible open and Marta fundoplication. Review of Systems General: Reports: 10 or more systems reviewed and unremarkable except in HPI and below Home Meds/Allergies Home Medications and Allergies Home Medications Medication Instructions Recorded Confirmed Type aspirin 81 mg tablet,delayed 81 mg PO DAILY 11/05/19 06/22/20 History release polyethylene glycol 3350 17 gram 17 gm PO EVERY OTHER DAY each 11/05/19 06/22/20 History oral powder packet multivitamin 1 tab PO DAILY 11/15/19 06/22/20 History Azo Urinary Tab 2 tab PO DAILY 01/29/20 06/22/20 History Black Elderberry 2 tab PO DAILY 01/29/20 06/22/20 History acetaminophen [Tylenol] 325 mg PO PRN 05/10/20 06/22/20 History cefuroxime axetil 500 mg PO BID PRN 06/22/20 06/22/20 History meloxicam 15 mg PO DAILY 06/22/20 06/22/20 History Allergies Allergy/AdvReac Type Severity Reaction Status Date / Time No Known Allergies Allergy Verified 06/24/20 16:51 PFSH Acute PFSH: Medical History Abdominal pain Bilateral pulmonary embolism Diagnosed in 06/20 - Anticoag. for 3-6 months. Dyslipidemia -lipid panel done recently -on statin Dysuria Essential hypertension Fibromyalgia GERD (gastroesophageal reflux disease) -on PPI Hot flashes due to menopause Hypothyroid -recent TSH wnl -on levothyroxine Osteoarthritis Paraesophageal hernia -Noted on previous imaging -Has been following up with Dr. Pires with plan for possible surgical intervention Recurrent UTI -Urinalysis with noted trace leukocyte esterase, pyuria, trace bacteria -Antibiotic regimen outlined above would cover for UTI as well -is on as needed antibiotics which she has not needed to initiated as she has been asymptomatic -f/u with Dr. Ashton Surgical History H/O colonoscopy 12/13/19: NORMAL, repeat in 10 years H/O: hysterectomy History of hip surgery History of tonsillectomy Status post laparoscopic cholecystectomy Family History Father Diverticulitis Unknown Cancer thyroid, lung, breast, Denies family history of Anesthesia complication Bleeding disorder Social History Smoking and tobacco status: never smoked Alcohol intake: current Alcohol type: wine Household members: spouse Marital status: Current occupational status: retired History of recent travel: No Vitals/I&O/Wt Last Vital Signs Temp 98.3 F 06/24/20 11:31 Pulse 72 06/24/20 11:31 Resp 18 06/24/20 11:31 BP 98/54 06/24/20 11:31 Pulse Ox 95 06/24/20 11:31 06/23/20 06/24/20 06/24/20 22:59 06:59 14:59 Intake Total 650 / 1850 940 / 2790 Output Total 620 / 620 800 / 1420 Balance 30 / 1230 140 / 1370 Physical Exam Narrative: EXAM NARRATIVE: Patient is conscious alert oriented X3 BMI 32.8 Head and neck examination PERRLA no masses no cervical lymphadenopathy no jaundice Cardiac examination audible S1-S2 no murmurs no gallops no arrhythmias Chest is clear bilateral,abscence of Rhonchi or wheezes,mild surgical emphysema Abdomen nontender except mildly at the incision site nondistended soft no organomegaly guarding or rigidity/no signs of peritonitis Extremities no cyanosis no clubbing no edema Urinary Catheter Management^: Vale: Cath Placed During This Visit: yes, but has since been removed by the nurse Reason for Continuing Indwelling Catheter: Decision to DC Catheter Urinary Catheter Date of Insertion: 06/23/20 Urinary Catheter Time of Insertion: 10:30 Date Urinary Catheter Removed: 06/23/20 Time Urinary Catheter Discontinued: 16:30 Hospital Course Admission Diagnoses: Symptomatic paraesophageal hernia Discharge Summary: Patient overall did well after surgery yet she did have some pain likely related to CO2 gas which upon ambulation she got better relief. Tolerating p.o. intake liquid diet after she had an upper GI study that showed: FINDINGS: Status post laparoscopic paraesophageal hernia repair with Marta fundoplication and mesh placement. Normal postoperative changes. Expected delayed emptying in the distal esophagus. No evidence of recurrent or residual hernia. No evidence of contrast leak. FL/FL upper GI gastrografin [id number] IMPRESSION: Normal postoperative changes. No evidence of contrast leak. Patient is tolerating p.o. intake and her pain is under control via p.o. pain medications. Denies any nausea or vomiting. Vital signs are stable and good urine output. We will plan to discharge home today. On clear liquid diet. And return to surgery office in 1 week. SSS Data Data Completed and Pending: Completed Studies During Hospitalization Category Date Time Status FL upper GI gastr ografin [id number] Rout ine Exams 06/24/20 08:00 Completed Pending at discharge Category Date Time Status ES surgery / GI i mages Routine Exams 06/23/20 09:45 Ordered Basic Metabolic P [facility] 06/25/20 04:00 Uncollected Basic Metabolic P [facility] 06/26/20 04:00 Uncollected Hemoglobin and He matocrit Lab 06/25/20 04:00 Uncollected Hemoglobin and He matocrit Lab 06/26/20 04:00 Uncollected Pathology: Surgic al [PTH] Routine Pth 06/23/20 14:54 Received Diagnoses at Discharge Discharge Diagnosis (1) S/P repair of paraesophageal hernia: Status: Acute Problem details: We will plan to discharge patient home today with specific post Marta diet instruction Discharge Plan Discharge Patient Disposition: Home Condition: Stable Prescriptions: [place] 5-325 mg tablet 1 tab PO Q6H PRN (Reason: pain) Qty: 28 RF: 0 scopolamine base 1 mg over 3 days patch 3 day 1 patch TRANSDERMA Q3D PRN (Reason: nausea and vomiting) 3 Days Qty: 1 RF: 3 Zofran 4 mg tablet 4 mg PO Q6H PRN (Reason: nausea and vomiting) Qty: 30 RF: 2 Continued aspirin 81 mg tablet,delayed release (DR/EC) 81 mg PO DAILY RF: 0 polyethylene glycol 3350 [Miralax] 17 gram powder in packet 17 gm PO EVERY OTHER DAY RF: 0 cyclobenzaprine 10 mg tablet 10 mg PO TID Qty: 90 RF: 2 pantoprazole [Protonix] 40 mg tablet,delayed release (DR/EC) 40 mg PO BID Qty: 180 RF: 1 multivitamin Tablet 1 tab PO DAILY RF: 0 duloxetine [Cymbalta] 60 mg capsule,delayed release(DR/EC) 60 mg PO DAILY Qty: 90 RF: 1 lovastatin 20 mg tablet 20 mg PO DAILY Qty: 90 RF: 1 oxybutynin chloride 5 mg tablet 5 mg PO BID Qty: 180 RF: 1 levothyroxine 112 mcg capsule 112 mcg PO DAILY Qty: 90 RF: 1 Azo Urinary Tab 2 tab PO DAILY RF: 0 Black Elderberry 2 tab PO DAILY RF: 0 ondansetron HCl [Zofran] 4 mg tablet 4 mg PO Q6H PRN (Reason: nausea and vomiting) Qty: 30 RF: 1 acetaminophen [Tylenol] 325 mg Tablet 325 mg PO PRN RF: 0 lisinopril 5 mg tablet 5 mg PO DAILY Qty: 90 RF: 1 cefuroxime axetil 500 mg tablet 500 mg PO BID PRN (Reason: Frequent Urination) RF: 0 Held meloxicam 15 mg tablet 15 mg PO DAILY RF: 0 Hold Instructions: Resume on 06/27/20. Discharge Orders: Discharge Order (Routine); Ordered 06/24/20 Ordered By: Jitendra Newberry Referrals: Jitendra Newberry MD [Physician] - 07/01/20 2:45 pm (You have an appointment on July 01 at 2:45) Aviva Gomez DO [Primary Care Provider] - 07/15/20 8:00 am (You have an appointment on July 15 at 8:00am) Discharge Diet: As Directed Discharge Activity: Limit activity as instructed Patient Instructions: Scopolamine (Absorbed through the skin), Oxycodone/Acetaminophen (By mouth), Ondansetron (By mouth), Constipation (DC), Gastroesophageal Reflux Disease (DC), Laparoscopic Paraesophageal Hernia Repair (DC), Hypertension (DC) Activity Restrictions/Additional Instructions: 1. Patient can shower after 48 hours from surgery 2. Remove Dermabond 7 to 10 days after surgery, if there is a secondary dressing can take down after 48 hours. 3. Up and walking as tolerated 4. Do lift more than 5 pounds first 2 weeks after surgery and not more than 25 pounds 6 to 8 weeks after surgery. 5. Do not operate heavy machinery or drive while using pain medications. 6.Contact the office or return to the ER for worsening nausea vomiting fevers or chills, or noticing any redness around incision sites or discharge. 7.Avoid nauzea and vomiting 8.Avoid constipation 9. Clear liquid diet for 1 week till the patient comes back and see me in the office Attestations Medical Necessity Statement*: Observation status Time Spent in Patient Care*: greater than 30 min Specific Discharge Activities: Specific discharge activities: educating patient and educating and/or supporting family/caregiver Status at Discharge: Cognitive status at discharge: cognitively intact, Behavioral status at discharge: cooperative, Functional status at discharge: independent ambulation Overall status at discharge: patient is progressing back to baseline Quality Metrics Clinical Quality Measures: During this hospital stay, did patient experience: None Coding Level of Care Code Acute Maintenance Service Supervisor for Chg Fwd Diagnoses S/P repair of paraesophageal hernia Z98.890; Z87.19
[2020-06-24] MEDS: HYDROcodone-acetaminophen 5-325 mg Tablet 1 TAB PO (13:40)
== END 2020-06-24 17:27 | disposition home or self-care (01) ==
LOC: MEDSURG 15:09
PROVIDERS: Admitting Provider Surgery; PCP Family Medicine; Visit Provider Surgery
PROC: 0DQ54ZZ Repair Esophagus, Percutaneous Endoscopic Approach (ICD-10-PCS; CPT 43281; principal; 2020-06-23 08:15)
PROC: 0DV44ZZ Restriction of Esophagogastric Junction, Percutaneous Endoscopic Approach (ICD-10-PCS; CPT 43280; 2020-06-23 08:15)
PROC: 0DJ08ZZ Inspection of Upper Intestinal Tract, Via Natural or Artificial Opening Endoscopic (ICD-10-PCS; CPT 43235; 2020-06-23 08:15)
DX: K44.9 Diaphragmatic hernia without obstruction or gangrene (principal); Z79.82 Long term (current) use of aspirin; E78.5 Hyperlipidemia, unspecified; I10 Essential (primary) hypertension; K21.9 Gastro-esophageal reflux disease without esophagitis; M79.7 Fibromyalgia; E03.9 Hypothyroidism, unspecified; M19.90 Unspecified osteoarthritis, unspecified site
CPT/HCPCS: 43282; 12345; 36415; 43235; 51702; 74240; 80048; 85014; 85018; 88302; 96361; 96365; 96366; 96372; 96375; C1713; C9290; G0378; J0131; J0690; J1100; J1644; J2270; J2405; J2704; J2710; J3010; J3490; J7030; Q9963

== ENCOUNTER → 2020-07-15 08:22 | Outpatient (BNVA) | payer MEDICARE, SELFPAY | PROVIDERS: PCP Family Medicine; Visit Provider Family Medicine | DX: E03.9 Hypothyroidism, unspecified (principal); M79.7 Fibromyalgia; I10 Essential (primary) hypertension; F33.1 Major depressive disorder, recurrent, moderate | CPT/HCPCS: 84443 ==

== ENCOUNTER → 2020-08-14 13:47 | Outpatient (BNVA) | payer MEDICARE, SELFPAY | PROVIDERS: PCP Family Medicine; Visit Provider Family Medicine | DX: R53.83 Other fatigue (principal); D64.9 Anemia, unspecified; E03.9 Hypothyroidism, unspecified | CPT/HCPCS: 82728; 83550; 84443; 85025 ==

== ENCOUNTER → 2020-09-17 14:02 | Outpatient (BNVA) | payer MEDICARE, SELFPAY | PROVIDERS: PCP Family Medicine; Visit Provider Nurse Practitioner Family | DX: J06.9 Acute upper respiratory infection, unspecified (principal); Z20.828 Contact with and (suspected) exposure to other viral communicable diseases | CPT/HCPCS: 87635 ==

== ENCOUNTER → 2020-11-03 12:52 | Outpatient (BNVA) | payer MEDICARE, SELFPAY | PROVIDERS: PCP Family Medicine; Visit Provider Urology | DX: R30.0 Dysuria (principal); N39.0 Urinary tract infection, site not specified | CPT/HCPCS: 81003 ==

== ENCOUNTER 2020-12-02 15:03 | Outpatient (CLI) | payer MEDICARE, SELFPAY ==
--- NOTE | 2020-12-02 15:04 | MM_ITS ---
WS: [id number] BILATERAL SCREENING DIGITAL MAMMOGRAM WITH CAD HISTORY: SCREENING COMPARISON: 11/07/2019 and 11/01/2018 Bilateral CC and MLO views submitted. Computer aided detection analyzed. Breast composition: There are scattered areas of fibroglandular density. No suspicious masses, microc alcifications or architectural distortion. Benign intramammary lymph nodes in the axillary tails. MM/[id number] IMPRESSION: BI-RADS: 2-Benign FOLLOW UP: 1 Year Follow-up
== END 2020-12-02 15:04 | disposition home or self-care (01) ==
LOC: RADSHAW 15:03
PROVIDERS: PCP Family Medicine; Visit Provider Family Medicine
DX: Z12.31 Encounter for screening mammogram for malignant neoplasm of breast (principal)
CPT/HCPCS: 77067

== ENCOUNTER → 2021-01-14 11:41 | Outpatient (BNVA) | payer MEDICARE, SELFPAY | PROVIDERS: PCP Family Medicine; Visit Provider Family Medicine | DX: I10 Essential (primary) hypertension (principal); E03.9 Hypothyroidism, unspecified | CPT/HCPCS: 80053; 80061; 82043; 84443; 85025 ==

== ENCOUNTER → 2021-07-15 12:42 | Outpatient (BNVA) | payer MEDICARE, SELFPAY | PROVIDERS: PCP Family Medicine; Visit Provider Family Medicine | DX: E78.5 Hyperlipidemia, unspecified (principal); E03.9 Hypothyroidism, unspecified; K21.9 Gastro-esophageal reflux disease without esophagitis; M79.7 Fibromyalgia; Z23 Encounter for immunization | CPT/HCPCS: 80053; 80061; 84443 ==

== ENCOUNTER → 2021-08-17 12:25 | Outpatient (BNVA) | payer MEDICARE, SELFPAY | PROVIDERS: PCP Family Medicine; Referring Provider Registered Nurse Neonatal Intensive Care; Visit Provider Registered Nurse Neonatal Intensive Care | DX: R19.7 Diarrhea, unspecified (principal) | CPT/HCPCS: 87506 ==

== ENCOUNTER → 2022-01-18 10:44 | Outpatient (BNVA) | payer MEDICARE, SELFPAY | PROVIDERS: PCP Family Medicine; Visit Provider Family Medicine | DX: I10 Essential (primary) hypertension (principal); E03.9 Hypothyroidism, unspecified | CPT/HCPCS: 80053; 84443; 85025 ==

== ENCOUNTER 2022-02-14 15:18 | Outpatient (CLI) | payer MEDICARE, SELFPAY ==
--- NOTE | 2022-02-14 15:28 | MM_ITS ---
WS: [id number] BILATERAL 3D TOMOSYNTHESIS DIGITAL SCREENING MAMMOGRAPHY WITH CAD CLINICAL INFORMATION: SCREENING HISTORY: Screening mammogram. Under arm soreness COMPARISON: December 02, 2020 TECHNIQUE: Bilateral CC and MLO views. FINDINGS: Scattered fibroglandular densities bilaterally. Incidental intramammary lymph nodes bilaterally. Punc singh calcification RIGHT breast. No suspicious focal mass, asymmetry, calcifications, or architectura l distortion. No evidence of malignancy. MM/[id number] IMPRESSION: BI-RADS: 2-Benign FOLLOW UP: 1 Year Follow-up Recommend return to annual screening mammography.
== END 2022-02-14 15:19 | disposition home or self-care (01) ==
LOC: RAD 15:21
PROVIDERS: PCP Family Medicine; Visit Provider Family Medicine
DX: Z12.31 Encounter for screening mammogram for malignant neoplasm of breast (principal)
CPT/HCPCS: 77063; 77067

== ENCOUNTER → 2022-02-15 17:15 | Outpatient (BNVA) | payer MEDICARE, SELFPAY | PROVIDERS: PCP Family Medicine; Visit Provider Family Medicine | DX: N39.46 Mixed incontinence (principal); R35.0 Frequency of micturition | CPT/HCPCS: 81000 ==

== ENCOUNTER → 2022-02-16 12:09 | Outpatient (BNVA) | payer MEDICARE, SELFPAY | PROVIDERS: PCP Family Medicine; Visit Provider Family Medicine | DX: N39.46 Mixed incontinence (principal); R82.90 Unspecified abnormal findings in urine | CPT/HCPCS: 87077; 87086; 87184 ==

== ENCOUNTER → 2022-05-23 12:43 | Outpatient (BNVA) | payer MEDICARE, SELFPAY | PROVIDERS: PCP Family Medicine; Visit Provider Family Medicine | DX: R30.0 Dysuria (principal) | CPT/HCPCS: 87077; 87086; 87184 ==

== ENCOUNTER 2022-06-24 13:51 | Emergency (ER) | payer MEDICARE, SELFPAY ==
[2022-06-24 14:00] VITALS: BP 123/72; PULSE 83; RESP 16; TEMP 37; O2SAT 95; BMI 38.9
--- NOTE | 2022-06-24 14:28 | PC.NURSE ---
pt reports last normal bowel movement was 10 days ago. reports she has had a couple marble sized bowel movements since. denies diarrhea. reports nausea and vomiting. reports hx of bowel obstructions and reports that this feels the same. reports LLQ pain for last 24-36 hours. denies fevers or complaints. pt lung sounds clear bilat. bowel sounds hypoactive, but present x4 quandrants.
--- NOTE | 2022-06-24 14:30 | XR_ITS ---
WS: [id number] KUB, AP view, 06/24/2022 Clinical Data: constipation Comparison: None. Findings: No abnormal intraabdominal masses or calcifications are seen. There is no dilatated small bowel or ev idence of obstruction. There is a moderate amount of fecal material in the colon. There are clips in the right upper quadran t from a cholecystectomy. A right hip arthroplasty is present XR/XR KUB [id number] Impression: Moderate amount of fecal material.
--- NOTE | 2022-06-24 14:32 | W.ED.GENADLT ---
HPI - General Adult General: Chief complaint: General Medical Stated complaint: constipation Time Seen by Provider: 06/24/22 14:30 Source: patient Mode of arrival: ambulatory History of Present Illness: 62-year-old female presents with complaints of constipation. She is. Seen in doctors office on 06/16 and was advised to use lactulose at that time. She had previously used MiraLAX with no relief. She states she not had a bowel movement in a week. She denies any medic easy melena hematemesis or coffee-ground emesis no vomiting no dysuria urgency or frequency she has diffuse abdominal cramping. She not been back to her primary care doctor's office since 06/16. Onset (ago): day(s) Location: abdomen Radiation: non-radiation Severity: moderate Quality: aching Pain Consistency: constant Relieving factors: none Exacerbating factors: none Associated symptoms: Reports decreased appetite; Deny chest pain, confusion, cough, diaphoresis, dyspnea, fevers/chills, headache(s), malaise, nausea, rash, palpitations, seizures, short of breath, syncope, vomiting or weakness Review of Systems Const: Denies: fever(s), chills, fatigue, malaise or diaphoresis ENMT: Denies: throat pain, ear or mastoid pain, nasal discharge or nasal congestion Card: Denies: chest pain, palpitations or syncope Resp: Denies: dyspnea, productive cough or non-productive cough GI: Reports: abdominal pain, constipation, bloating and GI cramping; Denies: nausea, vomiting or hematochezia : Denies: flank pain, difficulty voiding, dysuria, urinary frequency or urinary urgency Skin/Breast: Denies: rash or pruritus Neuro: Denies: headache(s) or confusion PFSH ED PFSH: Medical History Abdominal pain Bilateral pulmonary embolism Diagnosed in 06/20 - Anticoag. for 3-6 months. Dyslipidemia -lipid panel done recently -on statin Dysuria Essential hypertension Fibromyalgia GERD (gastroesophageal reflux disease) -on PPI Hot flashes due to menopause Hypothyroid Osteoarthritis Paraesophageal hernia Recurrent UTI Surgical History H/O cataract extraction H/O colonoscopy 12/13/19: NORMAL, repeat in 10 years H/O: hysterectomy History of hip surgery History of tonsillectomy S/P repair of paraesophageal hernia We will plan to discharge patient home today with specific post Marta diet instruction Status post laparoscopic cholecystectomy Family History Father Diverticulitis Unknown Cancer thyroid, lung, breast, Denies family history of Anesthesia complication Bleeding disorder Social History Smoking and tobacco status: former smoker Alcohol intake: current Alcohol type: wine Household members: spouse Marital status: Current occupational status: retired History of recent travel: No Physical Exam Const: GENERAL APPEARANCE: cooperative and comfortable ORIENTATION/CONSCIOUSNESS: Yes awake, Yes oriented to person, Yes oriented to place and Yes oriented to time HENMT: COMMON NORMALS: normocephalic, atraumatic and hearing grossly normal bilaterally HEAD & SCALP: normocephalic and atraumatic Resp: COMMON NORMALS: normal respiratory effort, No retractions, No use of accessory muscles and clear to auscultation bilaterally AUSCULTATION: clear to auscultation bilaterally Cardio: COMMON NORMALS: regular rate, regular rhythm and No murmurs present (Cardio) RATE: regular rate RHYTHM: regular rhythm GI: COMMON NORMALS: Soft to palpation and No hepatosplenomegaly present AUSCULTATION: Yes normoactive bowel sounds PALPATION: Yes Soft to palpation, No Tenderness to palpation present (GI), No Guarding due to palpation present (GI) and Yes No hepatosplenomegaly present Extremity: COMMON NORMALS: normal to inspection, capillary refill normal, no clubbing, cyanosis or edema, no calf tenderness and no pedal edema Neuro: SENSORIUM/ORIENTATION: Yes oriented to person, Yes oriented to place and Yes oriented to time Skin: COMMON NORMALS: no rashes or lesions noted GENERAL SKIN EXAM: no rashes or lesions noted Course Vital Signs: Vital signs: Vital Signs Temperature 98.6 F 06/24/22 14:00 Pulse Rate 81 06/24/22 16:02 Respiratory Rate 16 06/24/22 14:00 Blood Pressure 109/86 06/24/22 16:02 Pulse Oximetry 96 06/24/22 16:02 [facility] - General Adult Medical Decision Making Constipation exam unremarkable. Medical molasses enema here than the lactulose which she did not get from last time she was prescribed by her primary care doctor. After that she should use MiraLAX regularly to prevent constipation in the future follow-up with primary care if not improving. Medical Records I reviewed the patient's medical records. Lab Data I reviewed the patient's lab results. Radiology Impressions KUB X-Ray 06/24/22 14:30 Impression: Moderate amount of fecal material. Discharge Plan Discharge Patient Disposition: Home Clinical Impression: Constipation Condition: Stable Prescriptions: No Action aspirin 81 mg tablet,delayed release (DR/EC) 81 mg PO DAILY Rx Instructions: medication on med list brought in by the pt multivitamin Tablet 1 tab PO DAILY Rx Instructions: medication on med list brought in by the pt lactulose 10 gram/15 mL solution 20 g PO BID Qty: 946 0RF Viberzi 100 mg tablet 100 mg PO BID Qty: 60 0RF Rx Instructions: must administer with a meal/food lisinopril 5 mg tablet See Rx Instructions .ROUTE .COMPLEX Qty: 90 1RF Dose Instruction: Take 1 tablet by mouth once daily Rx Instructions: Take 1 tablet by mouth once daily cyclobenzaprine 10 mg tablet 10 mg PO TID Qty: 270 1RF duloxetine 60 mg capsule,delayed release(DR/EC) See Rx Instructions .ROUTE .COMPLEX Qty: 90 1RF Dose Instruction: Take 1 capsule by mouth once daily Rx Instructions: Take 1 capsule by mouth once daily pantoprazole [Protonix] 40 mg tablet,delayed release (DR/EC) 40 mg PO BID Qty: 180 1RF oxybutynin chloride 5 mg tablet See Rx Instructions .ROUTE .COMPLEX Qty: 90 1RF Dose Instruction: Take 1 tablet by mouth once daily Rx Instructions: Take 1 tablet by mouth once daily ondansetron HCl 4 mg tablet 4 mg PO Q6H PRN (Reason: nausea and vomiting) Qty: 30 5RF atorvastatin 40 mg tablet 40 mg PO DAILY Qty: 90 1RF levothyroxine 88 mcg tablet 88 mcg PO DAILY Qty: 90 1RF meloxicam 15 mg tablet See Rx Instructions .ROUTE .COMPLEX Qty: 90 0RF Dose Instruction: Take 1 tablet by mouth once daily Rx Instructions: Take 1 tablet by mouth once daily mirtazapine 15 mg tablet See Rx Instructions .ROUTE .COMPLEX Qty: 30 0RF Dose Instruction: TAKE 1 TABLET BY MOUTH ONCE DAILY AT BEDTIME Rx Instructions: TAKE 1 TABLET BY MOUTH ONCE DAILY AT BEDTIME Azo Urinary Tab 2 tab PO DAILY Rx Instructions: medication on med list brought in by the pt Black Sethberry 2 tab PO DAILY Rx Instructions: medication on med list brought in by the pt acetaminophen [Tylenol] 325 mg Tablet 325 mg PO PRN cefuroxime axetil 500 mg tablet 500 mg PO BID PRN (Reason: Frequent Urination) Rx Instructions: This medication is on standby and to be used if she experiences a UTI Discharge Orders: Discharge ED (Routine); Ordered 06/24/22 Ordered By: Ezra Mueller Referrals: Aviva Gomez DO [Primary Care Provider] - Patient Instructions: Opioid Safety, Pain Management Coding Level of Care Code ED Research Program Coordinator for [facility] Fwd Exam Detailed
--- NOTE | 2022-06-24 15:30 | PC.NURSE ---
pt had a medium sized BM in BSC. requesting nausea medications
[2022-06-24 16:02] VITALS: BP 109/86; PULSE 81; O2SAT 96
== END 2022-06-24 16:04 | disposition home or self-care (01) ==
PROVIDERS: Emergency Provider Family Medicine; PCP Family Medicine
DX: K59.00 Constipation, unspecified (principal); I10 Essential (primary) hypertension; E78.5 Hyperlipidemia, unspecified; E03.9 Hypothyroidism, unspecified; Z79.82 Long term (current) use of aspirin; Z87.891 Personal history of nicotine dependence
CPT/HCPCS: 45915; 74018; 99283

== ENCOUNTER → 2022-07-22 11:27 | Outpatient (BNVA) | payer MEDICARE, SELFPAY | PROVIDERS: PCP Family Medicine; Visit Provider Family Medicine | DX: I10 Essential (primary) hypertension (principal); E78.5 Hyperlipidemia, unspecified; E03.9 Hypothyroidism, unspecified; Z23 Encounter for immunization | CPT/HCPCS: 80053; 80061; 82043; 84443 ==

== ENCOUNTER → 2022-11-07 13:34 | Outpatient (BNVA) | payer MEDICARE, SELFPAY | PROVIDERS: PCP Family Medicine; Visit Provider Urology | DX: Z87.440 Personal history of urinary (tract) infections (principal); N39.46 Mixed incontinence | CPT/HCPCS: 81003; 99213 ==

== ENCOUNTER 2023-02-17 09:46 | Outpatient (CLI) | payer MEDICARE, SELFPAY ==
--- NOTE | 2023-02-17 09:56 | MM_ITS ---
WS: [id number] Bilateral screening 3D tomosynthesis digital mammogram, 02/17/2023 Clinical Data: SCREENING Comparison: 2021, 12/02/2020, 11/07/2019, 11/01/2018, 02/14/2018, 11/07/2017, 10/25/2017, 10/20/2016, 015. Findings: The breast parenchymal pattern shows fibroglandular tissue. No spiculated masses or clustered calcifi cations are seen. There are no secondary signs of carcinoma. MM/[id number] Impression: 1. Negative bilateral mammogram unchanged. 2. Recommend annual screening mammograms. BIRADS: 1-Negative FOLLOW UP: 1 Year Follow-up The CAD tool design checker was used.
== END 2023-02-17 09:47 | disposition home or self-care (01) ==
PROVIDERS: PCP Family Medicine; Visit Provider Family Medicine
DX: Z12.31 Encounter for screening mammogram for malignant neoplasm of breast (principal)
CPT/HCPCS: 77063; 77067

== ENCOUNTER → 2023-02-28 10:43 | Outpatient (BNVA) | payer MEDICARE, SELFPAY | PROVIDERS: PCP Family Medicine; Visit Provider Family Medicine | DX: E03.9 Hypothyroidism, unspecified (principal); I10 Essential (primary) hypertension | CPT/HCPCS: 80053; 84443; 85025 ==

== ENCOUNTER → 2023-08-14 09:40 | Outpatient (BNVA) | payer MEDICARE, SELFPAY | PROVIDERS: PCP Family Medicine; Visit Provider Family Medicine | DX: E03.9 Hypothyroidism, unspecified (principal); E78.5 Hyperlipidemia, unspecified | CPT/HCPCS: 80053; 80061; 84443 ==

== ENCOUNTER → 2023-09-07 13:53 | Outpatient (BNVA) | payer MEDICARE, SELFPAY | PROVIDERS: PCP Family Medicine; Referring Provider Family Medicine; Visit Provider Family Medicine | DX: E03.9 Hypothyroidism, unspecified (principal) | CPT/HCPCS: 84439; 84443 ==

== ENCOUNTER 2023-10-06 08:58 | Outpatient (CLI) | payer MEDICARE, SELFPAY ==
[2023-10-06 09:54] VITALS: BMI 42.1
--- NOTE | 2023-10-06 09:55 | ECG_ITS ---
[facility] Test Date: 2023-10-06 Pat Name: Dang Zuniga Department: Room: Gender: Female Horticulture Superintendent: Ricksebastian Wilcox : 1960 Requested By: Aviva Gomez Order Number: [id number] Marques MD: Pawel Madera M.D. Interpretive Statements NAME OF STUDY: EXERCISE SESTAMIBI STRESS TEST INDICATION: [BAHENA, HTN, HLD, ] EXERCISE DATA: The patient was exercised by Lloyd protocol. Baseline heart rate was 80 beats per minute. Baseline blood pressure was 137/97 millimeters of mercury. Target heart rate was 133 beats per minute. Maximum heart rate achieved was 140, which was 105% of the target heart rate. Maximum blood pressure was 166/98 millimeters of mercury. Total exercise time was 4 minutes 45 seconds. Maximum METs achieved was 7. The reason for ending the test was maximal effort achieved. The patient complained of shortness of breath during the stress test, which then resolved at the end of the test. ELECTROCARDIOGRAM: BASELINE: Showed sinus rhythm, normal axis, no significant ST-T changes at the baseline noted. [] EXERCISE: At the peak exercise level, [] No significant ST-T changes suggestive of ischemia noted. [] RECOVERY: During the recovery period, heart rate dropped appropriately. No significant ST-T changes in the recovery suggestive of ischemia noted. [] CONCLUSION: 1. Exercise capacity fair 2. Heart rate response was appropriate 3. Blood pressure response was appropriate 4. Symptoms not suggestive of ischemia. 5. Electrocardiogram portion of the stress test was not suggestive of ischemia. 6. Nuclear scan will be documented separately. Electronically Signed On 11-05-2023 11:28:56 [employer]IATION TECHNICAL SYSTEMS SPECIALIST by Pawel Madera M.D. [email or web address]
--- NOTE | 2023-10-06 09:56 | NMCV_ITS ---
NM jessica perf SPECT r/s* [id number] Dang Zuniga Age: 62 Gender: F : 1960 Exam Date: 10/06/2023 10:34 Ordering Phys: Aviva Gomez DO Technologist: ALEJANDRO Murray Exam Location: [facility] Indications: SHORTNESS OF BREATH STRESS TEST Please see separate stress test report in [facility] for full findings IMAGE PROTOCOL Rest/Stress 1 Exercise Day Radiopharmaceutical Dose (mCi) Administration Site Administered by Rest: Tc-99m 10.8 IV ALEJANDRO Yeager Sestamibi Stress:Tc-99m 32.2 IV ALEJANDRO Yeager Sestamisean Rest: 06-Oct-2023 60 Discovery 630 Stress: 06-Oct-2023 15 Discovery 630 Radiopharmaceutical was injected at 85 % maximum heart rate. Images obtained in supine and prone position. SPECT RESULTS Technical Quality: Excellent Raw Data Analysis: Normal Image Corrections: No attenuation or motion correction applied Summed Stress Score: 2 Summed Rest Score: 7 Summed Difference Score: 0 PERFUSION FINDINGS There is a small sized fixed perfusion defect noted in the inferolateral wall. 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 FUNCTIONAL RESULTS (calculated via Gated SPECT) Stress Image LV EF (%): 83 Stress EDV (mL):90 TID: 0.8 Stress ESV (mL):15 FUNCTIONAL FINDINGS: There is normal left ventricular systolic function. IMPRESSIONS 1. 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 2. LV systolic function is normal. Pawel Madera MD (Electronically Signed) Final Date: 06 October 2023 14:59 S
[2023-10-06 11:30] VITALS: BP 145/103; PULSE 98
== END 2023-10-06 08:59 | disposition home or self-care (01) ==
PROVIDERS: PCP Family Medicine; Visit Provider Family Medicine
DX: I10 Essential (primary) hypertension (principal); E78.5 Hyperlipidemia, unspecified; R06.00 Dyspnea, unspecified; R06.02 Shortness of breath; I25.2 Old myocardial infarction
CPT/HCPCS: 36415; 78452; 93017; A9500

== ENCOUNTER 2023-11-13 12:12 | Outpatient (CLI) | payer MEDICARE, SELFPAY ==
--- NOTE | 2023-11-13 12:17 | XRR_ITS ---
PROCEDURE INFORMATION: Exam: XR Left Hip Exam date and time: 11/13/2023 12:21 PM Age: 62 years old Clinical indication: Hip pain; Left hip; Additional info: Left hip pain TECHNIQUE: Imaging protocol: Radiologic exam of the left hip. Views: 2 or 3 views hip with pelvis when performed. COMPARISON: CT abdomen pelvis w con* [id number] 05/10/2020 5:02 PM FINDINGS: Bones/joints: Severe arthritis left hip. Prominent left lateral superior acetabular left and buttressing of the lateral left femoral head could cause femoroacetabular impingement. Otherwise, unremarkable. Soft tissues: Unremarkable. Vasculature: Several small calcifications in the pelvis are highly likely to be phleboliths. However, in the proper clinical setting a distal ureteral calculus may need to be considered. XR/XR hip LT 2-3V wo/w pel* [id number] IMPRESSION: 1. No acute findings. 2. Additional details as above.
== END 2023-11-13 12:13 | disposition home or self-care (01) ==
LOC: RAD 12:13
PROVIDERS: PCP Family Medicine; Visit Provider Family Medicine
DX: M16.12 Unilateral primary osteoarthritis, left hip (principal); E03.9 Hypothyroidism, unspecified
CPT/HCPCS: 73502; 84439; 84443

== ENCOUNTER → 2023-12-19 09:07 | Outpatient (BNVA) | payer MEDICARE, SELFPAY | PROVIDERS: PCP Family Medicine; Referring Provider Family Medicine; Visit Provider Family Medicine | DX: E03.9 Hypothyroidism, unspecified (principal) | CPT/HCPCS: 84439; 84443 ==

== ENCOUNTER → 2024-01-15 13:43 | Outpatient (BNVA) | payer MEDICARE, SELFPAY | PROVIDERS: PCP Family Medicine; Visit Provider Specialist | DX: M16.12 Unilateral primary osteoarthritis, left hip (principal) | CPT/HCPCS: 73502; 99204 ==

== ENCOUNTER 2024-02-13 06:00 | Outpatient (RCR) | payer MEDICARE, SELFPAY | END 2024-03-01 23:59 | disposition home or self-care (01) | LOC: MPT 06:00 | PROVIDERS: Visit Provider Specialist | DX: M25.552 Pain in left hip (principal) | CPT/HCPCS: 97110; 97162 ==

== ENCOUNTER 2024-03-02 06:00 | Outpatient (RCR) | payer MEDICARE, SELFPAY | END 2024-03-31 23:59 | disposition home or self-care (01) | LOC: MPT 06:00 | PROVIDERS: PCP Family Medicine; Visit Provider Specialist | DX: M25.552 Pain in left hip (principal) | CPT/HCPCS: 97110; 97112 ==

== ENCOUNTER 2024-03-07 11:21 | Outpatient (CLI) | payer MEDICARE, SELFPAY ==
--- NOTE | 2024-03-07 11:20 | MM_ITS ---
WS: [id number] BILATERAL SCREENING DIGITAL TOMOSYNTHESIS MAMMOGRAM WITH CAD HISTORY: SCREENING COMPARISON: 02/17/2023, 02/14/2022 Bilateral CC and MLO views with tomosynthesis and synthetic mammography submitted. Computer aided det ection analyzed. Breast composition: There are scattered areas of fibroglandular density. No suspicious masses, microc alcifications or architectural distortion. Benign intramammary lymph nodes. Benign calcifications. MM/[id number] IMPRESSION: BI-RADS: 2-Benign FOLLOW UP: 1 Year Follow-up
== END 2024-03-07 11:22 | disposition home or self-care (01) ==
LOC: MOBLMAM 11:30
PROVIDERS: PCP Family Medicine; Visit Provider Family Medicine
DX: Z12.31 Encounter for screening mammogram for malignant neoplasm of breast (principal); R92.323 Mammographic fibroglandular density, bilateral breasts; D36.0 Benign neoplasm of lymph nodes; R92.1 Mammographic calcification found on diagnostic imaging of breast
CPT/HCPCS: 77063; 77067

== ENCOUNTER → 2024-03-13 14:01 | Outpatient (BNVA) | payer MEDICARE, SELFPAY | PROVIDERS: PCP Family Medicine; Visit Provider Specialist | DX: M16.12 Unilateral primary osteoarthritis, left hip (principal); E66.01 Morbid (severe) obesity due to excess calories; Z68.41 Body mass index [BMI] 40.0-44.9, adult | CPT/HCPCS: 99213 ==

== ENCOUNTER → 2024-04-24 13:20 | Outpatient (BNVA) | payer MEDICARE, SELFPAY | PROVIDERS: PCP Family Medicine; Visit Provider Family Medicine Adult Medicine | DX: E03.9 Hypothyroidism, unspecified (principal) | CPT/HCPCS: 84439; 84443 ==

== ENCOUNTER → 2024-05-02 08:31 | Outpatient (BNVA) | payer MEDICARE, SELFPAY | PROVIDERS: PCP Family Medicine; Visit Provider Podiatrist Foot & Ankle Surgery | DX: L60.0 Ingrowing nail (principal) | CPT/HCPCS: 11750; 99203 ==

== ENCOUNTER → 2024-06-17 16:17 | Outpatient (BNVA) | payer MEDICARE, SELFPAY | PROVIDERS: PCP Family Medicine; Visit Provider Specialist | DX: M16.12 Unilateral primary osteoarthritis, left hip (principal) | CPT/HCPCS: 73502; 99214 ==

== ENCOUNTER → 2024-10-18 15:21 | Outpatient (BNVA) | payer MEDICARE, SELFPAY | PROVIDERS: PCP Family Medicine; Visit Provider Family Medicine | DX: I10 Essential (primary) hypertension (principal); E78.5 Hyperlipidemia, unspecified; E03.9 Hypothyroidism, unspecified; E66.01 Morbid (severe) obesity due to excess calories; Z68.41 Body mass index [BMI] 40.0-44.9, adult; K21.9 Gastro-esophageal reflux disease without esophagitis; N39.46 Mixed incontinence; M79.7 Fibromyalgia; J43.1 Panlobular emphysema | CPT/HCPCS: 80053; 80061; 82607; 84439; 84443; 85025 ==

== ENCOUNTER → 2024-12-11 13:51 | Outpatient (BNVA) | payer MEDICARE, SELFPAY | PROVIDERS: PCP Family Medicine; Visit Provider Specialist | DX: M16.12 Unilateral primary osteoarthritis, left hip (principal) | CPT/HCPCS: 73502; 99214 ==

== ENCOUNTER → 2025-01-16 14:49 | Outpatient (BNVA) | payer MEDICARE, SELFPAY | PROVIDERS: PCP Family Medicine; Visit Provider Specialist | DX: Z01.818 Encounter for other preprocedural examination (principal) | CPT/HCPCS: 80053; 81000; 85025 ==

== ENCOUNTER → 2025-01-17 10:33 | Outpatient (BNVA) | payer MEDICARE, SELFPAY | PROVIDERS: PCP Family Medicine; Visit Provider Family Medicine | DX: N39.0 Urinary tract infection, site not specified (principal) | CPT/HCPCS: 87077; 87086; 87184 ==

== ENCOUNTER → 2025-01-20 11:34 | Outpatient (BNVA) | payer MEDICARE, SELFPAY | PROVIDERS: PCP Family Medicine; Visit Provider Family Medicine | DX: Z01.818 Encounter for other preprocedural examination (principal); N39.0 Urinary tract infection, site not specified | CPT/HCPCS: 93005 ==

== ENCOUNTER 2025-01-23 13:58 | Observation (INO) | payer MEDICARE, SELFPAY ==
[2025-01-23] VITALS (27 sets, daily range): BP systolic 88–158; BP diastolic 57–103; PULSE 70–95; RESP 11–20; TEMP 36.1–36.7; O2SAT 89–98; BMI 39.4; BMI 40.7
--- NOTE | 2025-01-23 10:25 | W.PM.OPSUD ---
Surgery/Procedure H&P Update DATE OF PROCEDURE: January 23, 2025 DATE H&P PERFORMED: 01/20/25 H&P UPDATE INFORMATION: I have reviewed H&P completed within last 30 days, I have examined patient prior to procedure, No changes to prior documentation, H&P is in [facility] EMR on date indicated and Risks and benefits of the procedure reviewed PLANNED PROCEDURE: Operation Date: 01/23/25 11:25 Proposed Procedures p Total Hip Arthroplasty(Left) - Dorothea Montilla MD Related Problem List Diagnoses (1) Primary osteoarthritis of left hip:
[2025-01-23] MEDS: sodium chloride 0.9% 1,000 ML 30 ML IV (10:26)
[2025-01-23] MEDS: acetaminophen 1,000 MG/100 ML PIGGYBACK 400 MG IV ×2 (10:29→17:26)
[2025-01-23] MEDS: gabapentin 300 mg Capsule PO (10:30)
[2025-01-23] MEDS: CELEcoxib 200 mg Capsule 400 MG PO (10:30)
--- NOTE | 2025-01-23 10:39 | ANES.PREANE2 ---
Pre-Anesthetic Assessment Height/Weight: Height 5 ft 4 in Weight 230 lb Temp Pulse Resp BP Pulse Ox O2 Del Method 98 F 70 18 116/65 95 Room Air 01/23/25 09:46 01/23/25 09:46 01/23/25 09:46 01/23/25 09:46 01/23/25 09:46 01/23/25 09:56 Preop Diagnosis: Hip arthritis Operation Date: 01/23/25 11:25 Proposed Procedures p Total Hip Arthroplasty(Left) - Dorothea Montilla MD Was Beta Leif taken within 24 hours: Yes Was Clonidine taken within 24 hours: N/A Last intake: Intake Last Liquid Date 01/22/25 Last Solid Date 01/22/25 Last Solid Time 21:30 Social No alcohol and No tobacco Exam alert, oriented x 3, clear to auscultation bilaterally and regular rate & rhythm Airway Submandibular: within normal limits Cervical ROM: within normal limits Mallampati: Class II Comments: Comments: Edentulous Anesthetic Plan ASA status: 3 Anesthesia: General Other: No prior issues with anesthesia NPO since yesterday evening Patient has a history of COPD, occasional inhaler use History of hypertension on lisinopril and metoprolol GERD controlled with Protonix Patient has known recurrent UTIs Prior stress test indicating small prior infarct in LCA. No symptoms and was noted to not need any further workup per cardiology Prior PE in 2019. Hypothyroidism on Synthroid Labs reviewed and acceptable for procedure. NA 134 Plan for general anesthesia Medications/Allergies Home Medications ?Medication ?Instructions ?Recorded ?Confirmed ?Last Taken ?Type aspirin 81 mg tablet,delayed 81 mg PO DAILY 11/05/19 01/22/25 01/15/25 History release multivitamin 1 tab PO DAILY 11/15/19 01/22/25 01/22/25 History Azo Urinary Tab 2 tab PO DAILY 01/29/20 01/22/25 01/22/25 History Black Elderberry 2 tab PO DAILY 01/29/20 01/22/25 01/22/25 History acetaminophen 325 mg tablet 325 mg PO PRN 05/10/20 01/22/25 06/21/20 History (Tylenol) fluticasone 232mcg-salmeterol 1 inh inhalation Q12H Shortness of 08/14/24 01/22/25 01/22/25 Rx 14mcg/actuation breath act,powder breath #1 ea sensor (AirDuo Digihaler) albuterol sulfate 90 mcg/actuation 2 inh inhalation QID PRN shortness 10/18/24 01/22/25 01/22/25 Rx aerosol inhaler of breath or wheezing #3 ea atorvastatin 40 mg tablet 40 mg PO DAILY #90 tabs 10/18/24 01/22/25 01/22/25 Rx bupropion HCl 200 mg tablet,12 hr 200 mg PO QAM morbid obesity #90 10/18/24 01/22/25 01/22/25 Rx sustained-release tabs cefuroxime axetil 500 mg tablet 500 mg PO BID PRN Frequent 10/18/24 01/22/25 01/23/25 Rx Urination #60 tabs cyclobenzaprine 10 mg tablet 10 mg PO TID #270 tabs 10/18/24 01/22/25 01/22/25 Rx duloxetine 60 mg capsule,delayed 60 mg PO DAILY #90 ea 10/18/24 01/22/25 01/22/25 Rx release lactulose 10 gram/15 mL oral 20 g (30 mL) PO BID 90 days #5,400 10/18/24 01/22/25 01/22/25 Rx solution mL levothyroxine 100 mcg tablet 100 mcg PO DAILY 90 days #90 tabs 10/18/24 01/22/25 01/23/25 Rx lisinopril 5 mg tablet 5 mg PO BID #180 tabs 10/18/24 01/22/25 01/22/25 Rx meloxicam 15 mg tablet 15 mg PO DAILY #90 tabs 10/18/24 01/22/25 01/22/25 Rx metoclopramide HCl 5 mg tablet 5 mg PO BID #180 tabs 10/18/24 01/22/25 01/23/25 Rx metoprolol tartrate 25 mg tablet 25 mg PO BID #180 tabs 10/18/24 01/22/25 01/22/25 Rx oxybutynin chloride 5 mg 5 mg PO DAILY #90 tabs 10/18/24 01/22/25 01/22/25 Rx tablet,extended release 24 hr pantoprazole 40 mg tablet,delayed 40 mg PO BID #180 tabs 10/18/24 01/22/25 01/23/25 Rx release (Protonix) hydrocodone 5 mg-acetaminophen 325 1 tab PO BID PRN pain 30 days #60 12/03/24 01/22/25 01/23/25 Rx mg tablet tabs Allergies Allergy/AdvReac Type Severity Reaction Status Date / Time No Known Allergies Allergy Verified 01/20/25 11:56 Current Medications Generic Name Dose Route Start Last Admin Trade Name Freq PRN Reason Stop Dose Admin Sodium Chloride 1,000 mls @ 30 mls/hr 01/23/25 09:30 01/23/25 10:26 Sodium Chloride 0.9% IV 01/24/25 09:29 30 mls/hr .Q24H PRAKASH Administration PFSH Anesthesia Medical History Recurrent UTI Hot flashes due to menopause Bilateral pulmonary embolism Diagnosed in 06/20 - Anticoag. for 3-6 months. Paraesophageal hernia GERD (gastroesophageal reflux disease) -on PPI Essential hypertension Fibromyalgia Hypothyroid Dyslipidemia on statin Surgical History History of total right hip arthroplasty H/O cataract extraction OU w/ lens implants S/P repair of paraesophageal hernia We will plan to discharge patient home today with specific post Marta diet instruction Status post laparoscopic cholecystectomy H/O colonoscopy 12/13/19: NORMAL, repeat in 10 years H/O: hysterectomy w/ BSO due to cysts; no cancer History of tonsillectomy Family History Father Diverticulitis Unknown Cancer thyroid, lung, breast, Denies family history of Anesthesia complication Bleeding disorder Social History Smoking and tobacco/nicotine status: never used tobacco/nicotine Quit status (tobacco/nicotine): has quit using Year quit tobacco: 1995 Alcohol intake: current Alcohol intake frequency: holidays/special occasions only Alcohol type: wine Substance/Drug Use: never Household members: spouse Marital status: Number of children: 2 Highest education level completed: Some College, No Degree Current occupational status: retired 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
[2025-01-23] MEDS: fentaNYL 50 mcg/mL INJ 2mL IVP ×2 (10:43→15:21)
[2025-01-23] MEDS: midazolam 1 mg/mL INJ 2 mL 2 MG IVP (11:00)
[2025-01-23] MEDS: ceFAZolin 2,000 mg SDV 2000 MG IVP ×2 (12:12→20:20)
[2025-01-23] MEDS: tranexamic acid 1,000 mg/10mL SDV 1000 MG IV (12:15)
[2025-01-23] MEDS: BUPivacaine liposome 13.3 mg/mL SDV 20 mL 266 MG INFILTRATI (12:50)
[2025-01-23] MEDS: BUPivacaine 0.5% INJ 30 mL 20 ML INJECTION (12:51)
[2025-01-23] MEDS: ceFAZolin 1,000 mg SDV 1000 MG IRRIGATION (12:57)
[2025-01-23] MEDS: vancomycin 1,000 MG SDV 1000 MG INTRA-ARTI (12:59)
--- NOTE | 2025-01-23 14:09 | P.OP_ITS ---
Operative Report Date of procedure: January 23, 2025 Pre-op diagnosis: Severe degenerative osteoarthritis left hip Post-op diagnosis: Severe degenerative osteoarthritis left hip Post-op findings: Severe degenerative osteoarthritis with large osteophytes Procedure done: Left total hip arthroplasty Implants: The Gail total hip system with a size 52 mm by E alpha code Trident II Tritanium acetabular shell with an MDM liner size 42 mm inner diameter by E alpha code.? A size 6 insignia standard offset hip stem with a size 28 mm x -2.7 mm femoral head and a denominational MDM X3 insert size 28 mm x 42E Specimens removed/disposition: Bone, disposed of Pathology: None sent Surgeon: Dorothea Montilla MD Catalyst Operator Gasoline: Maday Elaine, nurse practitioner, who services were required for positioning, exposure, manipulation, and retraction. Estimated blood loss (mL): 300 IV fluids (mL): 1,500 Urine output (mL): 150 Complications: None Findings: Severe degenerative osteoarthritis of the left hip with history of right total hip arthroplasty, obesity with a BMI at 40.7. The hip was stable at 90 degrees of flexion with 80 degrees of internal rotation and 20 degrees of adduction. It was also stable to external rotation. Leg lengths appeared equal. Condition: stable Disposition: PACU (Then admit to floor under observation status for postoperative rehabilitation and pain management) Brief History: This 63-year-old woman presented to the office complaining of severe left hip pain. She is status post right total hip arthroplasty and has done well following this. She was using ambulatory aids and had significant limitations in her activities of daily living. Patient trialed nonoperative measures such as anti-inflammatories, and she had ongoing pain and limitations. Secondary to this, she wished to proceed with left total hip arthroplasty. Risks and complications were discussed with her. Consents were signed in the office and questions were answered. The patient was given an additional opportunity for questions on the morning of surgery. Procedure: Patient was brought to the operating theater.? She was transferred to the operating room table and subsequently administered a general anesthesia intubated, ASA 3. This was well-tolerated.? Following administration of adequate anesthesia, the patient was placed in full lateral position and held in position with a pegboard.? The patient's left lower extremity was then prepped and draped in usual fashion utilizing DuraPrep.? It was draped free.? Following prepping and draping, a surgical pause was performed.? At the time of surgical pause, we identified the site and side of surgery.? We also identified the patient and preoperative surgical markings.?The patient's operative leg was compared to the opposite leg as a length comparison.? Confirmation was made of equipment availability.? Additionally, the patient's preoperative IV antibiotic, Ancef 2 g, and TXA administration was confirmed as well.? X-rays were also reviewed. Following the surgical pause, an incision was made centering over the patient's greater trochanter continuing proximally and distally as necessary to allow access to the hip joint.? Dissection continued through skin and soft tissues using a scalpel, and hemostasis was obtained using electrocautery. The tensor fascia bob was identified and incised longitudinally.? Sciatic nerve was identified and protected throughout the surgical procedure.? A Charnley U retractor was placed after the tensor fascia bob had been incised longitudinally, and the sciatic nerve had been identified.? Muscles around the hip were quite tight. Positioning of the hip for the surgical procedure was noted to be quite difficult. The hip was internally rotated, and the piriformis muscle was identified and tagged. Piriformis muscle along with the remaining short external rotators were then incised from the posterior aspect of the hip joint.? These were retracted posteriorly.? The capsule was entered in a T-type fashion with the edges being tagged, and subsequently, the hip was dislocated. The labrum, which which was degenerative, torn, and with significant synovitis, was excised with further excision accomplished once the femoral head was removed.? Following hip dislocation, a femoral neck osteotomy was accomplished in the appropriate position.??Femoral head was noted to be very deformed with significant femoral head collapse. There was essentially no normal anatomy left to the femoral head. We then evaluated the acetabulum. The femur was retracted anteriorly.? Soft tissues were retracted, and the labrum was further removed. We then began reaming.? Once the femoral head was removed, there was noted to be significant loss of cartilage within the acetabulum. In fact, there was no normal femoral head to measure for sizing. We reamed to a size 51 to allow for a size 52 acetabular shell. The size 52 mm acetabular shell was impacted into position without difficulty. It was noted to seat nicely.? The MDM liner was then impacted into position with care being taken to assure it seated appropriately. It was noted that the acetabulum matched the bony anatomy following osteophyte removal.? The cup was noted to seat nicely and had good fixation upon impact. Attention was directed to the proximal femur.? The proximal femur was lifted out of the wound.? A canal finder was passed after the box chisel.? The reamer was used to lateralize.? We then began broaching. We broached sequentially and had excellent fit and fill with the size 6 insignia broach. Trial was initially accomplished with a -4 mm offset femoral head. The hip was again reduced and placed through range of motion. With this construct of a size 6 broach, standard offset neck, and a -4 mm offset femoral head, it was felt that we could obtain more stability by increasing to a -2.7 mm femoral head. Once the -2.7 mm femoral head was placed in position, we had the above- noted stabilities. Leg lengths were felt to be equal. With the final construct as noted, we had the above-noted stabilities and appropriate leg length. Therefore, trial components were removed after the hip was dislocated. The size 6 insignia standard offset hip stem was impacted into position without difficulty and onto this was placed a -2.7 mm x 28 mm femoral head which had been assembled into the MDM insert size 42E.? With a -2.7 mm femoral head, we had the above-noted stability.? The stem was noted to seat nicely prior to placement of the femoral head.? The wound was copiously irrigated with 20 mL of Betadine and 500 mL of normal saline mixed together.? Subsequently, we suctioned this out and irrigated the wound copiously with lactated Ringer's.? At this time, with all components in appropriate position, the hip was reduced.? Following reduction of the prosthesis once again, we confirmed the stability of the hip.? Leg lengths were also felt to be satisfactory. Exparel was injected. Being satisfied with the prosthesis, attention was directed to closure.? Closure was accomplished with 0 Vicryl in the capsular tissues.? Piriformis was reattached with 0 Vicryl as well.? Tensor fascia bob was closed with 0 Vicryl in an interrupted fashion.? The subcutaneous tissues were closed with 2-0 Monocryl STRATAFIX.? Vancomycin powder and a Gelfoam thrombin mixture was placed into the wound as well.? The skin was closed with a running 3-0 Monocryl strata fix followed by Dermabond Trice and Yris. The patient was placed in an abduction pillow.? Patient was transferred off the operative bed and was brought to the recovery room in a satisfactory condition. Related Problem List Diagnoses (1) Primary osteoarthritis of left hip: (2) Morbid obesity with BMI of 40.0-44.9, adult:
--- NOTE | 2025-01-23 14:18 | SUR.OPER ---
PATIENT WAS FOUND TO HAVE SLIGHT BRUISING AND SKIN SHEARING ON ADHESIVE SITES
--- NOTE | 2025-01-23 14:34 | XR_ITS ---
WS: [id number] Exam: XR pelvis 1-2V* [id number] Date/Time of Exam: 01/23/2025 2:43 PM Reason For Exam: Status post left total hip arthroplasty Comparison 12/11/2024. Total LEFT hip arthroplasty in place. Also noted is a stable appearing RIGHT total hip replacement. XR/XR pelvis 1-2V* [id number] IMPRESSION: 1. Total LEFT hip arthroplasty.
--- NOTE | 2025-01-23 16:36 | PC.NURSE ---
1615 Patient taken to room 269 via bed. VS taken 97.7, 90, 18, 119/83, 95%. Charge nurse Yelitza at bedside.
[2025-01-23] MEDS: oxyCODONE 5 mg IR Tab/Cap PO ×2 (17:23→23:32)
[2025-01-23] MEDS: cyclobenzaprine 10 mg Tablet PO ×2 (17:23→20:20)
[2025-01-23] MEDS: chlorhexidine gluconate 0.12% Btl 473 mL 30 ML MUCOUS MEM ×2 (17:27→21:05)
[2025-01-23] MEDS: tranexamic acid 1,000 MG/100 ML PREMIX 600 MG IV (18:46)
[2025-01-23] MEDS: CELEcoxib 200 mg Capsule PO (20:20)
[2025-01-23] MEDS: metoclopramide 10 mg Tablet 5 MG PO (20:20)
[2025-01-23] MEDS: lisinopril 5 mg Tablet PO (20:20)
[2025-01-23] MEDS: metoprolol tartrate 25 mg Tablet PO (20:20)
[2025-01-23] MEDS: sennosides-docusate Tablet 2 TAB PO (20:21)
[2025-01-23] MEDS: mupirocin oint 22 gm 1 APPLIC NASAL (20:21)
[2025-01-23] MEDS: calcium carbonate 500 mg Chew Tablet 1000 MG PO (20:21)
[2025-01-23] MEDS: pantoprazole DR 40 mg Tablet PO (20:21)
[2025-01-23] MEDS: lactulose oral liq 20 gm/30 mL UDC PO (20:21)
[2025-01-23] MEDS: iron polysaccharide complex 150 mg Capsule PO (20:21)
[2025-01-23] MEDS: budesonide 0.5 mg/2 mL Neb INHALATION (21:05)
[2025-01-23] MEDS: albuterol 2.5 mg/3 mL Neb INHALATION (21:05)
[2025-01-24] VITALS (9 sets, daily range): BP systolic 93–145; BP diastolic 61–87; PULSE 69–82; RESP 14–19; TEMP 36.7–36.9; O2SAT 93–95
[2025-01-24] MEDS: acetaminophen 1,000 MG/100 ML PIGGYBACK 400 MG IV ×2 (02:17→10:05)
[2025-01-24] MEDS: ceFAZolin 2,000 mg SDV 2000 MG IVP ×2 (04:23→12:12)
[2025-01-24 06:11] LABS: Basophils % 0.2 %; Hematocrit 31.9 % (36-47); Lymphocytes # 2.3 10^3/uL (0.8-4.8); Lymphocytes % 15.6 %; Mean Corpuscular Volume 93.5 fl (85-98); Mean Platelet Volume 9.9 fL (7.4-10.4); Monocytes # 1.6 10^3/uL (0.2-0.9); Monocytes % 10.9 %; Neutrophils # 10.62 10^3/uL (1.8-7.7); Neutrophils % 72.8 %; Nucleated Red Blood Cells % 0 %; Platelet Count 307 10^3/cmm (157-399); Red Blood Count 3.41 10^6/uL (3.85-5.65); Red Cell Distribution Width 13.6 % (12.1-15.1); White Blood Count 14.59 10^3/uL (3.29-11.43)
[2025-01-24] MEDS: buPROPion SR (12 HR) 100 mg Tablet 200 MG PO (06:12)
[2025-01-24] MEDS: oxyCODONE 5 mg IR Tab/Cap PO ×2 (06:14→10:14)
[2025-01-24 06:34] LABS: Anion Gap 13.4 (5-19); Blood Urea Nitrogen 11 mg/dL (8-23); Calcium 8.6 mg/dL (8.5-10.5); Carbon Dioxide 25 mmol/L (22-29); Chloride 101 mmol/L (98-107); Creatinine Clr Calc Pharmacy 81.0333; Glucose 134 mg/dL (65-115); Osmolality Calculated 281 mOsm/kg (285-295); Potassium 4.4 mmol/L (3.5-5.1); Sodium 135 mmol/L (136-145)
[2025-01-24] MEDS: budesonide 0.5 mg/2 mL Neb INHALATION (08:32)
[2025-01-24] MEDS: albuterol 2.5 mg/3 mL Neb INHALATION (08:32)
[2025-01-24] MEDS: lactulose oral liq 20 gm/30 mL UDC PO (08:41)
[2025-01-24] MEDS: metoclopramide 10 mg Tablet 5 MG PO (08:42)
[2025-01-24] MEDS: cholecalciferol (vitamin D3) 1,000 unit Tablet 1000 UNIT PO (08:42)
[2025-01-24] MEDS: oxybutynin chloride XL 5 MG TABLET PO (08:42)
[2025-01-24] MEDS: levothyroxine 100 mcg Tablet PO (08:42)
[2025-01-24] MEDS: calcium carbonate 500 mg Chew Tablet 1000 MG PO (08:42)
[2025-01-24] MEDS: pantoprazole DR 40 mg Tablet PO (08:42)
[2025-01-24] MEDS: multivitamin therapeutic Tablet 1 TAB PO (08:43)
[2025-01-24] MEDS: duloxetine 60 mg Capsule PO (08:43)
[2025-01-24] MEDS: sennosides-docusate Tablet 2 TAB PO (08:43)
[2025-01-24] MEDS: aspirin 325 mg EC Tablet PO (08:43)
[2025-01-24] MEDS: CELEcoxib 200 mg Capsule PO (08:43)
[2025-01-24] MEDS: metoprolol tartrate 25 mg Tablet PO (08:44)
[2025-01-24] MEDS: lisinopril 5 mg Tablet PO (08:44)
[2025-01-24] MEDS: cyclobenzaprine 10 mg Tablet PO (08:44)
[2025-01-24] MEDS: atorvastatin 40 mg Tablet PO (08:44)
[2025-01-24] MEDS: mupirocin oint 22 gm 1 APPLIC NASAL (08:45)
[2025-01-24] MEDS: iron polysaccharide complex 150 mg Capsule PO (08:51)
[2025-01-24] MEDS: chlorhexidine gluconate 0.12% Btl 473 mL 30 ML MUCOUS MEM ×2 (08:52→12:12)
--- NOTE | 2025-01-24 10:12 | P.DS_ITS ---
Discharge Providers Date of Admission: 01/23/25 13:58 Date of Discharge: January 24, 2025 Attending Provider at Admission: Dorothea Montilla MD Attending Provider at Discharge: Dorothea Montilla MD Primary Care Provider: Aviva Gomez DO Diagnoses at Discharge Discharge Diagnosis (1) Primary osteoarthritis of left hip: Status: Acute (2) Morbid obesity with BMI of 40.0-44.9, adult: Status: Chronic (3) History of total left hip arthroplasty: Status: Acute Permanent problem details: Date of procedure: January 23, 2025 Diagnosis: Severe degenerative osteoarthritis left hip Procedure done: Left total hip arthroplasty Implants: The Gail total hip system with a size 52 mm by E alpha code Trident II Tritanium acetabular shell with an MDM liner size 42 mm inner diameter by E alpha code. A size 6 insignia standard offset hip stem with a size 28 mm x -2.7 mm femoral head and a christian MDM X3 insert size 28 mm x 42E Reason for Visit Reason for Visit: M16.12 Brief History: This 63-year-old woman presented to the office complaining of severe left hip pain. She is status post right total hip arthroplasty and has done well following this. She was using ambulatory aids and had significant limitations in her activities of daily living. Patient trialed nonoperative measures such as anti-inflammatories, and she had ongoing pain and limitations. Secondary to this, she wished to proceed with left total hip arthroplasty. Risks and complications were discussed with her. Consents were signed in the office and questions were answered. The patient was given an additional opportunity for questions on the morning of surgery. Hospital Course Hospital Course Patient was admitted after same-day surgery for left total hip arthroplasty. She did well following surgery and was able to work with physical therapy. She was independent in her room and comfortable with the hip precautions. Dressing was dry and intact. There was no evidence of DVT. She was neurologically intact. Decision was made to discharge the patient to home. She will follow-up in our office as scheduled. Physical Exam Const: COMMON NORMALS: no acute distress, patient oriented x3 and alert GENERAL APPEARANCE: cooperative and comfortable NUTRITIONAL APPEARANCE: overweight ORIENTATION/CONSCIOUSNESS: Yes awake HENMT: COMMON NORMALS: normocephalic and atraumatic HEAD & SCALP: normocephalic and atraumatic Eye: GENERAL EYE: appearance normal, both eyes and all related structures Chest: COMMONS NORMALS: normal inspection of the chest Resp: COMMON NORMALS: normal respiratory effort EFFORT & INSPECTION: Yes able to speak in complete sentences and Yes symmetric chest movement Extremity: LEFT LOWER EXTREMITY: Yes hip joint ([place]lon dressing is dry and intact.) Left hip: Yes inspection (No significant ecchymosis), Yes palpation (Minimal tenderness), Yes ROM (Not evaluated) and Yes neurovascular exam (No evidence of DVT) Neuro: COMMON NORMALS: patient oriented x3 SENSORIUM/ORIENTATION: Yes alert Psych: COMMON NORMALS: mental status grossly normal APPEARANCE: Yes grossly normal ATTITUDE: Yes calm and Yes engaged ATTENTION/CONCENTRATION: Yes attention grossly intact Skin: COMMON NORMALS: no rashes or lesions noted GENERAL SKIN EXAM: no rashes or lesions noted Urinary Catheter Management: Vale: Cath Placed During This Visit: yes, but has since been removed by the nurse Reason for Continuing Indwelling Catheter: Decision to DC Catheter Urinary Catheter Date of Insertion: 01/23/25 Urinary Catheter Time of Insertion: 12:01 Date Urinary Catheter Removed: 01/24/25 Time Urinary Catheter Discontinued: 06:15 Discharge Data Studies Completed and Pending Completed Studies During Hospitalization Category Date Time Status XR pelvis 1-2V* [id number] Routine Exams 01/23/25 14:34 Completed Radiology Impressions Pelvis X-Ray 01/23/25 14:34 IMPRESSION: 1. Total LEFT hip arthroplasty. Laboratory Results WBC 14.59 10^3/uL (3.29-11.43) H 01/24/25 05:46 RBC 3.41 10^6/uL (3.85-5.65) L 01/24/25 05:46 Hgb 9.90 g/dL (11.27-16.99) L 01/24/25 05:46 Hct 31.9 % (36-47) L 01/24/25 05:46 MCV 93.5 fl (85-98) 01/24/25 05:46 MCH 29.0 pg (27-33) 01/24/25 05:46 MCHC 31.0 g/dL (30-55) 01/24/25 05:46 RDW 13.6 % (12.1-15.1) 01/24/25 05:46 Plt Count 307 10^3/cmm (157-399) 01/24/25 05:46 MPV 9.9 fL (7.4-10.4) 01/24/25 05:46 Neut % (Auto) 72.8 % 01/24/25 05:46 Lymph % (Auto) 15.6 % 01/24/25 05:46 [place] % (Auto) 10.9 % 01/24/25 05:46 Eos % (Auto) 0.0 % 01/24/25 05:46 Baso % (Auto) 0.2 % 01/24/25 05:46 Neut # (Auto) 10.62 10^3/uL (1.8-7.7) H 01/24/25 05:46 Lymph # (Auto) 2.3 10^3/uL (0.8-4.8) 01/24/25 05:46 [place] # (Auto) 1.6 10^3/uL (0.2-0.9) H 01/24/25 05:46 Eos # (Auto) 0.0 10^3/uL (0.0-0.8) 01/24/25 05:46 Baso # (Auto) 0.0 10^3/uL (0.0-0.1) 01/24/25 05:46 Nucleated RBC % (auto) 0 % 01/24/25 05:46 Nucleated RBCs # 0.0 /100WBC 01/24/25 05:46 Sodium 135 mmol/L (136-145) L 01/24/25 05:46 Potassium 4.4 mmol/L (3.5-5.1) 01/24/25 05:46 Chloride 101 mmol/L (98-107) 01/24/25 05:46 Carbon Dioxide 25 mmol/L (22-29) 01/24/25 05:46 Anion Gap 13.4 (5-19) 01/24/25 05:46 BUN 11 mg/dL (8-23) 01/24/25 05:46 Creatinine 0.8 mg/dL (0.5-0.9) 01/24/25 05:46 GFR Calculation 72.0 mL/min (90-130) L 01/24/25 05:46 Glucose 134 mg/dL (65-115) H 01/24/25 05:46 Calculated Osmolality 281 mOsm/kg (285-295) L 01/24/25 05:46 Calcium 8.6 mg/dL (8.5-10.5) 01/24/25 05:46 Vitals Last Vital Signs Temp 98.5 F 01/24/25 07:49 Pulse 78 01/24/25 08:00 Resp 14 01/24/25 08:00 BP 99/64 01/24/25 07:49 Pulse Ox 94 01/24/25 08:00 O2 Del Method Room Air 01/24/25 08:00 O2 Flow Rate 2 01/24/25 00:00 FiO2 1 01/23/25 16:15 Discharge Plan Discharge Patient Disposition: Home Health Service Condition: Stable Prescriptions: New celecoxib 200 mg Capsule 200 mg PO 1XD 30 Days Qty: 30 0RF acetaminophen 500 mg Tablet 1,000 mg PO Q8H 30 Days Qty: 180 0RF oxycodone 5 mg Tablet 5 mg PO Q4H PRN (Reason: Moderate To Severe Pain) 7 Days Qty: 40 0RF Continued aspirin 81 mg tablet,delayed release (DR/EC) 81 mg PO DAILY Rx Instructions: medication on med list brought in by the pt multivitamin Tablet 1 tab PO DAILY Rx Instructions: medication on med list brought in by the pt hydrocodone-acetaminophen 5-325 mg tablet 1 tab PO BID PRN (Reason: pain) 30 Days Qty: 60 0RF Rx Instructions: Do not fill until 12/12/2024 oxybutynin chloride 5 mg tablet extended release 24hr 5 mg PO DAILY Qty: 90 1RF albuterol sulfate 90 mcg/actuation HFA aerosol inhaler 2 inh inhalation QID PRN (Reason: shortness of breath or wheezing) Qty: 3 3RF atorvastatin 40 mg tablet 40 mg PO DAILY Qty: 90 3RF bupropion HCl 200 mg tablet sustained-release 12 hr 200 mg PO QAM Qty: 90 3RF cefuroxime axetil 500 mg tablet 500 mg PO BID PRN (Reason: Frequent Urination) Qty: 60 2RF Rx Instructions: This medication is on standby and to be used if she experiences a UTI cyclobenzaprine 10 mg tablet 10 mg PO TID Qty: 270 1RF duloxetine 60 mg capsule,delayed release(DR/EC) 60 mg PO DAILY Qty: 90 3RF lactulose 10 gram/15 mL solution 20 g PO BID 90 Days Qty: 5400 2RF levothyroxine 100 mcg tablet 100 mcg PO DAILY 90 Days Qty: 90 3RF lisinopril 5 mg tablet 5 mg PO BID Qty: 180 3RF metoclopramide HCl 5 mg tablet 5 mg PO BID Qty: 180 3RF metoprolol tartrate 25 mg tablet 25 mg PO BID Qty: 180 3RF pantoprazole [Protonix] 40 mg tablet,delayed release (DR/EC) 40 mg PO BID Qty: 180 3RF AirDuo Digihaler 232-14 mcg/actuation aero powdr breath act w/sensor 1 inh inhalation Q12H Qty: 1 2RF Azo Urinary Tab 2 tab PO DAILY Rx Instructions: medication on med list brought in by the pt Black Elderberry 2 tab PO DAILY Rx Instructions: medication on med list brought in by the pt acetaminophen [Tylenol] 325 mg Tablet 325 mg PO PRN Held meloxicam 15 mg tablet 15 mg PO DAILY Qty: 90 3RF Hold Instructions: Resume on 02/23/25. Resume after Celebrex prescription is completed. If you feel meloxicam works better for you, you may switch to meloxicam at any time, but do not take both. Discharge Orders: Discharge Order (Routine); Ordered 01/24/25 Ordered By: Dorothea Montilla Referrals: [facility] [Outside] Dorothea Montilla MD [Physician] - 02/07/25 11:30 am Discharge Diet: Advance as tolerated and Usual diet Discharge Activity: Resume usual activity, Increase activity as tolerated, Limit activity as instructed, Use walker/crutches as instructed and As per PT/OT instructions Patient Instructions: Oxycodone, Rapid Release (By mouth), Celecoxib (By mouth), Acute Wound Care (DC), Total Hip Replacement (DC), Joint Replacement Stoplight, Opioid Safety, Post Anesthesia Care Activity Restrictions/Additional Instructions: Weight-bear as tolerated. Posterior hip precautions instructed. Home health to work with physical therapy on strengthening and gait training. Ice to hip. Discharge Attestations Time Spent in Discharge Care*: greater than 30 min Specific Discharge Activities: educating patient, documenting/other paperwork and evaluating patient/reviewing data Status at Discharge: Cognitive status at discharge: cognitively intact , Behavioral status at discharge: cooperative , Quality Metrics Clinical Quality Measures [ No reported AMI, CVA or VTE this stay] Coding Level of Care Code Acute Code for Chg Fwd Diagnoses Primary osteoarthritis of left hip M16.12 Morbid obesity with BMI of 40.0-44.9, adult E66.01; Z68.41 History of total left hip arthroplasty Z96.642
== END 2025-01-24 13:47 | disposition home health service (06) ==
LOC: MEDSURG 13:58
PROVIDERS: Admitting Provider Specialist; PCP Family Medicine; Visit Provider Specialist
PROC: (CPT 27130; principal; 2025-01-23 11:25)
DX: M16.12 Unilateral primary osteoarthritis, left hip (principal); E66.01 Morbid (severe) obesity due to excess calories; Z68.41 Body mass index [BMI] 40.0-44.9, adult; K21.9 Gastro-esophageal reflux disease without esophagitis; Z79.82 Long term (current) use of aspirin; Z87.440 Personal history of urinary (tract) infections; E03.9 Hypothyroidism, unspecified; Z86.711 Personal history of pulmonary embolism; J44.9 Chronic obstructive pulmonary disease, unspecified; E78.5 Hyperlipidemia, unspecified; I10 Essential (primary) hypertension; M79.7 Fibromyalgia; Z87.891 Personal history of nicotine dependence
CPT/HCPCS: 27130; 36415; 51702; 72170; 80048; 85025; 94640; 97110; 97116; 97161; 97165; A4216; C1776; G0378; J0131; J0666; J0690; J1100; J1171; J2250; J2405; J2704; J2710; J3010; J3370; J3490; J7030; J7613; J7626; J8597; J9999

== ENCOUNTER → 2025-02-07 11:19 | Outpatient (BNVA) | payer MEDICARE, SELFPAY | PROVIDERS: PCP Family Medicine; Visit Provider Nurse Practitioner | DX: Z98.890 Other specified postprocedural states (principal); Z96.642 Presence of left artificial hip joint | CPT/HCPCS: 99024 ==

== ENCOUNTER → 2025-03-04 10:31 | Outpatient (BNVA) | payer MEDICARE, SELFPAY | PROVIDERS: PCP Family Medicine; Visit Provider Family Medicine | DX: I10 Essential (primary) hypertension (principal); E03.9 Hypothyroidism, unspecified | CPT/HCPCS: 84439; 84443; 85025 ==

== ENCOUNTER → 2025-03-07 12:05 | Outpatient (BNVA) | payer MEDICARE, SELFPAY | PROVIDERS: PCP Family Medicine; Visit Provider Nurse Practitioner | DX: Z98.890 Other specified postprocedural states (principal); Z96.642 Presence of left artificial hip joint | CPT/HCPCS: 73502; 99024 ==

== ENCOUNTER 2025-03-10 15:18 | Outpatient (CLI) | payer MEDICARE, SELFPAY ==
--- NOTE | 2025-03-10 15:20 | MM_ITS ---
WS: [id number] BILATERAL 3D TOMOSYNTHESIS DIGITAL SCREENING MAMMOGRAPHY WITH CAD CLINICAL INFORMATION: screening HISTORY: Screening mammogram. No current complaints. COMPARISON: 2023 TECHNIQUE: Bilateral CC and MLO views. FINDINGS: Scattered fibroglandular densities bilaterally. No suspicious focal mass, asymmetry, calcifications, or architectural distortion. No evidence of malignancy. A few incidental intramammary lymph nodes. A few incidental calcifications. MM/MM scr tomosynthesis [id number] IMPRESSION: DENSITY: There are scattered areas of fibroglandular density. BI-RADS: 2 - Benign. FOLLOW UP: 1 Year Follow-up Recommend return to annual screening mammography.
== END 2025-03-10 15:19 | disposition home or self-care (01) ==
PROVIDERS: PCP Family Medicine; Visit Provider Family Medicine
DX: Z12.31 Encounter for screening mammogram for malignant neoplasm of breast (principal); R92.323 Mammographic fibroglandular density, bilateral breasts; R59.0 Localized enlarged lymph nodes; R92.1 Mammographic calcification found on diagnostic imaging of breast
CPT/HCPCS: 77063; 77067

== ENCOUNTER → 2025-09-02 10:33 | Outpatient (BNVA) | payer MEDICARE, SELFPAY | PROVIDERS: PCP Family Medicine; Visit Provider Family Medicine | DX: I10 Essential (primary) hypertension (principal); E03.9 Hypothyroidism, unspecified | CPT/HCPCS: 80053; 84439; 84443 ==